=== PATIENT | female | born 1995 | race Caucasian/White ===

== ENCOUNTER 2020-03-28 14:43 | Emergency (ER) | payer OTHER, SELFPAY ==
--- NOTE | ~2020-03-28 | XR_ITS ---
XR wrist LT min 3V DATE: 03/28/2020 15:16 INDICATION: Dropped a couch on wrist yesterday. Diffuse wrist pain, particularly at first carpometaca rpal joint TECHNIQUE: 4 views COMPARISON: None FINDINGS: No fracture or dislocation, periosteal reaction or bone destruction is detected. IMPRESSION: No fracture or dislocation Reviewed, dictated and finalized at location B. IMPRESSION: No fracture or dislocation
--- NOTE | ~2020-03-28 | XR_ITS ---
XR hand LT min 3V DATE: 03/28/2020 15:15 INDICATION: TECHNIQUE: 3 views COMPARISON: None FINDINGS: No fracture or dislocation, periosteal reaction or bone destruction. IMPRESSION: Negative Reviewed, dictated and finalized at location B. IMPRESSION: Negative
[2020-03-28 15:01] VITALS: BP 100/66; PULSE 96; RESP 16; TEMP 37.1; O2SAT 100
--- NOTE | 2020-03-28 15:16 | ED.UPPEXIN ---
HPI - Extremity Injury (Upper) General Chief Complaint: Extremity Injury, Upper Stated Complaint: left hand/wrist injury Time Seen by Provider: 03/28/20 15:16 Source: patient Mode of arrival: ambulatory Limitations: no limitations History of Present Illness HPI narrative: Denise Glasgow is a 24 yo female with PMH of diabetes, migraine, comes to [facility] care with a L wrist/hand injury after dropping a piece of furniture on L hand while moving it yesterday. 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 She has been told she could have pre-hypertension Patient states that the base of the left thumb hurts and it hurts for her to flex and extend her arm fully; pain is localized in wrist to base of thumb Related Data Home Medications Medication Instructions Recorded Confirmed albuterol sulfate [ProAir HFA] 1 inh INHALATION QID PRN 10/03/19 insulin glargine [Lantus U-100 20 unit SUBCUT HS 10/03/19 Insulin] insulin lispro [Admelog SoloStar 1 unit SUBCUT TID 10/03/19 U-100 Insulin] topiramate 25 mg PO HS 10/03/19 lamotrigine 03/28/20 Allergies Allergy/AdvReac Type Severity Reaction Status Date / Time amoxicillin Allergy Rash Verified 10/03/19 09:20 sumatriptan AdvReac BODY FELT Verified 10/03/19 09:21 LIKE IT WAS ON FIRE Review of Systems Review of Systems: Narrative: CONSTITUTIONAL: Denies fever, chills, sweats. EYES: Denies visual changes, redness, discharge. ENT: Denies rhinorrhea, congestion, sore throat, otalgia. CARDIOVASCULAR: Denies chest pain, palpitations, edema. RESPIRATORY: Denies dyspnea, wheezing, cough GASTROINTESTINAL: Denies abdominal pain, nausea, vomiting, diarrhea. GENITOURINARY: Denies dysuria, hematuria, abnormal discharge SKIN: Denies rash or itching. NEUROLOGIC: Denies numbness, or focal weakness. PSYCHIATRIC: Denies anxiety or depression. Extremity: Left wrist and hand pain PMFSH Family History Family History Mother Family history of osteoporosis Family history of mental disorder Hypertension Grandparent Family history of osteoporosis Hypertension Malignant neoplasm of prostate Family history of congestive heart failure Family history of hearing loss Diabetes mellitus Father Depression Hypertension Family history of chronic obstructive pulmonary disease Family history of diabetes mellitus in first degree relative Family history of coronary artery disease Family history of hearing loss Sibling Family history of attention deficit hyperactivity disorder (ADHD) Social History Social History (Updated 03/28/20 @ 15:25 by April Moreno CNP) Smoking packs per day: 1 Smoking cigarettes per day: 20.0 Smoking status: Current every day smoker Alcohol intake: never Comments At time of signature, I agree with nursing past medical, surgical, social and family history. There is no relevant family history pertinent to the presenting complaint. Exam Narrative: Exam Narrative: GENERAL: This is a well-nourished, well-developed patient, in mild distress. HEAD: normocephalic, atraumatic. EYES: Sclera clear/white. Vision is grossly intact. EARS: External ears normal,. Hearing grossly intact. NOSE: External nose normal without nasal discharge, nares without redness, no rhinorrhea. THROAT: Mucous membranes moist, NECK: Neck suppler CARDIOVASCULAR: Regular rate and rhythm without murmurs, gallops, or rubs. RESPIRATORY: Clear to auscultation. Breath sounds equal bilaterally. No wheezes, rales, or rhonchi. GASTROINTESTINAL: Abdomen soft, SKIN: warm, intact with no suspicious lesions or rash, good texture and turgor. NEURO: awake, alert, and oriented to person, place and time. There were no obvious focal neurologic abnormalities. Steady gait EXTREMITIES: Normal range of motion on R; L - pain at base of thumb, good energy finger strength, mild pain on supin
== END 2020-03-28 15:43 | disposition home or self-care (01) ==
PROVIDERS: Emergency Provider Nurse Practitioner; PCP Family Medicine
DX: S63.502A Unspecified sprain of left wrist, initial encounter (principal); S66.912A Strain of unspecified muscle, fascia and tendon at wrist and hand level, left hand, initial encounter; W20.8XXA Other cause of strike by thrown, projected or falling object, initial encounter; E10.9 Type 1 diabetes mellitus without complications; F17.210 Nicotine dependence, cigarettes, uncomplicated
CPT/HCPCS: 73110; 73130; 99213; G0463

== ENCOUNTER 2020-08-11 12:35 | Emergency (ER) | payer OTHER, SELFPAY ==
--- NOTE | ~2020-08-11 | CT_ITS ---
EXAMINATION: CT abdomen pelvis wo con DATE: 08/11/2020 14:18 INDICATION: Left flank pain. Hematuria. TECHNIQUE: Computed tomography (CT) of the abdomen and pelvis was performed without intravenous contr ast. Automated exposure control and iterative reconstruction technique were employed. The dose-length product was 177.49 mGy-cm. COMPARISON: CT abdomen and pelvis 01/30/2018 FINDINGS: The visualized portions of the lung bases demonstrate mild atelectasis. No pleural effusion . The heart size is normal. No pericardial effusion. The liver, gallbladder, spleen, pancreas, and ad renal glands are normal. There is a 2 mm stone in right kidney. There is a 7 mm stone in left kidney. There are no dilated loops of bowel. The appendix is not visualized. There are no pathologically enl arged lymph nodes. There is no free intraperitoneal fluid. The bones are unremarkable. IMPRESSION: 1. Bilateral nonobstructing kidney stones. Reviewed, dictated and finalized at location B. . [employer]
[2020-08-11 13:13] VITALS: BP 128/87; PULSE 105; RESP 16; TEMP 36.4; O2SAT 99
--- NOTE | 2020-08-11 13:24 | ED.FEMALEGU ---
HPI - Female Genitourinary General Chief complaint: Urogenital-Female Stated complaint: HEMATURIA,L FLANK PAIN Time Seen by Provider: 08/11/20 13:22 Source: patient Mode of arrival: ambulatory Limitations: no limitations History of Present Illness HPI Narrative: Patient is a 25-year-old female complaining of left flank pain accompanied by hematuria that started 1 week ago. Patient states her pain is a 6 out of 10 sharp, nonradiating. Patient denies any nausea, vomiting, diarrhea or fever. Patient denies any abdominal pain, chest pain or shortness of breath. Related Data Home Medications Medication Instructions Recorded Confirmed albuterol sulfate [ProAir HFA] 1 inh INHALATION QID PRN 10/03/19 insulin glargine [Lantus U-100 20 unit SUBCUT HS 10/03/19 Insulin] insulin lispro [Admelog SoloStar 1 unit SUBCUT TID 10/03/19 U-100 Insulin] topiramate 25 mg PO HS 10/03/19 lamotrigine 03/28/20 Allergies Allergy/AdvReac Type Severity Reaction Status Date / Time amoxicillin Allergy Rash Verified 10/03/19 09:20 sumatriptan AdvReac BODY FELT Verified 10/03/19 09:21 LIKE IT WAS ON FIRE Review of Systems Review of Systems: All systems reviewed & are unremarkable except as noted in HPI and below Constitutional: Constitutional: Denies body ache(s), Denies chills, Denies excessive sweating, Denies fatigue, Denies fever(s), Denies headache(s), Denies lethargy, Denies malaise, Denies weakness and Denies weight loss Eyes: Eyes: Denies blurry vision, Denies change in vision and Denies loss of vision ENT: Denies dizziness, Denies ear discharge, Denies headache(s), Denies lip swelling, Denies epistaxis, Denies nasal congestion, Denies neck pain, Denies throat swelling and Denies tongue swelling Cardiovascular: Cardiovascular: Denies chest pain, Denies chest pain at rest, Denies chest pain with activity, Denies diaphoresis, Denies rapid heart rate, Denies edema, Denies irregular heart rhythm, Denies lightheadedness, Denies palpitations, Denies dyspnea and Denies dyspnea on exertion Respiratory: Respiratory: Denies chest congestion, Denies cough, Denies hemoptysis, Denies dyspnea and Denies dyspnea on exertion Gastrointestinal: Gastrointestinal: Denies abdominal pain, Denies melena, Denies hematochezia, Denies diarrhea, Denies nausea, Denies vomiting and Denies hematemesis Musculoskeletal: Musculoskeletal: Denies abnormal gait, Denies deformity, Denies joint swelling, Denies limited range of motion, Denies neck pain and Denies numbness Neurologic: Denies Abnormal speech present, Denies abnormal gait, Denies confusion, Denies dizziness, Denies headache(s), Denies focal weakness, Denies loss of vision, Denies numbness, Denies Other visual disturbances, Denies Sensory deficit (Neuro) and Denies weakness Psychiatric: Psychiatric: Denies confusion, Denies depression, Denies auditory hallucinations, Denies homicidal ideation and Denies suicidal ideation Endocrine: Endocrine: Denies cold intolerance, Denies excessive sweating, Denies fatigue, Denies heat intolerance and Denies palpitations Hematologic/Lymphatic: Hematologic/Lymphatic: Denies easy bleeding and Denies easy bruising Allergic/Immunologic: Allergic/Immunologic: Denies lip swelling, Denies throat swelling and Denies tongue swelling [facility] Family History Family History Mother Family history of osteoporosis Family history of mental disorder Hypertension Grandparent Family history of osteoporosis Hypertension Malignant neoplasm of prostate Family history of congestive heart failure Family history of hearing loss Diabetes mellitus Father Depression Hypertension Family history of chronic obstructive pulmonary disease Family history of diabetes mellitus in first degree relative Family history of coronary artery disease Family history of hearing loss Sibling Family history of attention deficit
[2020-08-11 13:45] LABS: Basophils Absolute Auto 0.1 K/mm3 (0.0-0.1); Basophils Percent Auto 1.2 % (0.2-1.2); Eosinophils Absolute Auto 0.2 K/mm3 (0-0.3); Eosinophils Percent Auto 2.4 % (0-4.4); Hematocrit 40.6 % (37.0-47.0); Hemoglobin 13.9 g/dL (12.0-15.0); Immature Granulocyte Absolute 0.04 K/mm3 (0.00-0.031); Immature Granulocyte Percent A 0.5 % (0-0.5); Lymphocytes Absolute Auto 2.82 K/mm3 (0.9-3.2); Lymphocytes Percent Auto 35.2 % (18.3-44.2); Mean Corpuscular HGB Conc 34.2 g/dl (32-36); Mean Corpuscular Hemoglobin 31.7 pg (26-34); Mean Corpuscular Volume 92.5 fl (80-100); Mean Platelet Volume 10.1 fl (7.4-10.4); Monocytes Absolute Auto 0.4 K/mm3 (0.1-0.6); Monocytes Percent Auto 4.5 % (2.6-8.5); Neutrophils Absolute Auto 4.5 K/mm3 (1.3-6.7); Neutrophils Percent Auto 56.2 % (45.5-73.1); Platelet Count Result 372 k/mm3 (150-375); Red Blood Count 4.39 M/mm3 (4.2-5.4); Red Cell Distribution Width 12.6 % (11.5-14.5)
[2020-08-11 13:58] LABS: Anion Gap 7 mmol/L (8-16); Blood Urea Nitrogen 21 mg/dL (7-17); Calcium 9.3 mg/dL (8.4-10.2); Carbon Dioxide 31 mmol/L (22-30); Chloride 100 mmol/L (98-107); Estimated Glomerular Filt Rate > 60; Glucose 248 mg/dL (65-105); Sodium 138 mmol/L (137-145)
[2020-08-11 14:00] LABS: Add Urine Microscopic? YES; Appearance Urine Cloudy (Clear); Bilirubin Urine Negative (Negative); Blood Urine 3+ (Negative); Color Urine Red (Yellow); Glucose Urine UA 3+ mg/dL (Negative); Ketones Urine Negative (Negative); Leukocyte Esterase Ur Negative LEU/UL (Negative); Mucus Urine Few /lpf; Nitrate Urine Negative (Negative); Protein Urine 2+ mg/dL (Negative); RBC Urine >75 /hpf (0-2); Specific Grav Ur 1.028 (1.001-1.035); Squamous Epithelial Cell Urine Few /hpf (Few); Urobilinogen Urine Negative mg/dL (<2.0)
[2020-08-11] MEDS: KETOROLAC 30 MG/ML VIAL (*BKC) IV PUSH (14:01)
[2020-08-11] MEDS: SODIUM CHLORIDE 0.9% IV 1,000 ML 999 ML IV CONT (14:01)
[2020-08-11 16:12] VITALS: BP 119/68; PULSE 72; RESP 16; O2SAT 100
== END 2020-08-11 16:12 | disposition home or self-care (01) ==
PROVIDERS: Emergency Medicine; Emergency Provider Emergency Medicine; PCP Family Medicine
DX: N20.0 Calculus of kidney (principal); E10.65 Type 1 diabetes mellitus with hyperglycemia; F17.210 Nicotine dependence, cigarettes, uncomplicated
CPT/HCPCS: 36415; 74176; 80048; 81001; 81025; 85025; 96361; 96374; 99284; J1885; J7030

== ENCOUNTER 2021-04-22 09:23 | Outpatient (CLI) | payer OTHER, SELFPAY ==
--- NOTE | ~2021-04-22 | XR_ITS ---
EXAMINATION: XR lumbar puncture diagnostic DATE: 04/22/2021 12:06 INDICATION: Multiple sclerosis TECHNIQUE: The procedure including the risks and benefits was discussed with the patient. Risks discu ssed included spinal headache, cerebrospinal fluid leak, bleeding, and infection. The patient underst ood the risks and agreed to proceed. A timeout was performed to verify the patient's name, date of , and procedure to be performed. The skin overlying the L4-L5 level was prepped and draped in usual sterile fashion. Subcutaneous 1% lidocaine was used for local anesthesia. A 22 gauge spinal n eedle was advanced under fluoroscopic guidance. The needle was removed and the entry site was cleaned and dressed. There were no immediate complications. The patient was taken to the nursing area for o bservation. FINDINGS: Real-time fluoroscopy demonstrates the needle at the L4-L5 level. Opening pressure was 12 c m water. (Normal range is variably defined as 6-20 cm water and up to 25 cm water in obese patients. Pressure >25 cm water is one of the modified Dandy criteria for idiopathic intracranial hypertension) . 15 mL of clear, colorless fluid was collected in 4 tubes. IMPRESSION: 1. Successful fluoro-guided lumbar puncture. Reviewed, dictated and finalized at location A.
[2021-04-22 10:12] LABS: Basophils Absolute Auto 0.1 K/mm3 (0.0-0.1); Basophils Percent Auto 1.1 % (0.2-1.2); Eosinophils Absolute Auto 0.2 K/mm3 (0-0.3); Eosinophils Percent Auto 2.1 % (0-4.4); Hematocrit 42.6 % (37.0-47.0); Hemoglobin 14.5 g/dL (12.0-15.0); Immature Granulocyte Absolute 0.05 K/mm3 (0.00-0.031); Immature Granulocyte Percent A 0.5 % (0-0.5); Lymphocytes Absolute Auto 3.29 K/mm3 (0.9-3.2); Mean Platelet Volume 10.3 fl (7.4-10.4); Monocytes Absolute Auto 0.5 K/mm3 (0.1-0.6); Monocytes Percent Auto 5.5 % (2.6-8.5); Neutrophils Absolute Auto 5.2 K/mm3 (1.3-6.7); Neutrophils Percent Auto 55.8 % (45.5-73.1); Platelet Count Result 329 k/mm3 (150-375); Red Blood Count 4.68 M/mm3 (4.2-5.4); White Blood Count 9.4 K/mm3 (4.5-10.0)
[2021-04-22 10:21] LABS: INR 0.8; Prothrombin Time 11.5 Seconds (11.1-14.7)
[2021-04-22 10:45] VITALS: BP 109/71; PULSE 119; RESP 20; O2SAT 100
[2021-04-22 11:28] VITALS: BP 119/80; PULSE 92; RESP 20; O2SAT 100
[2021-04-22 11:45] VITALS: BP 111/78; PULSE 93; RESP 16; O2SAT 98
--- NOTE | 2021-04-22 11:55 | SUR.PHASEII ---
1145 no complaints headache,or blurred vision.
[2021-04-22 12:08] LABS: Glucose Point of Care 135 mg/dl (65-105)
[2021-04-22 12:15] VITALS: BP 108/75; PULSE 98; RESP 16
[2021-04-22 12:45] VITALS: BP 110/76; PULSE 81; RESP 16
[2021-04-22 13:02] LABS: Glucose CSF 152 mg/dL (40-70); Total Protein CSF 49 mg/dL (12-60)
[2021-04-22 13:06] LABS: Appearance CSF Clear (Clear); CSF source CSF; Color CSF Colorless (Colorless); Nucleated Cell CSF 10 /uL (0-5); Red Blood Cell CSF 100 (0-2)
[2021-04-22 13:10] LABS: Lymphocytes CSF 92 % (40-80); Monocytes CSF 8 % (15-45); Neutrophils CSF 0 % (0-6)
[2021-04-22 13:15] VITALS: BP 108/76; PULSE 88; RESP 16
--- NOTE | 2021-04-22 13:20 | SUR.PHASEII ---
1320- Dr. Harris to outpatient room 14 to assess [address] Per Dr[address] Harris patient is OK for discharge home at this time.
--- NOTE | 2021-04-22 13:25 | SUR.PHASEII ---
1325- Reviewed patient's discharge instructions and patient verbalized understanding at this time.
[2021-04-29 04:05] LABS: Albumin, CSF 18.3 mg/dL (8.0-42.0); Albumin, Serum 4.4 g/dL (3.5-5.2); IgG Index, CSF 0.51 (<0.66); IgG, CSF 1.7 mg/dL (0.8-7.7); Immunoglobulin G, Serum 799 mg/dL (600-1640); Myelin Basic Protein, CSF <2.0 mcg/L (2.0-4.0)
== END 2021-04-22 13:30 | disposition home or self-care (01) ==
PROVIDERS: Radiology Diagnostic Radiology; PCP Family Medicine; Visit Provider Psychiatry & Neurology Neurology
DX: G35 Multiple sclerosis (principal)
CPT/HCPCS: 36415; 62328; 82040; 82042; 82784; 82945; 82948; 83873; 83916; 84157; 85025; 85610; 87070; 89051

== ENCOUNTER 2021-11-16 00:19 | Day surgery (SDC) | payer OTHER, SELFPAY ==
[2021-11-13 12:54] VITALS: BMI 21.2
--- NOTE | 2021-11-13 13:00 | PM.HPGS ---
History of Present Illness History of Present Illness Consent: Risks, benefits, and alternatives have been discussed and questions answered. Patient agrees to proceed with procedure. Chief complaint: abdominal pain, bloating Narrative: Denise Glasgow is a 26 year old female who has been troubled by severe diarrhea for about 2 years this is accompanied by weight loss and abdominal discomfort. she often gets sick to her stomach when she eats a meal and then this leads to a bowel movement She has often afraid to eat because she knows that she will have abdominal discomfort and then loose bowels, having up to 8 bowel movements per day.. She has also been anemic although her last blood counts were said to be better. She had had testing for celiac disease with a blood test and she had a colonoscopy a month or so ago that was normal. That was done at [facility] and we are attempting to obtain those results. Although she states that the only did a colonoscopy, she was told after the procedure that they scraped my colon to check for bacteria this would be a specimen for H pylori. She is absolutely certain however that she did not have an EGD and she added that she never did hear results from anybody about the test.There is no family history of digestive diseases except her father had cancer of the colon. She has no history of liver disease pancreatic disease. She has no specific food intolerance is except that red meat seems to give her more difficulty than anything else and dairy will cause more bloating and gas 3 days after consuming it. She has lost about 27 lb in the last year or 2. She was recommended to take Imodium. States she took it for a few days, then caused constipation (so quite using it). She rarely eats breakfast. She recalls our conversation in the office about how it is important the breakfast to try to have regular bowel movements Review of Systems Review of Systems: All systems reviewed & are unremarkable except as noted in HPI and below PMFSH Past Medical History Medical History Anemia Normal colonoscopy Family History Family History Mother Family history of osteoporosis Family history of mental disorder Hypertension Grandparent Family history of osteoporosis Hypertension Malignant neoplasm of prostate Family history of congestive heart failure Family history of hearing loss Diabetes mellitus Father Depression Hypertension Family history of chronic obstructive pulmonary disease Family history of diabetes mellitus in first degree relative Family history of coronary artery disease Family history of hearing loss Sibling Family history of attention deficit hyperactivity disorder (ADHD) Social History Social History Smoking packs per day: 1.5 Smoking cigarettes per day: 30.0 Years smoked: 6 Smoking pack-years: 9.00 Smoking status: Current every day smoker Tobacco type: cigarettes Alcohol intake: never Substance use: never Substance use type: does not use Living arrangements: with family Gender identity (if verbalized by the patient): Female Spiritual care concerns: No Meds Home Medications and Allergies Home Medications Medication Instructions Recorded Confirmed Type insulin lispro 200 unit/mL (3 mL) 30 unit SUBCUT QACBREAK 03/24/21 11/13/21 History subcutaneous pen insulin glargine [Lantus Solostar 14 unit SUBCUT HS 04/23/21 11/13/21 History U-100 Insulin] clonazepam 0.5 mg PO DAILY 11/13/21 11/13/21 History Allergies Allergy/AdvReac Type Severity Reaction Status Date / Time amoxicillin Allergy Rash Verified 11/13/21 12:53 sumatriptan AdvReac BODY FELT Verified 11/13/21 12:53 LIKE IT WAS ON FIRE zolpidem [From Ambien] AdvReac Hallucinati Verified 11/13
[2021-11-16 13:10] VITALS: BP 107/71; PULSE 102; RESP 18; TEMP 36.8; O2SAT 99; BMI 21.3
[2021-11-16] MEDS: LACTATED RINGERS 1,000 ML 150 ML IV CONT (13:19)
[2021-11-16 13:24] LABS: Glucose Point of Care 271 mg/dl (65-105)
--- NOTE | 2021-11-16 13:26 | WPDANESEPPF ---
Anes - Initial Pre Proc Eval Procedure: Operation Date: 11/16/21 14:00 Proposed Procedures p Esophagogastroduodenoscopy - Enrique Coronado MD Date/Time: 11/16/21 13:26 Surgeon: Enrique Coronado MD Pre Op Diagnosis: abdominal pain, bloating Patient Data Age: 26 Gender: F Height: 1.63 m Weight: 56.3 kg Last Vital Signs Temp 36.8 C 11/16/21 13:10 Pulse 102 H 11/16/21 13:10 Resp 18 11/16/21 13:10 BP 107/71 11/16/21 13:10 Pulse Ox 99 11/16/21 13:10 Allergies Allergy/AdvReac Type Severity Reaction Status Date / Time amoxicillin Allergy Rash Verified 11/13/21 12:53 sumatriptan AdvReac BODY FELT Verified 11/13/21 12:53 LIKE IT WAS ON FIRE zolpidem [From Ambien] AdvReac Hallucinati Verified 11/13/21 12:53 ng Home Medications Medication Instructions Recorded Confirmed Type insulin lispro 200 unit/mL (3 mL) 30 unit SUBCUT QACBREAK 03/24/21 11/13/21 History subcutaneous pen insulin glargine [Lantus Solostar 14 unit SUBCUT HS 04/23/21 11/13/21 History U-100 Insulin] clonazepam 0.5 mg PO DAILY 11/13/21 11/13/21 History Laboratory Tests 11/16/21 13:19 POC Capillary Glucose 271 mg/dl H mg/dl (65-105) Patient hx anesthesia problems: none Family hx anesthesia problems: none Results Review: All pre-operative results and documents have been reviewed as part of the pre-operative evaluation. [facility] Past Medical History Medical History (Updated 04/21/21 @ 14:58 by Enrique Coronado MD) Anemia Normal colonoscopy Family History Family History Mother Family history of osteoporosis Family history of mental disorder Hypertension Grandparent Family history of osteoporosis Hypertension Malignant neoplasm of prostate Family history of congestive heart failure Family history of hearing loss Diabetes mellitus Father Depression Hypertension Family history of chronic obstructive pulmonary disease Family history of diabetes mellitus in first degree relative Family history of coronary artery disease Family history of hearing loss Sibling Family history of attention deficit hyperactivity disorder (ADHD) Social History Social History Smoking packs per day: 1.5 Smoking cigarettes per day: 30.0 Years smoked: 6 Smoking pack-years: 9.00 Smoking status: Current every day smoker Tobacco type: cigarettes Alcohol intake: never Substance use: never Substance use type: does not use Living arrangements: with family Gender identity (if verbalized by the patient): Female Spiritual care concerns: No Anes - Eval Final PreProcedure Day of Procedure 11/16/21 13:26 Patient weight: normal Heart: regular rate and rhythm Lungs: clear to auscultation Airway: Mallampati scale class II Neurological: alert and oriented Last oral intake: >/= 8 hours ASA classification: II Emergent: no Anesthetic plan: proceed Anesthesia type and monitoring: general GIVS and standard monitoring Results Review: All pre-operative results and documents have been reviewed as part of the pre-operative evaluation. Informed Consent: The patient's anesthetic plan and its attendant risks and benefits were discussed with the patient/family/POA. Questions were solicited and answers provided to the satisfaction of the patient/family/POA.
[2021-11-16] MEDS: BENZOCAINE (*SP) 60 ML SPRAY CAN (HURRICAINE) 1 SPRAY MUCOUS MEM (13:43)
[2021-11-16 13:54] VITALS: BP 108/69; PULSE 100; RESP 22; O2SAT 99
[2021-11-16 14:04] VITALS: BP 110/70; PULSE 99; RESP 26; O2SAT 99
[2021-11-16 14:07] LABS: Glucose Point of Care 269 mg/dl (65-105)
[2021-11-16 14:14] VITALS: BP 107/74; PULSE 93; RESP 22; O2SAT 96
== END 2021-11-16 14:24 | disposition home or self-care (01) ==
PROVIDERS: Visit Provider Internal Medicine Gastroenterology
PROC: 0DJ08ZZ Inspection of Upper Intestinal Tract, Via Natural or Artificial Opening Endoscopic (ICD-10-PCS; CPT 43235; principal; 2021-11-16 14:00)
DX: R10.9 Unspecified abdominal pain (principal); R14.0 Abdominal distension (gaseous); Z79.4 Long term (current) use of insulin; R63.4 Abnormal weight loss; D64.9 Anemia, unspecified; F17.210 Nicotine dependence, cigarettes, uncomplicated; R19.7 Diarrhea, unspecified
CPT/HCPCS: 43239; 82948; 87081; 88305; J2001; J2704; J7120

== ENCOUNTER 2024-12-30 21:58 | Emergency (ER) | payer OTHER, SELFPAY ==
--- NOTE | ~2024-12-30 | CT_ITS ---
Non-contrast Head CT History: Head injury Technique: Axial non-contrast imaging of the brain was performed. Dose reduction technique was used on this scan by utilizing automated exposure control and iterative reconstruction technique. The dose -length product (DLP) was 605.33 mGy-cm. Findings: There is no evidence of intracranial hemorrhage, mass lesion, or acute infarct. Brain par enchyma appears normal. The ventricles and subarachnoid spaces are normal in size. The calvarium ap pears normal. The visualized paranasal sinuses and mastoid air cells are clear. Impression: No significant abnormality seen. Reviewed, dictated and finalized at location . Impression: No significant abnormality seen.
--- NOTE | ~2024-12-30 | CT_ITS ---
Noncontrast CT scan of the cervical spine Technique: Multiple contiguous axial [address] images of the cervical spine were obtained and rec onstructed in 2D sagittal and coronal planes on the acquisition scanner. Dose reduction technique was used on this scan by utilizing automated exposure control, adjustment of the mA and/or kV according to patient size. The dose-length product (DLP) was 102.34 mGy-cm. Clinical History: C7 tenderness Findings: No fractures or dislocations. Unremarkable visualized bony structures. The intervertebral disc spaces are preserved. No prevertebral soft tissue swelling. Impression: No fracture or subluxation of the cervical spine. Reviewed, dictated and finalized at location . Impression: No fracture or subluxation of the cervical spine.
--- NOTE | ~2024-12-30 | XR_ITS ---
Right Knee Technique: AP, lateral, and oblique views were obtained. Clinical History: Pain Findings: No fracture or dislocation is seen. Osseous alignment is anatomic. Joint spaces are preserv ed without degenerative or erosive change. Soft tissues are unremarkable. No joint effusion is seen. Impression: Unremarkable right knee radiographs. Reviewed, dictated and finalized at [facility]. Impression: Unremarkable right knee radiographs.
[2024-12-30 22:00] VITALS: BP 128/53; PULSE 80; RESP 16; TEMP 36.7; O2SAT 100
--- OUTSIDE RECORDS SUMMARY | 2024-12-30 22:00 | XMS_ITS | Encounter Summary ---
Author Organization [facility] Address [address] [facility] [place] [address] Phone Care Team Providers Care Turning Machine Set Up Operator Name Role Phone Arthur King RHIT, LANDSCAPE NURSERYMAN Primary Care Pr ovider Luzmaria Cates MD Unavailable Henri West MD Unavailable [phone] Maura Lenz RHIT, LANDSCAPE NURSERYMAN Unavailable [phone] Reason for Referral * Radiology Services (Routine) - Authorized Specialty Diagnoses / Procedures Referred By Contac t Referred To Contact Radiology Diagnoses Abnormal mammogram Procedures DOMINIQUE DIAG LEFT UNILATERAL DIGITAL W CAD W RAFFI Suresh Wright MD [address] [address] Phone: tel: fax: Referral ID Status Reason Start Date Expiration Date V isits Requested Visits Authorized [id number] Authorized 11/16/2024 1 1 * Radiology Services (Routine) - Authorized Specialty Diagnoses / Procedures Referred By Contac t Referred To Contact Radiology Diagnoses Abnormal mammogram Procedures DOMINIQUE BREAST LIMITED Suresh Wright MD #[address] [address] Phone: tel: fax: Referral ID Status Reason Start Date Expiration Date V isits Requested Visits Authorized [id number] Authorized 11/16/2024 1 1 Encounter Details Date Type Department Care Team (Late st Contact Info) Description 11/16/2024 Transcribe Orders [facility] [place] [address] Suresh Wright MD [address] [place] [address] [address] Abnormal mammogram (Primary Dx) Social History Tobacco Use Types Packs/Day Years Used Date Smoking Tobacco: Never Smokeless Tobacco: Never Comments:Former cigarette us e; stopped about 07/2023 Currently uses vape Alcohol Use Standard Drinks/Week Comments Not Currently 0 (1 standard drink = 0.6 oz pur e alcohol) [facility] Utilities Answer Date Recorded In the past 12 months has e [employer], gas, oil, or water [employer] threatened to shut off services in your home? Patient declined 11/13/2024 Social Connection and Isolat ion Panel [NHANES] Answer Date Recorded In a typical week, how many times do you talk on the phone with family, friends, or neighbors? More than three times a week 11/13/2024 How often do you get togethe r with friends or relatives? Patient declined 11/13/2024 How often do you attend chur or shinto services? Patient declined 11/13/2024 Do you belong to any clubs o r organizations such as latter-day groups, unions, fraternal or athletic groups, or school groups? Patient declined 11/13/2024 How often do you attend meet ings of the clubs or organizations you belong to? Patient declined 11/13/2024 Are you , , di vorced, , never , or living with a partner? Patient declined 11/13/2024 AUDIT-C Answer Date Recorded Q1: How often do you have a drink containing alc ohol? Patient declined 11/13/2024 Q2: How many drinks containi ng alcohol do you have on a typical day when you are drinking? Patient declined 11/13/2024 Q3: How often do you have si x or more drinks on one occasion? Patient declined 11/13/2024 Overall Financial Resource Strain (CARDIA) Answe r Date Recorded How hard is it for you to pa y for the very basics like food, housing, medical care, and heating? Patient declined 11/13/2024 PHQ-2 Answer Date Recorded Total Score - Questions 1-9 0 08/06 [facility] - Occupational Stress Questionnaire Answer Date Recorded Do you feel stress - tense, restless, nervous, or anxious, or unable to sleep at night because your mind is troubled all the time - these days? Very much 11/13/2024 Exercise Vital Sign Answer Date Recorde d On average, how many days pe r week do you engage in moderate to strenuous exercise (like a brisk walk)? 5 days 11/13/2024 On average, how many minutes do you engage in exercise at this level? 150+ min 11/13/2024 Hunger Vital Sign Answer Date Recorded Within the past 12 months, y ou worried that your food would run out before you got the money to buy more. Patient declined Within the past 12 months, t he food you bought just didn't last and you didn't have money to get more. Patient declined 07/2025 PRAPARE - Transportation Answer Date Re corded In the past 12 months, has l ack of transportation kept you from medical appointments or from getting medications? Patient declined 11/13/2024 In the past 12 months, has l ack of transportation kept you from meetings, work, or from getting things needed for daily living? Patient declined 11/13/2024 Housing Stability Vital Sign Answer Junior e Recorded In the last 12 months, was t here a time when you were not able to pay the mortgage or rent on time? Patient declined 11/14/19 25 In the past 12 months, how m any times have you moved where you were living? 0 11/13/2024 At any time in the past 12 m [facility], were you homeless or living in a jail (including now)? Patient declined 11/13/2024 Education Answer Date Recorded What is the highest level of school you have completed or the highest degree you have received? Some college, no degree 02/23/2023 Sexually Active Control Partners Comments Yes None Male Comments No Sex and Gender Information Value Date Recorded Sex Assigned at Not on file Legal Sex Female 9:41 AM CDT Gender Identity Not on file Sexual Orientation Not on file documented as of this encounter Progress Notes * Suresh Wright MD - 11/16/2024 9:20 AM CDT Pended orders signed. Thanks! documented in this encounter Plan of Treatment Upcoming Encounters Date Type Department Care Team (Late st Contact Info) Description 01/07/2025 9:30 AM CDT Office Visit [facility] - [facility] - [place] #2 [place] [address] Luzmaria Cates MD #[address] [address] 01/11/2025 1:30 PM CDT [facility] 1 [place] [address] Suresh Wright MD #2 [facility] [address] [place] [address] Discharge Disposition: Discharged to home or Selfcare 01/14/2025 8:30 AM CDT Office Visit [facility] - [facility] Medicine [facility] #2 [place] [address] Arthur King APRN, LANDSCAPE NURSERYMAN #2 [facility] [address] [place] [address] Scheduled Orders Name Type Priority Associated Diagnoses Orde r Schedule DOMINIQUE US BREAST LIMITED LT Imaging Routine Abnormal mammogram Expected: 12/17/2024, Expires: 05/19/2025 DOMINIQUE DIAG LEFT UNILATERAL DIGITAL W CAD W RAFFI Imaging Routine Abnormal mammogram Expected: 12/17/2024, Expires: 05/19/2025 documented as of this encounter Visit Diagnoses Diagnosis Abnormal mammogram- Primary Abnormal mammogram, unspecified documented in this encounter Additional Health Concerns Infection Onset Date Last Indicated Resolved Time Respiratory Rule-Out 12/13/2024 12/13/2024 025 10:07 AM CDT COVID - 19 12/13/2024 12/13/2024 12/13/2024 10:0 7 AM CDT Assessment Noted Time PHQ-9 Depression Total Score: 0 08/28/20 8:02 AM INDUSTRIAL CAFETERIA MANAGER documented as of this encounter Care Teams Turning Machine Set Up Operator Relationship Specialty Start Date End Date Arthur King, RHIT, LANDSCAPE NURSERYMAN #2 [facility] [address] [place] [address] PCP - General Advanced Practice Nurse 12/24/22 Luzmaria Cates MD #2 [facility] [address] [place] [address] Consulting Physician Endocrinology 02/20/24 Henri West MD #[address] [address] Consulting Physician General Surgery 07/20/24 Maura Lenz, RHIT, LANDSCAPE NURSERYMAN #2 [place] [address] Nurse Practitioner Advanced Practice Nurse 12/07/24 documented as of this encounter
--- OUTSIDE RECORDS SUMMARY | 2024-12-30 22:00 | XMS_ITS | Encounter Summary ---
Author Organization [facility] Address [address] [facility] [place] [address] Phone Care Team Providers Care Litigation Counsel Name Role Phone Arthur King APRN, ADVERTISEMENT DISTRIBUTOR Primary Care Pr ovider Luzmaria Cates MD Unavailable Henri West MD Unavailable [phone] Maura Lenz APRN, ADVERTISEMENT DISTRIBUTOR Unavailable [phone] Encounter Details Date Type Department Care Team (Late st Contact Info) Description 12/21/2024 Results Follow-Up [facility] - Family Medicine - [place] #2 [place] [address] Arthur King APRN, ADVERTISEMENT DISTRIBUTOR #[address] [address] XR CHEST 2 VIEWS Social History Tobacco Use Types Packs/Day Years Used Date Smoking Tobacco: Never Smokeless Tobacco: Never Comments:Former cigarette us e; stopped about 07/2023 Currently uses vape Alcohol Use Standard Drinks/Week Comments Not Currently 0 (1 standard drink = 0.6 oz pur e alcohol) [facility] Utilities Answer Date Recorded In the past 12 months has [employer], gas, oil, or water [employer] threatened to shut off services in your home? Patient declined 12/12/2024 Social Connection and Isolation Panel [NHANES] A nswer Date Recorded In a typical week, how many times do you talk on the phone with family, friends, or neighbors? Patient declined 12/12/2024 How often do you get togethe r with friends or relatives? Patient declined 12/12/2024 How often do you attend mu-ism or mormon serv ices? Patient declined 12/12/2024 Do you belong to any clubs o r organizations such as mu-ism groups, unions, fraternal or athletic groups, or school groups? Patient declined 12/12/2024 How often do you attend meet ings of the clubs or organizations you belong to? Patient declined 12/12/2024 Are you , , di vorced, , never , or living with a partner? Patient declined 12/12/2024 AUDIT-C Answer Date Recorded Q1: How often do you have a drink containing alc ohol? Patient declined 12/12/2024 Q2: How many drinks containi ng alcohol do you have on a typical day when you are drinking? Patient declined 12/12/2024 Q3: How often do you have si x or more drinks on one occasion? Patient declined 12/12/2024 Overall Financial Resource Strain (CARDIA) Answe r Date Recorded How hard is it for you to pa y for the very basics like food, housing, medical care, and heating? Patient declined 12/12/2024 PHQ-2 Answer Date Recorded Total Score - Questions 1-9 0 08/06 [facility] - Occupational Stress Questionnaire Answer Date Recorded Do you feel stress - tense, restless, nervous, or anxious, or unable to sleep at night because your mind is troubled all the time - these days? Patient declined 12/12/2024 Exercise Vital Sign Answer Date Recorde d On average, how many days pe r week do you engage in moderate to strenuous exercise (like a brisk walk)? 2 days 12/12/2024 On average, how many minutes do you engage in exercise at this level? 150+ min 12/12/2024 Hunger Vital Sign Answer Date Recorded Within the past 12 months, y ou worried that your food would run out before you got the money to buy more. Patient declined Within the past 12 months, t he food you bought just didn't last and you didn't have money to get more. Patient declined 05/2025 PRAPARE - Transportation Answer Date Re corded In the past 12 months, has l ack of transportation kept you from medical appointments or from getting medications? Patient declined 12/12/2024 In the past 12 months, has l ack of transportation kept you from meetings, work, or from getting things needed for daily living? Patient declined 12/12/2024 Housing Stability Vital Sign Answer Junior e Recorded In the last 12 months, was t here a time when you were not able to pay the mortgage or rent on time? Patient declined 12/13/19 25 In the past 12 months, how m any times have you moved where you were living? 0 12/12/2024 At any time in the past 12 m ont, were you homeless or living in a group home (including now)? Patient declined 12/12/2024 Education Answer Date Recorded What is the [...] on file documented as of this encounter Plan of Treatment Upcoming Encounters Date Type Department Care Team (Late st Contact Info) Description 01/07/2025 9:30 AM CDT Office Visit [facility] #2 [place] [address] Luzmaria Cates MD #2 [facility] [address] [place] [address] 01/11/2025 1:30 PM CDT [facility] 1 [place] [address] Suresh Wright MD #2 [facility] [address] [place] [address] Discharge Disposition: Discharged to home or Selfcare 01/14/2025 8:30 AM CDT Office Visit [facility] #2 [place] [address] Arthur King APRN, ADVERTISEMENT DISTRIBUTOR [address] [address] [address] documented as of this encounter Visit Diagnoses Not on filedocumented in this encounter Additional Health Concerns Assessment Noted Time PHQ-9 Depression Total Score: 0 08/28/20 8:02 AM BILINGUAL PATIENT SUPPORT CASEWORKER documented as of this encounter Care Teams Litigation Counsel Relationship Specialty Start Date End Date Arthur King, DIVIDEND CLERK, ADVERTISEMENT DISTRIBUTOR [address] [place] [address] [address] PCP - General Advanced Practice Nurse 12/24/22 Luzmaria Cates MD [address] [address] Consulting Physician Endocrinology 02/20/24 Henri West MD [address] [address] Consulting Physician General Surgery 07/20/24 Maura Lenz APRN, ADVERTISEMENT DISTRIBUTOR #2 [facility] [place] [address] Nurse Practitioner Advanced Practice Nurse 12/07/24 documented as of this encounter
--- OUTSIDE RECORDS SUMMARY | 2024-12-30 22:00 | XMS_ITS | Encounter Summary ---
Author Organization [facility] Address [address] [facility] [place] [address] Phone Care Team Providers Care Belt Operator Name Role Phone Arthur King APRN, TELECOMMUNICATIONS CABLE JOINTER Primary Care Pr ovider Luzmaria Cates MD Unavailable Henri West MD Unavailable [phone] Maura Lenz APRN, TELECOMMUNICATIONS CABLE JOINTER Unavailable [phone] Reason for Visit * Reason Comments Medication Refill Encounter Details Date Type Department Care Team (Late st Contact Info) Description 11/22/2023 Refill [facility] - [place] #2 [place] [address] Arthur King APRN, TELECOMMUNICATIONS CABLE JOINTER #[address] [address] Medication Refill Social History Tobacco Use Types Packs/Day Years Used Date Smoking Tobacco: Never Smokeless Tobacco: Never Alcohol Use Standard Drinks/Week Comments Not Currently 0 (1 standard drink = 0.6 oz pur e alcohol) PHQ-2 Answer Date Recorded Total Score - Questions 1-9 6 12/05 Education Answer Date Recorded What is the highest level of school you have completed or the highest degree you have received? Some college, no degree 02/23/2023 Comments No Sex and Gender Information Value Date Recorded Sex Assigned at Not on file Legal Sex Female 9:41 AM CDT Gender Identity Not on file Sexual Orientation Not on file documented as of this encounter Miscellaneous Notes * Telephone Encounter - Lyn Currie RN - 11/22/2023 12:23 PM CDT [facility] Medication Refill Standing Order for Pediatricand Adult Patients. Requested Prescriptions Pending Prescriptions Disp Refills Continuous Blood Gluc Sensor (Dexcom G6 Sensor) Misc [Pharmacy Med Name: DEXCOM G6 SENSOR] 3 Each 2 Sig: CHANGE SENSOR EVERY 10 DAYS Diabetic Supplies Protocol Passed - 11/22/2023 10:29 AM Passed - Visit with relevant provider in past 6 months Recent Visits Date Type Provider Dept 07/15/23 Office Visit Arthur King APRN, [facility] 06/07/23 Office Visit Arthur King APRN, [facility] Mario Showing recent visits within past 182 days and meeting all other requirements Future Appointments No visits were found meeting these conditions. Showing future appointments within next 90 days and meeting all other requirements documented in this encounter Plan of Treatment Upcoming Encounters Date Type Department Care Team (Late st Contact Info) Description 01/07/2025 9:30 AM CDT Office Visit [facility] Medical [facility] - Endocrinology [facility] #2 [place] [address] Luzmaria Cates MD #2 [facility] [address] [place] [address] 01/11/2025 1:30 PM CDT [facility] 1 [place] [address] Suresh Wright MD #2 [facility] [address] [place] [address] Discharge Disposition: Discharged to home or Selfcare 01/14/2025 8:30 AM CDT Office Visit [facility] Medical [facility] - Family Medicine [facility] #2 [place] [address] Arthur King APRN, TELECOMMUNICATIONS CABLE JOINTER #2 [place] [facility] [address] [place] [address] documented as of this encounter Visit Diagnoses Not on filedocumented in this encounter Additional Health Concerns Infection Onset Date Last Indicated Resolved Time Respiratory Rule-Out 12/13/2024 12/13/2024 025 10:07 AM CDT COVID - 19 12/13/2024 12/13/2024 12/13/2024 10:0 7 AM CDT Assessment Noted Time PHQ-9 Depression Total Score: 6 12/25/19 23 8:32 AM CDT documented as of this encounter Care Teams Belt Operator Relationship Specialty Start Date End Date Arthur King APRN, TELECOMMUNICATIONS CABLE JOINTER #[address] [place] [address] [address] PCP - General Advanced Practice Nurse 12/24/22 Luzmaria Cates MD #[address] [place] [address] [address] Consulting Physician Endocrinology 02/20/24 Henri West MD #[address] [address] [address] Consulting Physician General Surgery 07/20/24 Maura Lenz APRN, TELECOMMUNICATIONS CABLE JOINTER #2 [place] [address] Nurse Practitioner Advanced Practice Nurse 12/07/24 documented as of this encounter
--- OUTSIDE RECORDS SUMMARY | 2024-12-30 22:00 | XMS_ITS | Clinical Summary ---
Author Organization [facility] Address [address] [place] [address] Care Team Providers Care Construction Project Administrator Name Role Phone Unavailable Primary Care Provider Unavailabl e Social History Tobacco Use Types Packs/Day Years Used Date Smoking Tobacco: Never Assessed Comments Unknown Sex and Gender Information Value Date Recorded Sex Assigned at Not on file Legal Sex Female 6:59 PM CDT Gender Identity Not on file Sexual Orientation Not on file Plan of Treatment Health Maintenance Due Date Last Done Comments Cervical Cancer Screening Pa p Smear (Age 30 to 64) Every 3 Years 1993 Annual Physical 1996 Hepatitis C 2011 DTaP, Tdap and Td Vaccines ( 1 - Tdap) 2012 Hepatitis B Vaccines (1 of 3 - 19+ 3-dose series) 2012 Cervical Cancer Screening Pa p with HPV Testing (Age 30 to 64) Every 5 Years 2023 Cervical Cancer Screening with HPV 2023 COVID-19 Vaccine (2023-2 5 season) 2024 HPV Vaccines Aged Out No longer eligi ble based on patient's age to complete this topic Meningococcal B Vaccine Aged Out No l onger eligible based on patient's age to complete this topic Meningococcal Vaccine Aged Out No nila christy eligible based on patient's age to complete this topic Pneumococcal Vaccine: Pediat rics (0 to 5 Years) and At-Risk Patients (6 to 49 Years) Aged Out No longer eligible b ased on patient's age to complete this topic RSV Immunizations Under 20 Months Aged Out No longer eligible based on patient's age to complete this topic
--- OUTSIDE RECORDS SUMMARY | 2024-12-30 22:00 | XMS_ITS | Clinical Summary ---
Author Organization [facility] Address [address] [place] [address] Care Team Providers Care Backwinder Name Role Phone Cami Mata MD Primary Care Provider [phone] Source Comments [facility],non-owned Affiliates and Associated Physician Practices is amultiple site organization consisting of ambulatory clinics and hospital sitesin [place], [place], [place] and [place]. This disclosure is being madepursuant to the Care Everywhere program and may not contain all information available regarding this patient. Last updated 18.[facility] Allergies No known active allergies Medications * Be aware that medications may not be up to date on this document. Alwaysverify current medications with the patient. Vit-Fe Fumarate-FA ( VITAMIN) 28-0.8 MG tabletIndicati ons: Take 1 Tab by mouth once daily. Indications: Active ferrous sulfate 325 (65 FE) MG tablet Take 325 mg by mouth once daily. Active Cholecalcifero l (VITAMIN D) 1000 UNIT capsule Take 1,000 Units by mouth every 30 days. Times two more doses Active blood glucose (FREESTYLE INSULINX TEST) test strip 50 Strip 3 3 Active Lancets Fine 28G [facility] For glucose monitoring. 100 Each 3 3 Active insulin lispro (HUMALOG) injection Inject 0-100 Units subcutaneously 3 times daily before meals. Inject 0-1 mL subcutaneously 3 times daily before meals. .................. .................. ......... BREAKFAST, LUNCH AND DINNER SUPPLEMENTAL INSULIN: Give as AC supplement: ~ ~ ~ ~ ~ ~ ~ ~ ~ Finger Stick Blood Glucose Add 1 unit lispro for every 50 units above 130 130 to 180 give 1 extra unit 181 to 230 give 2 extra units 231-280 give 3 extra units And so on 1 Box 3 3 Active insulin lispro (HUMALOG) injectionIndic ations:Type 1 Diabetes Mellitus Inject 1 Units subcutaneously 3 times daily before meals. Inject 0.01 mL subcutaneously 3 times daily before meals. ............ Sub Q Orders Insulin / CHO Ratio ~ ~ ~ ~ ~ ~ ~ ~ ~ 1 unit for every 10 carbs for meals 1 unit for every 15 carbs for snacks Indications: Insulin-Dependent Diabetes Indications: Insulin-Dependent Diabetes 1 Box 3 3 Active glucagon (GLUCAGON EMERGENCY) injection Inject 1 time for hypoglycemia 1 mg 3 3 Active insulin detemir (LEVEMIR) injection Inject 4 units before breakfast and 6 units before bedtime. 10 mL 3 3 Active insulin syringe-needle (BD ULTRAFINE II) 31G X 5/16 0.5 ML syringe For insulin administration. 100 Syringe 3 3 Active blood glucose (FREESTYLE INSULINX TEST) test strip Use 1 Strip. 3 Box 6 3 Active insulin syringe-needle (B-D INSULIN SYRINGE) 31G X 5/16 0.3 ML syringe 1 Each by Injection route as directed. For insulin qAM/HS and with meals. Addiitonally with SSI 200 Each 6 3 Active insulin glargine (LANTUS SOLOSTAR PEN) INJ injection Take 6units in the morning and 4 units 12 hours later in the evening 2 Pen 5 3 Active Active Problems Patient Care Coordination No te Formatting of this note migh t be different from the original. Diabetic Please ask patient about genetic screening at 19wk visit Problem Noted Date Diagnosed Date Short interval between pregn ancies complicating , antepartum 02/20/2013 History of delivery, currently 02/20/2013 Hx of preeclampsia, prior , currently p regnant 02/20/2013 Teen 02/20/2013 Type 1 diabetes mellitus 02/20/2013 Overview (02/23/2013): Hgb A1c = 9 on 02/20/13 24hr urine 115mg on 02/21/13 Insulin regimen as of 02/23: carbs 1:12 for meals and snacks, additional 1 unit for every 50 over 130. Also Lantus 6 in AM, and 4 before bed Supervision of other high-risk 013 Overview (07/13/2015): Dating by L=6 week documented US (in media) Prenatals: O+/I/-/-, NR PLEASE ASK PATIENT ABOUT GENETIC SCREENING AT APPT AT 19WGA Family History Medical History Relation Name Comments Colon Cancer after age 50 or unknown Father dx'ed at 54 Diabetes Father Heart Disease Father Hypertension Father Diabetes Maternal Grandfather Hypertension Maternal Grandfather Diabetes Maternal Grandmother Hypertension Maternal Grandmother Hypertension Mother Diabetes Paternal Grandfather Diabetes Paternal Grandmother Hypertension Paternal Grandmother Relation Name Status Comments Brother Alive Father Alive Maternal Grandfather Maternal Grandmother Alive Mother Alive Paternal Grandfather Paternal Grandmother Alive Sister Alive Social History Tobacco Use Types Packs/Day Years Used Date Smoking Tobacco: Never Smokeless Tobacco: Never Alcohol Use Standard Drinks/Week Comments No 0 (1 standard drink = 0.6 oz pur e alcohol) Comments No Sex and Gender Information Value Date Recorded Sex Assigned at Not on file 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 Gender Identity Not on file Sexual Orientation Not on file Last Filed Vital Signs Vital Sign Reading Time Taken Comments Blood Pressure 128/83 05/01/2013 3:29 PM CDT Pulse 64 02/28/2013 2:00 PM CDT Temperature 36.9 C (98.5 F) 02/23/2013 8:50 AM CDT Respiratory Rate 18 02/28/2013 2:00 PM CDT Oxygen Saturation 99% 02/21/2013 7:20 AM CDT Inhaled Oxygen Concentration - - Weight 51.3 kg (113 lb 3.2 oz) 05/01/2013 3:29 P M CDT Height 162.6 cm (5' 4 ) 02/28/2013 2:00 PM CDT Body Mass Index 19.43 02/28/2013 2:00 PM CDT Plan of Treatment Health Maintenance Due Date Last Done Comments PAP SMEAR 1993 HIV SCREENING 2008 HEPATITIS C SCREENING 04/18/2011 DTAP/TDAP/TD VACCINES (1 - Tdap) 2012 HEPATITIS B VACCINE (1 of 3 - 19+ 3-dose series) 2012 PNEUMOCOCCAL VACCINE (1 of 2 - PCV) 2012 COVID-19 VACCINE (1 - 2023-2 5 season) 2024 DEPRESSION SCREENING 09/05/2024 INFLUENZA VACCINE (Season Ended) 2025 05/28/20 16 ZOSTER VACCINE (1 of 2) 2043 HIB VACCINE Aged Out No longer eligi ble based on patient's age to complete this topic HPV VACCINE Aged Out No longer eligi ble based on patient's age to complete this topic MENINGOCOCCAL (Group B) VACC INE SHARED DECISION-MAKING Aged Out No longer eligibl e based on patient's age to complete this topic MENINGOCOCCAL GROUPS A/C/Y/W VACCINE Aged Out No longer eligible b ased on patient's age to complete this topic Insurance [facility] MEDICAID - [place] [id number] Advance Directives * FULL RESUSCITATION (Latest Code Status on File) Date Activated Date Inactivated Comments 02/20/2013 8:29 PM 02/23/2013 3:32 PM Care Teams Backwinder Relationship Specialty Start Date End Date Cami Mata MD [address] [place] [phone] PCP - General 10/15/20
--- OUTSIDE RECORDS SUMMARY | 2024-12-30 22:00 | XMS_ITS | Referral Summary ---
Author Organization [facility] Address [address] [place] [address] Care Team Providers Care Supervisor Pipeline Maintenance Name Role Phone Arthur King NP Primary Care Provider Allergies Active Allergy Reactions Criticality Noted Date Comments Amoxicillin Hives,Rash Medium 03/20/2021 Clonazepam Unknown High 03/20/2021 Hydrocodone Headache Low 03/20/2021 Sumatriptan Unknown 09/13/2019 Varenicline Other (See comments) Low 03/20/2021 Zolpidem Unknown 09/13/2019 Medications pen needle, diabetic 32 gauge x 32 needle use with pen needles to inject insulin daily 7 Active glucagon (glucagon) 1 mg kit Use as directed for low blood sugar. 1 kit 3 0 Active acetaminophen-cod eine (TYLENOL with CODEINE #3) 300-30 mg per tablet 0 Active buPROPion XL (WELLBUTRIN XL) 150 mg 24 hr tablet Take 150 mg by mouth daily 1 Active OneTouch Verio test strips strip Use to check blood glucose 4 times day DX E10.65 150 each 11 1 Active escitalopram (LEXAPRO) 10 mg tablet Take 10 mg by mouth every morning 2 Active insulin glargine (insulin glargine) 100 unit/mL (3 mL) pen for injection Inject 15 Units under the skin daily 15 mL 6 2 Active OneTouch Delica Plus Lancet 30 gauge misc Use to monitor glucose levels DX E10.65 150 each 2 2 Active hydrOXYzine (ATARAX) 25 mg tablet TAKE 1 TABLET BY MOUTH THREE TIMES A DAY NEEDED FOR 30 DAYS 2 Active naproxen (NAPROSYN) 500 mg tablet TAKE 1 TABLET BY MOUTH TWICE A DAY WITH MEALS FOR 10 DAYS 2 Active nitrofurantoin monohydrate (MACROBID) 100 mg capsule TAKE 1 CAPSULE BY MOUTH 12 WITH MEALS FOR 5 DAYS 2 Active traZODone (DESYREL) 50 mg tablet TAKE 1 TABLET BY MOUTH EVERY DAY AT BEDTIME NEEDED FOR 30 DAYS 2 Active buPROPion SR (WELLBUTRIN SR) 150 mg 12 hr tablet TAKE 1 TABLET EVERYDAY FOR 3 DAYS THEN TAKE 1 TABLET TWICE A DAY FOR 30 DAYS 2 Active TRUEplus Pen Needle 31 gauge x 3/16 needle USE FOUR TIMES DAILY 2 Active glucagon 1 mg kitIndications:Ty pe 1 diabetes mellitus with hyperglycemia (HCC) Use as directed for low blood sugar. 1 kit 11 3 Active Dexcom G6 Transmitter deviceIndications :Type 1 diabetes mellitus with hyperglycemia (HCC) Dx: E10.65. Change transmitter every 90 days. 1 each 3 3 Active Omnipod 5 G6 Pods, Gen 5, cartridge CHANGE POD EVERY 3 DAYS 30 each 1 4 Active Dexcom G6 Sensor deviceIndications :Type 1 diabetes mellitus with hyperglycemia (HCC) CHANGE EVERY 10 DAYS 9 each 4 Active insulin aspart (NovoLOG) 100 unit/mL vial for injectionIndicati ons:Type 1 diabetes mellitus with hyperglycemia (HCC) INJECT UP TO 50 UNITS PER DAY VIA INSULIN PUMP 50 mL 3 4 Active insulin lispro (HumaLOG, ADMELOG) 100 unit/mL vial for injectionIndicati ons:Type 1 diabetes mellitus with hyperglycemia (HCC) INJECT UP TO 50 UNITS PER DAY VIA INSULIN PUMP 50 mL 2 4 Active Active Problems Problem Noted Date Diagnosed Date BMI 20.0-20.9, adult 10/14/2022 Assessment & Plan (10/14/2022 1:17 PM FACILITY OPERATIONS MANAGER): BMI is acceptable for this patient. Discussed healthy diet and importance of regular physical activity (20- 30min/day, 150min/wk). Physically active at work walking all day. Insulin pump in place 03/18/2022 Assessment & Plan (10/14/2022 1:18 PM FACILITY OPERATIONS MANAGER): Changed CF from 75 to 70. All other settings unchanged. Aware to send [employer] message if seeing patterns of uncontrolled BS. Assessment & Plan (03/18/2022 2:17 PM CDT): BR 0.5 CR 15 Continue same other settings for now. Migraine 09/13/2019 Depression 09/13/2019 Type 1 diabetes mellitus with hyperglycemia 10/07 Assessment & Plan (10/14/2022 1:19 PM FACILITY OPERATIONS MANAGER): Please call to set up diabetic eye exam. Changed CF from 75 to 70. All other settings unchanged. Aware to send [employer] message if seeing patterns of uncontrolled BS. To send update in 1-2 weeks. Current medications: Humalog via Omnipod 5 BR 0.5 CR 15 CF change to 70 Target 110 AIT 4 hrs Assessment & Plan (03/18/2022 3:56 PM CDT): Chronic problem, signficantly improving. Adjust settings per below based on glucose patterns. We reviewed activity mode when needed. Discussed her pump options. Depending on insurance she may have 30 day time frame to return t-slim. She will call [employer] to check on this. Recommend that she also get in touch with [employer] (I gave her the rep's information) and find out what her options are. Either way, recommend she stay on the pump as it has worked much better for her which she agrees with. Assessment & Plan (01/05/2022 4:36 PM CDT): Hba1c was Lab Results Component Value Date HGBA1C 10.9 01/05/2022 today, indicating very poor DM control Goal Hba1c and blood glucose explained Diet and exercise were advised Prevention and treatment of hyypoglcyemia were discussed with the patient Blood glucose monitoring : started on DEXCOM cgm Adjustment to medications: Check your sugar before meals and bedtime Take Lantus, 15 units at bedtime Take Admelog, 4 units before meals For sugars over 150, take 6 units For sugars over 200, take 8 units For sugars over 250, take 10 units For sugars over 300, take 12 units For sugars over 400, take 14 units At bedtime, for sugars under 120 , have Bedtime snack For sugars over 200 at bedtime, take 4 units of Admelog. Will start process for a insulin pump Previous section 11/01/2014 Trichomoniasis, unspecified 11/01/2014 Resolved Problems Problem Noted Date Diagnosed Date Resolved Date History of delivery 11/01/2014 05/06/2022 Hx of preeclampsia, prior pr egnancy, currently 02/20/2013 05/06/2022 Social History Tobacco Use Types Packs/Day Years Used Date Smoking Tobacco: Every Day E-cigarettes Smokeless Tobacco: Never Tobacco Cessation:Ready to Q uit: Not Asked; Counseling Given: Not Answered PHQ-2 Answer Date Recorded PHQ-2 Total Score (If total score is 3 or more points, staff should administer the PHQ-9) 2 01/05/2022 Personal Safety Answer Date Recorded Getting School Help Needed Not on file 09/20 Comments Unknown Sex and Gender Information Value Date Recorded Sex Assigned at Not on file Legal Sex Female 8:13 AM FACILITY OPERATIONS MANAGER Gender Identity Female 01/01/2022 10:11 AM CDT Sexual Orientation Straight 01/01/2022 10 :11 AM CDT Last Filed Vital Signs Vital Sign Reading Time Taken Comments Blood Pressure 102/72 10/14/2022 11:28 AM FACILITY OPERATIONS MANAGER Pulse 99 10/14/2022 11:28 AM FACILITY OPERATIONS MANAGER Temperature - - Respiratory Rate 16 10/14/2022 11:28 AM FACILITY OPERATIONS MANAGER Oxygen Saturation 100% 02/05/2010 6:50 AM CDT Inhaled Oxygen Concentration - - Weight 57 kg (125 lb 10.6 oz) 10/14/2022 11:28 A M FACILITY OPERATIONS MANAGER Height 167.6 cm (5' 5.98 ) 10/14/2022 11:[address] Body Mass Index 20.29 10/14/2022 11:28 AM FACILITY OPERATIONS MANAGER Plan of Treatment Not on file Procedures Procedure Name Priority Date/Time Associated Diagnosis Comments HM DIABETES EYE EXAM Routine 04/01/2023 7:29 AM CDT POCT HEMOGLOBIN A1C Routine 10/14/2022 1 1:39 AM FACILITY OPERATIONS MANAGER Type 1 diabetes mellitus with hyperglycemia (HCC) EGFR Routine 03/18/2022 2:40 PM CDT Type 1 diabetes mellitus with hyperglycemia (HCC) LIPID PANEL Routine 03/18/2022 2:40 PM CDT Type 1 diabetes mellitus with hyperglycemia (HCC) ALBUMIN CREATININE RATIO, URINE Routine 03/18/2022 2:40 PM CDT Type 1 diabetes mellitus with hyperglycemia (HCC) TSH Routine 03/18/2022 2:40 PM CDT Type 1 diabetes mellitus with hyperglycemia (HCC) from Last 3 Months or Most Recently Relevant to Health Maintenance Results * DIABETES EYE EXAM (04/01/2023 7:29 AM CDT) Historical Provider HEALTH MAINTENANCE Edited Result - Final * POCT hemoglobin A1c (10/14/2022 11:39 AM FACILITY OPERATIONS MANAGER) Hemoglobin A1C, POC 6.9 % Blood 10/14/2022 11:3 9 AM FACILITY OPERATIONS MANAGER Carly Murrieta NP POINT OF CARE TEST ORDERA BLES Final Result * eGFR (03/18/2022 2:40 PM CDT) eGFR 130 mL/min/1. 73 m2 [facility] Comment: Interpretive Data Reference Interval Normal >/= 90 mL/min/1.73m2 Mildly decreased* 60 - 89 mL/min/1.73m2 Mildly to moderately decreased 45 - 59 mL/min/1.73m2 Moderately to severely decreased 30 - 44 mL/min/1.73m2 Severely decreased 15 - 29 mL/min/1.73m2 Kidney Failure < 15 mL/min/1.73m2 *Relative to young adult level Estimated glomerular filtration rate is determined by the 2020 CKD-EPI equation recommended by the National Kidney Foundation (A Unifying Approach to GFR Estimation: Recommendations of the NKF-ASK Task Force on Reassessing the Inclusion of Race in Diagnosing Kidney Disease, JASN 2020). The CKD-EPI equation should not be used for patients with unstable renal function and has not been validated in children and those over 70. Current interpretive data was last reviewed 2021. Blood 03/18/2022 2:40 PM CDT 03/18/2022 5:39 PM CDT Result [facility] Alison MIRELES LAB BLOOD ORDERABLES Fi nal Result Performing Organization Address [facility] de Phone Number [facility] [phone] [address] [facility] [place] [address] * Albumin Creatinine Ratio, Urine (03/18/2022 2:40 PM CDT) Albumin Ur 21.7 mg/L [facility] Comment: Interpretive Data No reference range established. Current interpretive data was last revised 2019. Creatinine Ur 232.0 mg/dL [facility] Comment: Interpretive Data No reference range established. Current interpretive data was last revised 2019. Albumin Creatinine Ratio, Ur 9 1 - 29 mg/g [facility] Urine 03/18/2022 2:40 PM CDT 03/18/2022 5:37 PM CDT Result [facility] Al[facility] MIRELES LAB URINE ORDERABLES Fi nal Result Performing Organization Address [facility] Co de Phone Number [facility] [id number] [address] [facility] [place] [address] * TSH (03/18/2022 2:40 PM CDT) Thyroid Stimulating Hormone 0.70 0.30 - 4.20 mcIUnit/mL PHIL Blood 03/18/2022 2:40 PM CDT 03/18/2022 5:37 PM CDT Result [facility] Alison MIRELES LAB BLOOD ORDERABLES Fi nal Result PHIL [id number] [address] Department of Laboratories [place] [phone] * Lipid panel (03/18/2022 2:40 PM CDT) Cholesterol 153 30 - 199 mg/dL [facility] Comment: Interpretive Data Ages < or = 19 years Acceptable: <170 mg/dL Borderline high: 170-199 mg/dL High: >or= 200 mg/dL Ages > or = 20 years Desirable: <200 mg/dL Borderline high: 200-239 mg/dL High: >or= 240 mg/dL Literature References: 1. Expert Panel on Integrated Guidelines for Cardiovascular Health and Risk Reduction in Children and Adolescents. Pediatrics 2011;128:S213 2. NCEP Expert Panel. Circulation 2004;110:227 Current Interpretive Data was last revised on 2018. Triglycerides 51 <=149 mg/dL [facility] Comment: Interpretive Data Ages < or = 9 years Acceptable: <75 mg/dL Borderline high: 75-99 mg/dL High: >or= 100 mg/dL Ages 10 to 20 years Acceptable: <90 mg/dL Borderline high: 90-129 mg/dL High: >or= 130 mg/dL Ages > or = 20 years Desirable: <150 mg/dL Borderline high: 150-199 mg/dL High: 200-499 mg/dL Very high: >or= 499 mg/dL Literature References: 1. Expert Panel on Integrated Guidelines for Cardiovascular Health and Risk Reduction in Children and Adolescents. Pediatrics 2011;128:S213 2. NCEP Expert Panel. Circulation 2004;110:227 Current Interpretive Data was last revised on 2018. HDL 52 >=40 mg/dL [facility] Comment: Interpretive Data Ages < or = 19 years Acceptable: >45 mg/dL Borderline low: 40-45 mg/dL Low: <40 mg/dL Ages > or = 20 years Desirable: >or= 60 mg/dL Low: <40 mg/dL Literature References: 1. Expert Panel on Integrated Guidelines for Cardiovascular Health and Risk Reduction in Children and Adolescents. Pediatrics 2011;128:S213 2. NCEP Expert Panel. Circulation 2004;110:227 Current Interpretive Data was last revised on 2018. LDL, calculated 91 <=129 mg/dL [facility] Comment: Interpretive Data Ages < or = 19 years Acceptable: <110 mg/dL Borderline high: 110-129 mg/dL High: >or= 130 mg/dL Ages > or = 20 years Optimal: <100 mg/dL Near optimal: 100-129 mg/dL Borderline high: 130-159 mg/dL High: >160 mg/dL Literature References: 1. Expert Panel on Integrated Guidelines for Cardiovascular Health and Risk Reduction in Children and Adolescents. Pediatrics 2011;128:S213 2. NCEP Expert Panel. Circulation 2004;110:227 Current Interpretive Data was last revised on 2018. Non-HDL Cholesterol 101 mg/dL [facility] Comment: Interpretive Data Ages < or = 19 years Acceptable: <120 mg/dL Borderline high: 120-144 mg/dL High: >145 mg/dL Ages > or = 20 years When triglycerides are >200 mg/dL, Non-HDL cholesterol is a secondary target of therapy with treatment goals that are 30 mg/dL greater than the LDL cholesterol target. Literature References: 1. Expert Panel on Integrated Guidelines for Cardiovascular Health and Risk Reduction in Children and Adolescents. Pediatrics 2011;128:S213 2. NCEP Expert Panel. Circulation 2004;110:227 Current Interpretive Data was last revised on 2018. Chol/HDL ratio 3 [facility] Blood 03/18/2022 2:40 PM CDT 03/18/2022 5:37 PM CDT Narrative PH[facility] - 03/18/2022 6:14 PM CDT These lab test should be done fasting. This means do not eat or drink for at least 12 hours prior to getting your blood drawn. Alison [facility] LAB BLOOD ORDERABLES Fi nal Result PHIL [id number] [address] Department [place] [address] from Last 3 Months or Most Recently Relevant to Health Maintenance Insurance [facility] Care Teams Supervisor Pipeline Maintenance Relationship Specialty Start Date End Date Arthur King NP [address] [address] PCP - General Nurse Practitioner 02/09/24
--- OUTSIDE RECORDS SUMMARY | 2024-12-30 22:00 | XMS_ITS | Encounter Summary ---
Author Organization [facility] Address [address] [place] [address] Phone Care Team Providers Care Load Tallier Name Role Phone Arthur King APRN, GLASSBLOWER Primary Care Pr ovider Luzmaria Cates MD Unavailable Henri West MD Unavailable [phone] Maura Lenz APRN, GLASSBLOWER Unavailable [phone] Encounter Details Date Type Department Care Team (Late st Contact Info) Description 11/17/2024 Results Follow-Up [facility] - Family Medicine - [place] [address] [facility] [place] [address] Suresh Wright MD #[address] [address] XR HAND 3 OR MORE VIEWS RIGHT Social History Tobacco Use Types Packs/Day Years Used Date Smoking Tobacco: Never Smokeless Tobacco: Never Comments:Former cigarette us e; stopped about 07/2023 Currently uses vape Alcohol Use Standard Drinks/Week Comments Not Currently 0 (1 standard drink = 0.6 oz pur e alcohol) [facility] Utilities Answer Date Recorded In the past 12 months has e eelusion, gas, oil, or water eDabba threatened to shut off services in your [...] 11/13/2024 How often do you attend chur ch or moravian services? Patient declined 11/13/2024 Do you belong to any clubs o r organizations such as adventist groups, unions, fraternal or athletic groups, or [...] Total Score - Questions 1-9 0 08/06 [facility] - Occupational Stress [...] were you homeless or living in a correction (including now)? Patient declined 11/13/2024 Education Answer [...] Description 01/07/2025 9:30 AM CDT Office Visit [facility] - Endocrinology [facility] [address] [place] [address] Luzmaria Cates MD #2 [facility] [address] [place] [address] 01/11/2025 1:30 PM CDT [facility] [address] [place] [address] Suresh Wright MD [address]2 [facility] [address] [place] [address] Discharge Disposition: Discharged to home or Selfcare 01/14/2025 8:30 AM CDT Office Visit [facility] - Family Medicine [facility] [address] [place] [address] Arthur King APRN, GLASSBLOWER [address] [address] [address] documented as of this encounter Visit Diagnoses Not on filedocumented in this encounter Additional Health Concerns Infection Onset Date Last Indicated Resolved Time Respiratory Rule-Out 12/13/2024 12/13/2024 025 10:07 AM CDT COVID - 19 12/13/2024 12/13/2024 12/13/2024 10:0 7 AM CDT Assessment Noted Time PHQ-9 Depression Total Score: 0 08/28/20 8:02 AM 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
--- OUTSIDE RECORDS SUMMARY | 2024-12-30 22:00 | XMS_ITS | Clinical Summary ---
Author Organization [facility] Address [address] [place] [address] Phone Care Team Providers Care Web Production Artist Name Role Phone Arthur King SCOWMAN, SEASONAL DELIVERY DRIVER Primary Care Pr ovider Luzmaria Cates MD Unavailable Henri West MD Unavailable Maura Lenz APRN, SEASONAL DELIVERY DRIVER Unavailable [phone] Allergies Active Allergy Reactions Criticality Noted Date Comments Amoxicillin Rash 12/24/2022 Buspirone Rash High 07/31/2024 Clonazepam Other (see Comments) 02/23/2023 Mood swings Penicillins Rash 12/24/2022 Triptans Itching 12/24/2022 Medications Blood Glucose Monitoring Suppl DeviceIndications :Type 1 diabetes mellitus with hyperglycemia (HCC) Diagnosis: Diabetes type 1 Blood testing frequency: 4-5 times a day E10.65. 1 Each 02/01/20 24 Active Glucose Blood StripIndications: Type 1 diabetes mellitus with hyperglycemia (HCC) Use to test blood glucose 4-5 times daily. E10.65. 200 Strip 02/01/20 24 Active Lancets MiscIndications:T ype 1 diabetes mellitus with hyperglycemia (HCC) Use to test blood glucose 4-5 times daily. E10.65. 200 Lancet 02/01/20 24 Active Alcohol Swabs (Alcohol Prep Pads) 70 % PadsIndications:T ype 1 diabetes mellitus with hyperglycemia (HCC) Use to test blood glucose 4-5 times daily. E10.65. 200 Each 02/01/20 24 Active Insulin Syringe-Needle U-100 (INSULIN SYRINGE .5CC/31GX5/16 ) 31G X 5/16 0.5 ML MiscIndications:T ype 1 diabetes mellitus with hyperglycemia (HCC) Use four times a day. E10.59. 100 Each 2 02/02/20 24 Active insulin lispro (Admelog) 100 UNIT/ML Solution Per insulin pump setting, up to 30 units per day 30 mL 1 02/22/20 24 Active Insulin Pen Needle (BD Pen Needle Cuca U/F) 32G X 4 MM Misc daily 100 Each 1 02/22/20 24 Active Continuous Glucose Transmitter (Dexcom G6 Transmitter) Misc Change transmitter every 90 days 1 Each 3 04/30/20 24 Active Insulin Disposable Pump (Omnipod 5 [id number] Pods Gen 5) Misc CHANGE POD EVERY 3 DAYS 30 Each 1 08/17/20 24 Active risperiDONE (RISPERDAL) 0.5 MG Tablet Take 1 Tablet by mouth 2 times daily. 60 Tablet 1 10/29/19 25 Active hydrOXYzine (ATARAX) 25 MG Tablet Take 25 mg by mouth every 6 hours as needed. Active Continuous Glucose Sensor (Dexcom G6 Sensor) Misc CHANGE SENSOR EVERY 10 DAYS 9 Each 1 11/22/19 25 Active Nutritional Supplements (Glucerna Shake) LiquidIndications :Protein-calorie malnutrition, unspecified severity (HCC) Vanilla Glucerna Protein Smart, 1 shake TID for malnutrition 85369 mL 5 11/22/19 25 Active Continuous Glucose Sensor (Dexcom G6 Sensor) MiscIndications:T ype 1 diabetes mellitus with hyperglycemia (HCC) Change sensor every 10 days. 9 Each 1 11/22/19 25 Active Ostomy Supplies (Skin Tac Adhesive Barrier Wipe) Misc 1 Each by Does not apply route as needed for Other (use as needed prior to applying Dexcom sensor). 50 Each 3 11/24/19 25 Active methocarbamol (ROBAXIN) 500 MG Tablet Take 1 Tablet by mouth 3 times daily as needed (muscle pain/tightness). 30 Tablet 1 12/14/19 25 Active venlafaxine (EFFEXOR-XR) 150 MG CAPSULE SR 24 HRIndications:Bip olar disorder, in partial remission, most recent episode depressed (HCC) Take 1 Capsule by mouth daily. 90 Capsule 3 11/15/19 25 025 Discontin ued(Med List Clean Up) Active Problems Problem Noted Date Diagnosed Date Mood disorder 11/14/2024 Hypotension 11/14/2024 Night sweats 11/14/2024 History of bipolar disorder 11/14/2024 Right hand pain 11/14/2024 Abnormal mammogram 06/28/2024 Noncompliance 05/17/2024 Gastroesophageal reflux disease 05/17/2024 Mass of left breast 05/17/2024 Anxiety 05/17/2024 Elevated LFTs 04/11/2024 Elevated hemoglobin A1c 02/06/2024 Weight loss 02/06/2024 Gross hematuria 02/06/2024 Type 1 diabetes mellitus 12/24/2022 Migraine 12/24/2022 PTSD (post-traumatic stress disorder) 12/24/2022 Bipolar disorder 12/24/2022 Encounters Date Type Department Care Team Description 12/21/2024 Results [place] [facility] [place] [address] Arthur King APRN, SHINE XR CHEST 2 VIEWS 12/20/2024 8:56 AM CDT - 12/20/2024 11:59 PM CDT [facility] [address] [place] [address] Suresh [place] MD Discharge Disposition: Discharged to home or Selfcare 12/19/2024 2:10 PM CDT - 12/19/2024 11:59 PM CDT Hospital Encounter [facility] [address] [place] [address] Arthur King APRN, SHINE Discharge Disposition: Discharged to home or Selfcare 12/19/2024 Travel 12/18/2024 Travel 12/13/2024 10:00 AM CDT Office Visit [facility] [place] [address] Arthur King APRN, SHINE Viral bronchitis (Primary Dx); Myalgia Discharge Disposition: Discharged to home or Selfcare 12/12/2024 Travel 11/25/2024 [facility] [place] [phone] Arthur King APRN, SHINE Medication Refill 11/23/[facility] [place] [place] [phone] Luzmaria Cates MD 11/21/2024 [facility] [place] [phone] Arthur King APRN, SHINE Need Order (/) 11/20/2024 MyChart RX Renewal [facility] [address] [facility] [place] [phone] Luzmaria Cates MD Medication Renewal Request 11/20/2024 MyChart [facility] [place] [phone] Arthur King APRN, SHINE Medication Renewal Declined 11/20/20[facility] [place] [phone] Luzmaria Cates MD Medication Refill 11/19/2024 Telephone [facility] [place] [phone] Arthur King APRN, SEASONAL DELIVERY DRIVER Prior Authorization 11/18/2024 Results Follow-Up [facility] [place] [phone] Suresh [place] MD THYROID STIMULATING HORMONE (TSH), THYROXINE (T4) FREE, CMP (COMPREHENSIVE METABOLIC PANEL), Additional followed-up results: 2 11/17/2024 Results Follow-Up [facility] [place] [address] Suresh [place] MD XR HAND 3 OR MORE VIEWS RIGHT 11/16/2024 Results Follow-Up [facility] [address] [place] [address] Suresh [place] MD EKG 12 LEAD 11/16/2024 Transcribe Orders [facility] [address] [place] [address] Suresh [place] MD Abnormal mammogram (Primary Dx) 11/15/2024 9:31 AM CDT - 11/15/2024 11:59 PM CDT Hospital Encounter [facility] [address] [place] [address] Suresh [place] MD Discharge Disposition: Discharged to home or Selfcare 11/15/2024 9:20 AM CDT - 11/15/2024 9:30 AM CDT Hospital Encounter [facility] [address] [place] [address] Suresh [place] MD Discharge Disposition: Discharged to home or Selfcare 11/15/2024 Travel 11/14/2024 1:45 PM CDT Office Visit [facility] [place] [address] Suresh [place] MD Mood disorder (HCC) (Primary Dx); Right hand pain; PTSD (post-traumatic stress disorder); History of bipolar disorder; Well woman exam; Night sweats; Elevated LFTs; Bradycardia; Hypotension, unspecified hypotension type; Bipolar disorder, in partial remission, most recent episode depressed (HCC) Discharge Disposition: Discharged to home or Selfcare 11/13/2024 Travel 10/15/2024 8:30 AM HYDROLOGICAL TECHNICAL OFFICER Office Visit [facility] [place] [phone] Arthur King APRN, SHINE Bipolar disorder, in partial remission, most recent episode depressed (HCC) (Primary Dx); Difficulty controlling anger Discharge Disposition: Discharged to home or Selfcare 10/15/2024 Travel 10/13/2024 Travel 10/10/2024 10:15 AM HYDROLOGICAL TECHNICAL OFFICER Office Visit [facility] [address] [place] [phone] Luzmaria Cates MD Type 1 diabetes mellitus with hyperglycemia (HCC) (Primary Dx); Insulin pump titration; Hypoglycemia Discharge Disposition: Discharged to home or Selfcare 10/10/2024 Travel 10/03/2024 Travel from Last 3 Months Immunizations Immunization Administration Dates Next Due Covid-19, Mrna, Lnp-s, Pf, 3 0 Mcg/0.3 Ml Dose ([place]) 01/23/2021,01/02/2021 DTAP VACCINE, 5 PERTUSSIS AN TIGENS, VACCINE IM 06/23/1997,1993,1993 HIB Vaccine (PRP-T) 1993,1993,1992 Hepatitis A Vaccine, Pediatr ic/adolescent, 2 Dose Schedule 05/01/2007 Hepatitis B Vaccine, Pediatric/adolescent 1992,1993 Human Papillomavirus Vaccine (HPV), quadrivalent 11/13/2007,07/10/2007,05/01/2007 Inactivated Polio Vaccine 1993,1993 Influenza, Injectable, Quadrivalent 05/28/2016 Meningococcal Vaccine 05/01/2007 TDAP Vaccine 03/27/2015 Td Vaccine (preservative free) 05/20/2003 Family History Medical History Relation Name Comments No Known Problems Brother 1 No Known Problems Brother 2 No Known Problems Daughter 1 No Known Problems Daughter 2 No Known Problems Daughter 3 Cancer Father Steve Colon Cancer Father Steve Diabetes Father Steve Heart Attack Father Steve No Known Problems Maternal Grandfather Hypertension Maternal Grandmother Heart Disease Mother Enlarged heart Hypertension Mother No Known Problems Paternal Grandfather No Known Problems Paternal Grandmother No Known Problems Sister Relation Name Status Comments Brother 1 Alive Brother 2 Alive Daughter 1 Alive Daughter 2 Alive Daughter 3 Alive Father Steve Alive Maternal Grandfather Maternal Grandmother Alive Mother Alive Paternal Grandfather Paternal Grandmother Alive Sister Alive Social History Tobacco Use Types Packs/Day Years Used Date Smoking Tobacco: Never Smokeless Tobacco: Never Tobacco Cessation:Counseling Given: Yes Comments:Former cigarette use; stopped about 07/2023 Currently uses vape Alcohol Use Standard Drinks/Week Comments Not Currently 0 (1 standard drink = 0.6 oz pur e alcohol) [facility] Utilities Answer Date Recorded In the past 12 months has e Fangdd, gas, oil, or water piSociety threatened to shut off services in your home? Patient declined 12/12/2024 Social Connection and Isolation Panel [NHANES] A nswer Date Recorded In a typical week, how many times do you talk on the phone with family, friends, or neighbors? Patient declined 12/12/2024 How often do you get togethe r with friends or relatives? Patient declined 12/12/2024 How often do you attend confucianist or holiness serv ices? Patient declined 12/12/2024 Do you belong to any clubs o r organizations such as confucianist groups, unions, fraternal or athletic groups, or [...] Questions 1-9 0 08/06 [facility] - [facility]ational Stress Questionnaire Answer Date Recorded [...] any time in the past 12 m [facility], were you homeless or living in a snf (including now)? Patient declined 12/12/2024 Education Answer [...] Sign Reading Time Taken Comments Blood Pressure 90/60 12/13/2024 9:46 AM CDT Pulse 100 12/13/2024 9:46 AM CDT Temperature 36.7 C (98 F) 12/13/2024 9:46 AM CDT Respiratory Rate 16 12/13/2024 9:46 AM CDT Oxygen Saturation 99% 12/13/2024 9:46 AM CDT Inhaled Oxygen Concentration - - Weight 49 kg (108 lb) 12/13/2024 9:46 AM CDT Height 162.6 cm (5' 4 ) 12/13/2024 9:46 AM CDT Body Mass Index 18.54 12/13/2024 9:46 AM CDT Plan of Treatment Upcoming Encounters Date Type Department Care Team (Late st Contact Info) Description 01/07/2025 9:30 AM CDT Office Visit [facility] - Endocrinology [facility] [address] [place] [address] Luzmaria Cates MD #[address] [address] 01/11/2025 1:30 PM CDT [facility] [address] [place] [address] Suresh [place] MD #[address] [address] Discharge Disposition: Discharged to home or Selfcare 01/14/2025 8:30 AM CDT Office Visit [facility] - Family Medicine [facility] [address] [place] [address] Arthur King APRN, SEASONAL DELIVERY DRIVER #[address] [address] Health Maintenance Due Date Last Done Comments Diabetes: Foot Exam 1993 Hepatitis C Virus (HCV) Screening 1993 Hepatitis B Immunization (3 of 3 - 3-dose series) 1993 1993, 1993 Pneumococcal Immunization Combined (1 of 2 - PCV) 2012 Pap Smear 2014 Cervical Cancer Screening (CCS) 2023 HPV/Cotest 2023 Diabetes: Eye Exam 04/18/2024 04/18/2023 SARS-COV-2 Immunization ( season) 2024 01/23/2021, 01/02/2021 DTaP/Tdap/Td Immunization (6 - Td or Tdap) 03/27/2025 03/27/2015, 05/20/2003, 06/23/1997, Additional history exists Diabetes: Hemoglobin A1c 04/09/2025 025, 02/07/2024, 10/14/2022 Influenza Immunization (Season Ended) 2025 05/28/2016 Diabetes: Nephropathy Screening 11/15/2025 11/15/2024, 02/07/2024, 07/13/2023, Additional history exists Respiratory Syncytial Virus (RSV) Immunization (Adult) (1 - 1-dose 75+ series) 2068 Meningococcal Immunization (ACWY) Aged Out 05/01/2007 No longer eligible based on patient's age to complete this topic Rotavirus Immunization Aged Out No lo nger eligible based on patient's age to complete this topic Procedures Procedure Name Priority Date/Time Associated Diagnosis Comments ADULT TRANS THORACIC ECHO 2D COMPLETE Routine 12/20/2024 9:33 AM CDT Hypotension, unspecified hypotension type XR CHEST 2 VIEWS Stat with Interpretation 12/19/2024 2:27 PM CDT Cough in adult POC SARS-COV-2 BY MOLECULAR Routine 12/13/2024 10:07 AM CDT Viral bronchitis POC INFLUENZA A AND B BY MOLECULAR Routine 12/13/2024 10:07 AM CDT Viral bronchitis XR HAND 3 OR MORE VIEWS RIGHT Today 11/15/2024 9:41 AM CDT Right hand pain EKG 12 LEAD Routine 11/15/2024 9:26 AM CDT Hypotension, unspecified hypotension type CBC WITH AUTO DIFFERENTIAL Today 11/15/2024 9:21 AM CDT Night sweats CMP (COMPREHENSIVE METABOLIC PANEL) Today 11/15/2024 9:21 AM CDT Elevated LFTs COMPLETE BLOOD COUNT (CBC) WITH DIFF Today 11/15/2024 9:21 AM CDT Night sweats THYROXINE (T4) FREE Today 11/15/2024 9:21 AM CDT Night sweats THYROID STIMULATING HORMONE (TSH) Today 11/15/2024 9:21 AM CDT Night sweats POCT GLYCOSYLATED HEMOGLOBIN Routine 10/10/2024 10:02 AM HYDROLOGICAL TECHNICAL OFFICER Type 1 diabetes mellitus with hyperglycemia (HCC) HM DILATED EYE EXAM 04/18/2023 12:00 AM CDT from Last 3 Months or Most Recently Relevant to Health Maintenance Results * ADULT TRANS THORACIC ECHO 2D COMPLETE (12/20/2024 9:33 AM CDT) AV Peak Grad mmHg 3.79 mmHg RESULTING AGENCY Mean Aortic Valve Gradient (MAVG) 2 mmHg RESULTING AGENCY LV end jayla diam cm 4.4 cm RESULTING AGENCY LV end sys diam cm 3.2 cm RESULTING AGENCY Aortic Root Diam cm 2.3 cm RESULTING AGENCY LA vol index ml/m2 20 ml/m2 RESULTING AGENCY LVOT Peak Javier m/sec [id number] m/sec RESULTING AGENCY AV Peak Javier m/sec [id number] m/sec RESULTING AGENCY MV Mean Grad mmHg 1 mmHg RESULTING AGENCY MVA by PHT cm2 4.15 cm2 RESUL TING AGENCY E/A Ratio 1.71 RESULTING AGENCY TR Javier m/sec 1.76 m/sec RESULTI NG AGENCY E/E' 4 RESULTING AGENCY AV Area (VTI) cm2 2.29 cm2 RESULTING AGENCY SEPTUM DIASTOLIC CM 0.6 cm RESULTING AGENCY PW DIASTOLIC CM 0.8 cm RESULTING AGENCY LA VOLUME 30.8 ml RESULTING AGENCY LV EF(estimated)% 53 RESULTING AGENCY Anatomical Region Laterality Modality CARDIO N/A Ultrasound Narrative 12/20/2024 10:38 PM CDT Transthoracic Echocardiography Report (TTE) Patient name PEE VIRK Janneth Rojas 1995 Patient ID (UPI) [id number] Indications: Hypotension. Study Date12/20/2024 Technical quality: Good visualization Type of Study: TTE procedure: Adult Trans Thoracic Echo 2D Complete. Priority:RoutineHR: 72 bpmBP: 104/70 mmHg Conclusions Summary The left ventricle is normal in size. Wall thickness is normal. LV function is normal. There are no regional wall motion abnormalities. LV EF of 50-55% Normal LV diastolic function. Findings Mitral Valve The mitral valve is normal. There is no evidence of mitral stenosis. There is no significant mitral regurgitation. Aortic Valve The aortic valve is trileaflet with normal leaflet excursion. There is no evidence of aortic valve stenosis. There is no significant aortic valve insufficiency. Tricuspid Valve The tricuspid valve is normal. There is no evidence of tricuspid stenosis. Trace tricuspid valve regurgitation. Insufficient TR jet to estimate PASP. Pulmonic Valve The pulmonic valve structure appears normal. There is no evidence of pulmonic stenosis. There is no significant pulmonic valve regurgitation. Left Atrium The left atrium size is normal. Left Ventricle The left ventricle is normal in size. Wall thickness is normal. LV function is normal. There are no regional wall motion abnormalities. LV EF of 50-55% Normal LV diastolic function. Right Atrium The right atrium size is normal. Right Ventricle Normal right ventricular cavity size and normal systolic function. Pericardial Effusion The pericardium is normal. There is no pericardial effusion visualized. Miscellaneous Aortic root and proximal ascending aorta are normal in size. Atrial septum appears intact. IVC is normal in size and respiratory response. Aortic arch appears normal. Valves Mitral Valve Area (PHT): 4.15 cm^2 Area (continuity): 2.46 cm^2 Peak E-Wave: 0.64 m/s Mean Velocity: 0.44 m/s Peak A-Wave: 0.37 m/s Mean Gradient: 1 mmHg Peak Gradient: 1.65 mmHg Deceleration Time: 181 msec P1/2t: 53 msec Tissue Doppler E' Velocity: 0.08 m/s E/E':4 E/A Ratio: 1.71 E/Lat E': 4 E/Med E':8 Aortic Valve Area (continuity): 2.29 cm^2 Mean Velocity: 0.72 m/s Area (VTI):2.28 cm^2 Mean Gradient: 2 mmHg Peak Velocity: 0.97 m/s AV VTI: 20 cm Peak Gradient: 3.79 mmHg Tricuspid Valve Peak E-Wave: 0.51 m/s Peak Gradient: 1.04 mmHg TR Velocity: 1.76 m/s TR Gradient: 12.39 mmHg Pulmonic Valve Peak Velocity: 0.89 m/s Mean Velocity: 0.65 m/s Peak Gradient: 3.2 mmHg Mean Gradient: 2 mmHg LVOT Peak Velocity: 0.80 m/s Mean Velocity: 0.58 m/s Peak Gradient: 3 mmHg Mean Gradient: 2 mmHg LVOT Diameter: 1.9 cm LVOT VTI: 16.1 cm Stroke Volume: 46 ml Stroke Volume Index: 30.46 ml/m^2 Structures Left Ventricle Diastolic Dimension: 4.4 cm Systolic Dimension: 3.2 cm Septum Diastolic: 0.6 cm Septum Systolic: 0.9 cm PW Diastolic: 0.8 cm PW Systolic: 1 cm Diastolic Length: 22.7 cm Systolic Length: 14.5 cm EF Calculated: 52.82% CI: 2.17 l/min*m^2 CO: 3.28 l/min RWT: 0.36 LV EDV: 53.2 ml FS: 27.27 % LV EDV Index: 35 m^2 LV Length: 6.96 cm LV ESV: 25.1 ml LVOT Diameter: 1.9 cm LV ESV Index: 17 m^2 Right Ventricle RVOT (PLAX) diameter:2.6 cm Tissue Doppler RV S': 10 TAPSE: 1.51 cm Left Atrium LA Systolic Pressure: 7.02 mmHg LA Area: 11.6 cm^2 LA Volume: 30.8 ml LA Index: 20ml/m^2 Right Atrium RA Area: 10.6 cm^2 Great Vessels Aorta Ascending Aorta: 2.4 cm Aorta Root:2.3 cm Ascending Aorta Index:1.59 cm/m^2 Demographics Age 29 Gender Female Race Height 64.02 in. Weight 108.01 lbs. BMI (BSA) 18.53 kg/m^2 (1.51 m^2) Glass Sagger Brandy Covarrubias Interpreting Mario Reyes Physician Valente Physician Procedure Note Valente Martin MD - 12/20/2024 Transthoracic Echocardiography Report (TTE) Patient name PEE Lagunas Crystal 1995 Patient ID (UPI) [id number] Indications: Hypotension. Study Date12/20/2024 Technical quality: Good visualization Type of Study: TTE procedure: Adult Trans Thoracic Echo 2D Complete. Priority:RoutineHR: 72 bpmBP: 104/70 mmHg Conclusions Summary The left ventricle is normal in size. Wall thickness is normal. LV function is normal. There are no regional wall motion abnormalities. LV EF of 50-55% Normal LV diastolic function. Findings Mitral Valve The mitral valve is normal. There is no evidence of mitral stenosis. There is no significant mitral regurgitation. Aortic Valve The aortic valve is trileaflet with normal leaflet excursion. There is no evidence of aortic valve stenosis. There is no significant aortic valve insufficiency. Tricuspid Valve The tricuspid valve is normal. There is no evidence of tricuspid stenosis. Trace tricuspid valve regurgitation. Insufficient TR jet to estimate PASP. Pulmonic Valve The pulmonic valve structure appears normal. There is no evidence of pulmonic stenosis. There is no significant pulmonic valve regurgitation. Left Atrium The left atrium size is normal. Left Ventricle The left ventricle is normal in size. Wall thickness is normal. LV function is normal. There are no regional wall motion abnormalities. LV EF of 50-55% Normal LV diastolic function. Right Atrium The right atrium size is normal. Right Ventricle Normal right ventricular cavity size and normal systolic function. Pericardial Effusion The pericardium is normal. There is no pericardial effusion visualized. Miscellaneous Aortic root and proximal ascending aorta are normal in size. Atrial septum appears intact. IVC is normal in size and respiratory response. Aortic arch appears normal. Valves Mitral Valve Area (PHT): 4.15 cm^2 Area (continuity): 2.46 cm^2 Peak E-Wave: 0.64 m/s Mean Velocity: 0.44 m/s Peak A-Wave: 0.37 m/s Mean Gradient: 1 mmHg Peak Gradient: 1.65 mmHg Deceleration Time: 181 msec P1/2t: 53 msec Tissue Doppler E' Velocity: 0.08 m/s E/E':4 E/A Ratio: 1.71 E/Lat E': 4 E/Med E':8 Aortic Valve Area (continuity): 2.29 cm^2 Mean Velocity: 0.72 m/s Area (VTI):2.28 cm^2 Mean Gradient: 2 mmHg Peak Velocity: 0.97 m/s AV VTI: 20 cm Peak Gradient: 3.79 mmHg Tricuspid Valve Peak E-Wave: 0.51 m/s Peak Gradient: 1.04 mmHg TR Velocity: 1.76 m/s TR Gradient: 12.39 mmHg Pulmonic Valve Peak Velocity: 0.89 m/s Mean Velocity: 0.65 m/s Peak Gradient: 3.2 mmHg Mean Gradient: 2 mmHg LVOT Peak Velocity: 0.80 m/s Mean Velocity: 0.58 m/s Peak Gradient: 3 mmHg Mean Gradient: 2 mmHg LVOT Diameter: 1.9 cm LVOT VTI: 16.1 cm Stroke Volume: 46 ml Stroke Volume Index: 30.46 ml/m^2 Structures Left Ventricle Diastolic Dimension: 4.4 cm Systolic Dimension: 3.2 cm Septum Diastolic: 0.6 cm Septum Systolic: 0.9 cm PW Diastolic: 0.8 cm PW Systolic: 1 cm Diastolic Length: 22.7 cm Systolic Length: 14.5 cm EF Calculated: 52.82% CI: 2.17 l/min*m^2 CO: 3.28 l/min RWT: 0.36 LV EDV: 53.2 ml FS: 27.27 % LV EDV Index: 35 m^2 LV Length: 6.96 cm LV ESV: 25.1 ml LVOT Diameter: 1.9 cm LV ESV Index: 17 m^2 Right Ventricle RVOT (PLAX) diameter:2.6 cm Tissue Doppler RV S': 10 TAPSE: 1.51 cm Left Atrium LA Systolic Pressure: 7.02 mmHg LA Area: 11.6 cm^2 LA Volume: 30.8 ml LA Index: 20ml/m^2 Right Atrium RA Area: 10.6 cm^2 Great Vessels Aorta Ascending Aorta: 2.4 cm Aorta Root:2.3 cm Ascending Aorta Index:1.59 cm/m^2 Demographics Age 29 Gender Female Race Height 64.02 in. Weight 108.01 lbs. BMI (BSA) 18.53 kg/m^2 (1.51 m^2) Glass Sagger Brandy Covarrubias Interpreting Martin Referring YURY Reyes Physician [facility] Physician Suresh [place] MD IMG ECHO ORDERABLES Edite d Result - Final * XR CHEST 2 VIEWS (12/19/2024 2:27 PM CDT) Anatomical Region Laterality Modality Chest N/A Digital Radiogra phy 12/19/2024 6:09 PM CDT Impressions 12/19/2024 6:11 PM CDT IMPRESSION: No acute cardiopulmonary abnormality. Narrative 12/19/2024 6:11 PM CDT EXAM DESCRIPTION: XR CHEST 2 VIEWS REASON FOR STUDY: congestion, cough, chest pain x 2.5 weeks. TECHNIQUE: 2 radiographic view(s) of the chest. COMPARISON: 07/13/2020 FINDINGS: LUNGS: No focal opacity, pleural effusion, or pneumothorax. HEART/MEDIASTINUM: Cardiac silhouette normal in size. Mediastinal and hilar contours appear normal. LINES/TUBES: None. BONES: No acute osseous abnormality. THIS IS AN ELECTRONICALLY VERIFIED FINAL REPORT 12/19/2024 6:09 PM - Electronically signed by Javed MURRAY: TERRI Report ID: [id number] Reading Location: [id number] Procedure Note Javed Reddy MD - 12/19/2024 EXAM DESCRIPTION: XR CHEST 2 VIEWS REASON FOR STUDY: congestion, cough, chest pain x 2.5 weeks. TECHNIQUE: 2 radiographic view(s) of the chest. COMPARISON: 07/13/2020 FINDINGS: LUNGS: No focal opacity, pleural effusion, or pneumothorax. HEART/MEDIASTINUM: Cardiac silhouette normal in size. Mediastinal and hilar contours appear normal. LINES/TUBES: None. BONES: No acute osseous abnormality. THIS IS AN ELECTRONICALLY VERIFIED FINAL REPORT 12/19/2024 6:09 PM - Electronically signed by Javed Reddy M.D. KH: TERRI Report ID: [id number] Reading Location: [id number] IMPRESSION: No acute cardiopulmonary abnormality. Arthur King APRN, CNP IMG DIAGNOSTIC O RDERABLES Final Result * POC SARS-COV-2 BY MOLECULAR (12/13/2024 10:07 AM CDT) SARSCOV2 Negative Negative, INVALID PROCEDURE CONTROL Valid 12/13/2024 10:0 7 AM CDT Arthur King APRN, CNP POINT OF CARE TE STING (MANUAL) Final Result * POC INFLUENZA A AND B BY MOLECULAR (12/13/2024 10:07 AM CDT) INFLUENZA A RNA Negative Negative, Invalid INFLUENZA B RNA Negative Negative, Invalid PROCEDURE CONTROL Valid 12/13/2024 10:0 7 AM CDT Arthur Marcelo Fernando SCOWMAN, SEASONAL DELIVERY DRIVER POINT OF CARE TE STING (MANUAL) Final Result * XR HAND 3 OR MORE VIEWS RIGHT (11/15/2024 9:41 AM CDT) Anatomical Region Laterality Modality UPPER EXTREMITY, hand Right Digital Ra diography 11/15/2024 10:2 2 AM CDT Impressions 11/15/2024 10:25 AM CDT IMPRESSION: Mild soft tissue swelling involving the right hand without definite evidence of acute displaced fracture or dislocation. Narrative 11/15/2024 10:25 AM CDT EXAM DESCRIPTION: XR HAND 3 OR MORE VIEWS RIGHT REASON FOR STUDY: pt c/o pain and swelling to 4th and 5th MCP joint after punch an object 4 weeks ago. no hx of surgery TECHNIQUE: 3 radiographic view(s) of the right hand . COMPARISON: None FINDINGS: There is no definite evidence of acute displaced fracture or dislocation involving the right hand. There is mild soft tissue swelling. THIS IS AN ELECTRONICALLY VERIFIED FINAL REPORT 11/15/2024 10:22 AM - Electronically signed by Jenni Sanches D.O. PS: PS Report ID: [id number] Reading Location: [id number] Procedure Note Jenni Sanches, DO - 11/15/2024 EXAM DESCRIPTION: XR HAND 3 OR MORE VIEWS RIGHT REASON FOR STUDY: pt c/o pain and swelling to 4th and 5th MCP joint after punch an object 4 weeks ago. no hx of surgery TECHNIQUE: 3 radiographic view(s) of the right hand . COMPARISON: None FINDINGS: There is no definite evidence of acute displaced fracture or dislocation involving the right hand. There is mild soft tissue swelling. THIS IS AN ELECTRONICALLY VERIFIED FINAL REPORT 11/15/2024 10:22 AM - Electronically signed by Jenni Sanches D.O. PS: PS Report ID: [id number] Reading Location: [id number] IMPRESSION: Mild soft tissue swelling involving the right hand without definite evidence of acute displaced fracture or dislocation. Suresh Wright MD IMG DIAGNOSTIC ORDERABLES Final Result * EKG 12 LEAD (11/15/2024 9:26 AM CDT) Ventricular Rate 89 BPM EXTERNAL EKG Atrial Rate 89 BPM EXTERNAL EKG P-R Interval 120 ms EXTERNAL EKG QRS Duration 64 ms EXTERNAL EKG Q-T Duration 338 ms EXTERNAL EKG QTC CALCULATION 411 ms EXTERNAL EKG P [place] 65 degrees EXTERNAL EKG R [place] 75 degrees EXTERNAL EKG T [place] 64 degrees EXTERNAL EKG 11/15/2024 9:26 AM CDT Impressions EXTERNAL EKG - 11/16/2024 11:56 AM CDT Normal sinus rhythm Normal ECG When compared with ECG of 13-JUL-2023 09:12, No significant change was found Confirmed by Greg Morgan ([id number]) on 11/16/2024 11:56:11 AM Narrative Procedure Note Greg Morgan MD - 11/16/2024 IMPRESSION: Normal sinus rhythm Normal ECG When compared with ECG of 13-JUL-2023 09:12, No significant change was found Confirmed by Greg Morgan ([id number]) on 11/16/2024 11:56:11 AM Suresh Wright MD IMG ECG ORDERABLES Final Result EXTERNAL EKG * (ABNORMAL) CBC WITH AUTO DIFFERENTIAL (11/15/2024 9:21 AM CDT) Pathologist [facility] WBC 8.77 4.00 - 12.00 10(3)/mcL 11/15/2024 9:56 AM CDT [facility] RBC 3.90 3.80 - 5.30 10(6)/mcL 11/15/2024 9:56 AM CDT [facility] HEMOGLOBIN (HGB) 12.2 12.0 - 15.8 g/dL 11/15/2024 9:56 AM CDT [facility] HEMATOCRIT (HCT) 36.2 36.0 - 47.0 % 11/15/2024 9:56 AM CDT [facility] MCV 92.8 82.0 - 96.0 fL 11/15/2024 9:56 AM CDT [facility] MCH 31.3 26.0 - 34.0 pg 11/15/2024 9:56 AM CDT [facility] MCHC 33.7 31.0 - 36.0 g/dL 11/15/2024 9:56 AM CDT [facility] PLATELET COUNT 375 140 - 440 10(3)/mcL 11/15/2024 9:56 AM CDT [facility] RDW 12.8 11.8 - 15.5 % 11/15/2024 9:56 AM CDT [facility] MPV 9.9 9.7 - 12.4 fL 11/15/2024 9:56 AM CDT [facility] NEUTROPHILS 58.0 47.0 - 73.0 % 11/15/2024 9:56 AM CDT [facility] LYMPHOCYTES 32.5 18.0 - 42.0 % 11/15/2024 9:56 AM CDT [facility] MONOCYTES 5.1 4.0 - 12.0 % 11/15/2024 9:56 AM CDT [facility] EOSINOPHILS 3.3 0.0 - 5.0 % 11/15/2024 9:56 AM CDT [facility] BASOPHILS 1.1(H) 0.0 - 1.0 % 11/15/2024 9:56 AM CDT [facility] ABSOLUTE NEUTROPHILS 5.08 1.60 - 7.70 10(3)/mcL 11/15/2024 9:56 AM CDT [facility] ABSOLUTE LYMPHOCYTES 2.85 1.30 - 3.20 10(3)/mcL 11/15/2024 9:56 AM CDT [facility] ABSOLUTE MONOCYTES 0.45 0.20 - 1.00 10(3)/mcL 11/15/2024 9:56 AM CDT [facility] ABSOLUTE EOSINOPHIL 0.29 0.00 - 0.40 10(3)/mcL 11/15/2024 9:56 AM CDT [facility] ABSOLUTE BASOPHILS 0.10 0.00 - 0.10 10(3)/mcL 11/15/2024 9:56 AM CDT [facility] NRBC PER 100 WBC 0 11/16/19 9:56 AM CDT [facility] Blood Venipuncture / Unknown 11/15/2024 9:21 AM CDT 11/15/2024 9:45 AM CDT Suresh Wright MD HEMATOLOGY ORDERABLES Fin al Result [facility] [address] [place] [address] * THYROXINE (T4) FREE (11/15/2024 9:21 AM CDT) T4 FREE 1.0 0.7 - 1.9 ng/dL 11/15/2024 10:29 AM CDT [facility] Blood Venipuncture / Unknown 11/15/2024 9:21 AM CDT 11/15/2024 9:45 AM CDT Result [facility] Suresh Wright MD CHEMISTRY ORDERABLES Jane l Result [facility] [address] [place] [address] * THYROID STIMULATING HORMONE (TSH) (11/15/2024 9:21 AM CDT) TSH 0.370 0.300 - 5.000 mIU/L 11/15/2024 10:29 AM CDT [facility] Blood Venipuncture / Unknown 11/15/2024 9:21 AM CDT 11/15/2024 9:45 AM CDT Suresh Kirt Wright MD CHEMISTRY ORDERABLES Jane l Result [facility] [address] [place] [address] * (ABNORMAL) CMP (COMPREHENSIVE METABOLIC PANEL) (11/15/2024 9:21 AM CDT) SODIUM 137 136 - 145 mmol/L 11/15/2024 10:14 AM CDT [facility] POTASSIUM 4.4 3.5 - 5.1 mmol/L 11/15/2024 10:14 AM CDT [facility] CHLORIDE 103 98 - 107 mmol/L 11/15/2024 10:14 AM CDT [facility] CO2, VENOUS 25 22 - 30 mmol/L 11/15/2024 10:14 AM CDT [facility] ANION GAP 13.4 <18.0 mmol/L 11/15/2024 10:14 AM CDT [facility] GLUCOSE 208(H) 70 - 99 mg/dL 11/15/2024 10:14 AM CDT [facility] BUN 15 5 - 18 mg/dL 11/15/2024 10:14 AM CDT [facility] CREATININE, BLOOD 0.75 0.60 - 1.00 mg/dL 11/15/2024 10:14 AM CDT [facility] BUN/CREATININE RATIO 20 12 - 20 ratio 11/15/2024 10:14 AM CDT [facility] TOTAL PROTEIN 7.0 6.0 - 8.0 g/dL 11/15/2024 10:14 AM CDT [facility] ALBUMIN 4.1 3.5 - 5.0 g/dL 11/15/2024 10:14 AM CDT [facility] A/G RATIO 1.4 1.0 - 2.2 11/15/2024 10:14 AM CDT [facility] CALCIUM 8.9 8.7 - 10.5 mg/dL 11/15/2024 10:14 AM CDT [facility] T BILI 0.1(L) 0.2 - 1.2 mg/dL 11/15/2024 10:14 AM CDT [facility] SGOT (AST) 18 <43 U/L 11/15/2024 10:14 AM CDT [facility] SGPT (ALT) 10 <56 U/L 11/15/2024 10:14 AM CDT [facility] ALKALINE PHOSPHATASE 79 40 - 150 U/L 11/15/2024 10:14 AM CDT [facility] IS THE PATIENT REQUIRED TO BE FASTING? No 11/15/2024 10:14 AM CDT [facility] GFR, ESTIMATED >60 >=60 11/15/2024 10:14 AM CDT [facility] Comment: Creatinine Clearance is the preferred criteria for selecting drug dose adjustments in renally impaired patients. The GFR is provided as additional pertinent clinical information. GFR is reported in mL/min/1.73 sq m. Calculation based on the Chronic Kidney Disease Epidemiology Collaboration (CKD- EPI) equation refit without adjustment for race. GFR, EST. >60 >=60 025 10:14 AM CDT [facility] GFR, EST. NONAFRICAN >60 >=60 11/15/2024 10:14 AM CDT [facility] Blood Venipuncture / Unknown 11/15/2024 9:21 AM CDT 11/15/2024 9:45 AM CDT us Suresh Wright MD CHEMISTRY ORDERABLES Jane l Result [facility] [address] [place] [address] * (ABNORMAL) POCT GLYCOSYLATED HEMOGLOBIN (10/10/2024 10:02 AM HYDROLOGICAL TECHNICAL OFFICER) HGB-A1C 7.3(A) 4 - 6 % Blood 10/10/2024 10:0 2 AM HYDROLOGICAL TECHNICAL OFFICER Luzmaria Cates MD POINT OF CARE TESTING (MANUAL) F inal Result * HM DILATED EYE EXAM (04/18/2023 12:00 AM CDT) 04/18/2023 us Provider Scan PROCEDURE/MINOR SURGICAL ORDERAB LES Final Result SCAN from Last 3 Months or Most Recently Relevant to Health Maintenance Insurance MEDICAID [employer] Care Teams Web Production Artist Relationship Specialty Start Date End Date Arthur King APRN, CNP [address] [facility] [address] [place] [address] PCP - General Advanced Practice Nurse 12/24/22 Luzmaria Cates MD #2 [facility] [address] [place] [address] Consulting Physician Endocrinology 02/20/24 Henri West MD #2 [facility] [address] [place] [phone] Consulting Physician General Surgery 07/20/24 Maura Lenz, SCOWMAN, SEASONAL DELIVERY DRIVER [address] [place] [address] Nurse Practitioner Advanced Practice Nurse 12/07/24
--- OUTSIDE RECORDS SUMMARY | 2024-12-30 22:00 | XMS_ITS | Clinical Summary ---
Author Organization [facility] Address [address] [place] [address] Care Team Providers Care Retort Unloader Name Role Phone Arthur King NP Primary [...] 10/14/2022 Assessment & Plan (10/14/2022 1:17 PM QUALITY ANALYST): BMI is acceptable for this patient. Discussed healthy diet and importance of regular physical activity (20- 30min/day, 150min/wk). Physically active at work walking all day. Insulin pump in place 03/18/2022 Assessment & Plan (10/14/2022 1:18 PM QUALITY ANALYST): Changed CF from 75 to 70. All other settings unchanged. Aware to send [email or web address] message if seeing patterns of uncontrolled BS. Assessment & Plan (03/18/2022 2:17 PM CDT): BR 0.5 CR 15 Continue same other settings for now. Migraine 09/13/2019 Depression 09/13/2019 Type 1 diabetes mellitus with hyperglycemia 10/07 Assessment & Plan (10/14/2022 1:19 PM QUALITY ANALYST): Please call to set up diabetic eye exam. Changed CF from 75 to 70. All other settings unchanged. Aware to send [employer] message if seeing patterns of uncontrolled BS. [...] preeclampsia, prior pr egnancy, currently 02/20/2013 05/06/2022 Surgical History Surgery Date Site/Laterality Comments SECTION TYMPANOSTOMY TUBE PLACEMENT SECTION Medical History Medical History Date Comments Personal history of other en docrine, nutritional and metabolic disease History of type 1 di abetes mellitus - (Added by TW Conv) Hx of preeclampsia, prior pr egnancy, currently 02/20/2013 History of delivery 11/01/2014 Family History Medical History Relation Name Comments Diabetes Father Diabetes Maternal Grandmother Diabetes Mother's Sister Relation Name Status Comments Father Maternal Grandmother Mother's Sister Social History Tobacco Use Types Packs/Day Years [...] on file Legal Sex Female 8:13 AM QUALITY ANALYST Gender Identity Female 01/01/2022 10:11 AM CDT Sexual Orientation Straight 01/01/2022 10 :11 AM CDT Obstetrics History Last Filed Vital Signs Vital Sign Reading Time Taken Comments Blood Pressure 102/72 10/14/2022 11:28 AM QUALITY ANALYST Pulse 99 10/14/2022 11:28 AM QUALITY ANALYST Temperature - - Respiratory Rate 16 10/14/2022 11:28 AM QUALITY ANALYST Oxygen Saturation 100% 02/05/2010 6:50 AM CDT Inhaled Oxygen Concentration - - Weight 57 kg (125 lb 10.6 oz) 10/14/2022 11:28 A M QUALITY ANALYST Height 167.6 cm (5' 5.98 ) 10/14/2022 11:[address] Body Mass Index 20.29 10/14/2022 11:28 AM QUALITY ANALYST Plan of Treatment Health Maintenance Due Date Last Done Comments Cervical Cancer Screening 1993 Hepatitis C Screening 1993 Varicella Vaccines (1 of 2 - 13+ 2-dose series) 2006 Regular Well Visit/Exam 18-64 2011 Pneumococcal vaccine <65 (1 of 2 - PCV) 2012 Depression Screening 01/05/2023 01/05/2022 Albumin Creatinine Ratio, Urine 03/18/2023 , 05/05/2020 Foot Exam 03/18/2023 03/18/2022, 03/05, 05/05/2020, Additional history exists Lipid Panel 03/18/2023 03/18/2022, 05/05/2020 TSH Level 03/18/2023 03/18/2022 eGFR 03/18/2023 03/18/2022, 05/05/2020 Hemoglobin A1C 04/13/2023 10/14/2022, 03/05, 01/05/2022, Additional history exists DTaP/Tdap/Td Vaccine (6 - Td or Tdap) 03/27/2025 03/27/2015, 05/20/2003, 06/23/1997, Additional history exists Dilated Eye Exam 04/01/2025 04/01/2023, 11/23/2019 Influenza Vaccine (Season Ended) 2025 05/28/20 16 Hepatitis B Screening Completed 1993, 993 HPV Vaccines Completed 11/13/2007, 1101/2007, 05/01/2007 Procedures Procedure Name Priority Date/Time Associated Diagnosis Comments HM DIABETES EYE EXAM Routine 04/01/2023 7:29 AM CDT POCT HEMOGLOBIN A1C Routine 10/14/2022 1 1:39 AM QUALITY ANALYST Type 1 diabetes mellitus with hyperglycemia (HCC) [...] * POCT hemoglobin A1c (10/14/2022 11:39 AM QUALITY ANALYST) Hemoglobin A1C, POC 6.9 % Blood 10/14/2022 11:3 9 AM QUALITY ANALYST Carly Murrieta NP POINT OF CARE TEST [...] 2:40 PM CDT 03/18/2022 5:39 PM CDT [facility] BLOOD ORDERABLES Fi nal Result Performing Organization Address [facility] Co de Phone Number PHIL [phone] [address] [facility] [place] [address] * Albumin Creatinine Ratio, Urine (03/18/2022 2:40 PM CDT) Albumin Ur 21.7 mg/L [facility] Comment: Interpretive Data No reference range established. Current interpretive data was last revised 2019. Creatinine Ur 232.0 mg/dL [facility] Comment: Interpretive Data No reference range established. Current interpretive data was last revised 2019. Albumin Creatinine Ratio, Ur 9 1 - 29 mg/g [facility] Urine 03/18/2022 2:40 PM CDT 03/18/2022 5:37 PM CDT Result [facility] URINE ORDERABLES Fi nal Result Performing Organization Address [facility] Co de Phone Number [facility] [phone] [facility] [place] [address] * TSH (03/18/2022 2:40 PM CDT) Thyroid Stimulating Hormone 0.70 0.30 - 4.20 mcIUnit/mL [facility] Blood 03/18/2022 2:40 PM CDT 03/18/2022 5:37 PM CDT Result [facility] BLOOD ORDERABLES Fi nal Result Performing Organization Address [facility] Co de Phone Number [facility] [phone] [facility] [place] [address] * Lipid panel (03/18/2022 2:40 PM CDT) [...] on 2018. HDL 52 >=40 mg/dL [facility] Comment: Interpretive Data Ages [...] blood drawn. [facility] BLOOD ORDERABLES nal Result PHIL [phone] [facility] [place] [address] from Last 3 Months or Most Recently Relevant to Health Maintenance Insurance [facility] Care Teams Retort Unloader Relationship Specialty Start Date End Date Arthur King NP 2 [facility] [address] [address] PCP - General Nurse Practitioner 02/09/24
--- OUTSIDE RECORDS SUMMARY | 2024-12-30 22:00 | XMS_ITS | Encounter Summary ---
Author Organization [facility] Address [address] [facility] [place] [address] Phone Care Team Providers Care Credit Authorizer Name Role Phone Arthur King CEMETERY WARDEN, AEROSOL LINE OPERATOR Primary Care Pr ovider Luzmaria Cates MD Unavailable Henri West MD Unavailable [phone] Maura Lenz CEMETERY WARDEN, AEROSOL LINE OPERATOR Unavailable [phone] Reason for Referral * Radiology Services (Routine) - Closed Specialty Diagnoses / Procedures Referred By Contac t Referred To Contact Radiology Diagnoses Mass of left breast, unspecified quadrant Procedures DOMINIQUE BREAST SURGICAL SPECIMEN POST BIOPSY Henri West MD [address] [address] Phone: tel: fax: Referral ID Status Reason Start Date Expiration Date Visits Re quested Visits Authorized [id number] Closed 07/26/2024 1 1 [facility] Encounter Details Date Type Department Care Team (Late st Contact Info) Description 07/26/2024 Transcribe [facility] [address] [place] [address] Henri West MD #[address] [address] Mass of left breast, unspecified quadrant (Primary Dx) Social History Tobacco Use Types Packs/Day Years Used Date Smoking Tobacco: Every Day Smokeless Tobacco: Never Comments:Former cigarette us e; stopped about 07/2023 Currently uses vape Alcohol Use Standard Drinks/Week Comments Not Currently 0 (1 standard drink = 0.6 oz pur e alcohol) [facility] Utilities Answer Date Recorded In the past 12 months has e electric, gas, oil, or water company threatened to shut off services in your home? Yes 05/17/2024 Social Connection and Isolat ion Panel [NHANES] Answer Date Recorded In a typical week, how many times do you talk on the phone with family, friends, or neighbors? More than three times a week 05/17/2024 How often do you get togethe r with friends or relatives? Never 05/17/2024 How often do you attend chur ch or episcopalian services? Never 05/17/2024 Do you belong to any clubs o r organizations such as caodaism groups, unions, fraternal or athletic groups, or school groups? No 05/17/2024 How often do you attend meet ings of the clubs or organizations you belong to? Never 05/17/2024 Are you , , di vorced, , never , or living with a partner? 05/17/2024 AUDIT-C Answer Date Recorded Q1: How often do you have a drink containing alcohol? Never 05/17/2024 Q2: How many drinks containi ng alcohol do you have on a typical day when you are drinking? Patient does not drink Q3: How often do you have si x or more drinks on one occasion? Never 05/17/2024 Overall Financial Resource Strain (CARDIA) Answe r Date Recorded How hard is it for you to pa y for the very basics like food, housing, medical care, and heating? Hard 05/17/2024 PHQ-2 Answer Date Recorded Total Score - Questions 1-9 6 12/05 [facility] - Occupational Stress Questionnaire Answer Date Recorded Do you feel stress - tense, restless, nervous, or anxious, or unable to sleep at night because your mind is troubled all the time - these days? Very much 05/17/2024 Exercise Vital Sign Answer Date Recorde d On average, how many days pe r week do you engage in moderate to strenuous exercise (like a brisk walk)? 5 days 05/17/2024 On average, how many minutes do you engage in exercise at this level? 150+ min 05/17/2024 Hunger Vital Sign Answer Date Recorded Within the past 12 months, y ou worried that your food would run out before you got the money to buy more. Never true 05/17/20 24 Within the past 12 months, t he food you bought just didn't last and you didn't have money to get more. Never true 05/17/2024 PRAPARE - Transportation Answer Date Re corded In the past 12 months, has l ack of transportation kept you from medical appointments or from getting medications? No 05/06 In the past 12 months, has l ack of transportation kept you from meetings, work, or from getting things needed for daily living? No 05/17/2024 Housing Stability Vital Sign Answer Junior e Recorded In the last 12 months, was t here a time when you were not able to pay the mortgage or rent on time? No 05/17/2024 In the past 12 months, how m any times have you moved where you were living? 0 05/17/2024 At any time in the past [address] [facility], were you homeless or living in a senior living (including now)? No 05/17/2024 Education Answer Date Recorded What is the [...] Description 01/07/2025 9:30 AM CDT Office Visit [facility] - Endocrinology - [place] [address] [place] [phone] Luzmaria Cates MD [address] [phone] 01/11/2025 1:30 PM CDT Appointment [facility] Ultrasound [address] [place] [phone] Suresh Wright MD #[address] [address] Discharge Disposition: Discharged to home or Selfcare 01/14/2025 8:30 AM CDT Office Visit [facility] - Family Medicine - [place] [address] [place] [phone] Arthur King APRN, AEROSOL LINE OPERATOR #[address] [address] Scheduled Orders Name Type Priority Associated Diagnoses Orde r Schedule DOMINIQUE BREAST SURGICAL SPECIMEN POST BIOPSY Imaging Routine Mass of left breast, unspecified quadrant Expected: 08/25/2024, Expires: 11/23/2024 documented as of this encounter Visit Diagnoses Diagnosis Mass of left breast, unspecified quadrant- Primary documented in this encounter Additional Health Concerns Infection Onset Date Last Indicated Resolved Time Respiratory Rule-Out 12/13/2024 12/13/2024 025 10:07 AM CDT COVID - 19 12/13/2024 12/13/2024 12/13/2024 10:0 7 AM CDT Assessment Noted Time PHQ-9 Depression Total Score: 6 12/25/19 23 8:32 AM CDT documented as of this encounter Care Teams Credit Authorizer Relationship Specialty Start Date End Date Arthur King, CALLY, AEROSOL LINE OPERATOR #[address] [address] PCP - General Advanced Practice Nurse 12/24/22 Luzmaria Cates MD #[address] [phone] Consulting Physician Endocrinology 02/20/24 Henri West MD [address] [address] Consulting Physician General Surgery 07/20/24 Maura Lenz, CEMETERY WARDEN, AEROSOL LINE OPERATOR [address] [place] [address] Nurse Practitioner Advanced Practice Nurse 12/07/24 documented as of this encounter
--- OUTSIDE RECORDS SUMMARY | 2024-12-30 22:00 | XMS_ITS | Encounter Summary ---
Author Organization [facility] Address [address] [facility] [place] [address] Phone Care Team Providers Care Plastic Roller Name Role Phone Arthur King APRN, PULL TAB DEALER Primary Care Pr ovider Luzmaria Cates MD Unavailable Henri West MD Unavailable [phone] Maura Lenz APRN, PULL TAB DEALER Unavailable [phone] Reason for Visit * Reason Comments Medication Refill Encounter Details Date Type Department Care Team (Late st Contact Info) Description 04/06/2023 Refill [facility] - Family Medicine - [place] #2 [place] [address] Arthur King APRN, PULL TAB DEALER #[address] [address] Medication Refill Social History Tobacco Use Types [...] encounter Miscellaneous Notes * Telephone Encounter - Dede Renteria RN - 04/06/2023 1:48 PM CDT Medication failed the protocol, provider to review and approve the medication order if appropriate. Requested Prescriptions Pending Prescriptions Disp Refills amitriptyline (ELAVIL) 25 MG Tablet [Pharmacy Med Name: AMITRIPTYLINE HCL 25 MG TAB] 30 Tablet 1 Sig: Take 1 Tablet by mouth nightly. Not Delegated - Tricyclic Agents Protocol Failed - 04/06/2023 12:06 AM Failed - This refill cannot be delegated Passed - Visit with relevant provider in past 12 months or upcoming 90 days Recent Visits Date Type Provider Dept 02/23/23 Office Visit Arthur King APRN, [facility] [place] 12/24/22 Office Visit Arthur King APRN, [facility] Showing recent visits within past 365 days and meeting all other requirements Future Appointments No visits were found meeting these conditions. Showing future appointments within next 90 days and meeting all other requirements documented in this encounter Plan of Treatment Upcoming Encounters Date Type Department Care Team (Late st Contact Info) Description 01/07/2025 9:30 AM CDT [facility] - [place] #2 [place] [address] Luzmaria Cates MD #2 [facility] [address] [place] [address] 01/11/2025 1:30 PM CDT [facility] 1 [place] [address] Suresh Wright MD #2 [facility] [address] [place] [address] Discharge Disposition: Discharged to home or Selfcare 01/14/2025 8:30 AM CDT [facility] Visit [facility] Family [facility] #2 [place] [address] Arthur King APRN, PULL TAB DEALER #[id number] [address] documented as of this encounter Visit Diagnoses Diagnosis PTSD (post-traumatic stress disorder) Posttraumatic stress disorder documented in this encounter Additional Health Concerns Infection Onset Date Last Indicated Resolved Time Respiratory Rule-Out 12/13/2024 12/13/2024 025 10:07 AM CDT COVID - 19 12/13/2024 12/13/2024 12/13/2024 10:0 7 AM CDT Assessment Noted Time PHQ-9 Depression Total Score: 6 12/25/19 8:32 AM CDT documented as of this encounter Care Teams Plastic Roller Relationship Specialty Start Date End Date Arthur King APRN, PULL TAB DEALER [id number] [address] PCP - General Advanced Practice Nurse 12/24/22 Luzmaria Cates MD #[address] [address] Consulting Physician Endocrinology 02/20/24 Henri West MD #[id number] [address] Consulting Physician General Surgery 07/20/24 Maura Lenz APRN, PULL TAB DEALER #2 [facility] [place] [place] [address] Nurse Practitioner Advanced Practice Nurse 12/07/24 documented as of this encounter
--- OUTSIDE RECORDS SUMMARY | 2024-12-30 22:00 | XMS_ITS | Encounter Summary ---
Author Organization [facility] Address [address] [facility] [address] Phone Care Team Providers Care Doll Maker Name Role Phone Arthur King APRN, HADOOP CONSULTANT Primary Care Pr ovider Luzmaria Cates MD Unavailable Henri West MD Unavailable [phone] Maura Lenz APRN, HADOOP CONSULTANT Unavailable [phone] Encounter Details Date Type Department Care Team (Late st Contact Info) Description 11/18/2024 Results Follow-Up [facility] - Family Medicine - [place] #2 [place] [address] Suresh Wright MD #[address] [address] THYROID STIMULATING HORMONE (TSH), THYROXINE (T4) FREE, CMP (COMPREHENSIVE METABOLIC PANEL), Additional followed-up results: 2 Social History Tobacco Use Types Packs/Day Years Used Date Smoking Tobacco: Never Smokeless Tobacco: Never Comments:Former cigarette us e; stopped about 07/2023 Currently uses vape Alcohol Use Standard Drinks/Week Comments Not Currently 0 (1 standard drink = 0.6 oz pur e alcohol) [facility] Utilities Answer Date Recorded In the [...] How often do you attend chur or amish services? Patient declined 11/13/2024 Do you belong to any clubs o r organizations such as restorationism groups, unions, fraternal or athletic groups, or [...] Total Score - Questions 1-9 0 08/06 [facility] - Occupational Stress Questionnaire Answer Date [...] a group home (including now)? Patient declined 11/13/2024 Education Answer [...] Office Visit [facility] - Endocrinology [facility] #2 [place] [address] Luzmaria Cates MD #2 [facility] [address] [place] [address] 01/11/2025 1:30 PM CDT Appointment [facility] Ultrasound 1 [place] [address] Suresh Wright MD #2 [facility] [address] [place] [address] Discharge Disposition: Discharged to home or Selfcare 01/14/2025 8:30 AM CDT Office Visit [facility] - Family Medicine [facility] #2 [place] [address] Arthur King APRN, HADOOP CONSULTANT #[address] [address] documented as of this encounter Visit Diagnoses Not on filedocumented in this encounter Additional Health Concerns Infection Onset Date Last Indicated Resolved Time Respiratory Rule-Out 12/13/2024 12/13/2024 025 10:07 AM CDT COVID - 19 12/13/2024 12/13/2024 12/13/2024 10:0 7 AM CDT Assessment Noted Time PHQ-9 Depression Total Score: 0 08/28/20 8:02 AM IT SOFTWARE DEVELOPER documented as of this encounter Care Teams Doll Maker Relationship Specialty Start Date End Date Arthur King APRN, HADOOP CONSULTANT #[address] [address] [address] PCP - General Advanced Practice Nurse 12/24/22 Luzmaria Cates MD #[address] [address] Consulting Physician Endocrinology 02/20/24 Henri West MD #[id number] [address] Consulting Physician General Surgery 07/20/24 Maura Lenz APRN, HADOOP CONSULTANT #[facility] [place] [address] Nurse Practitioner Advanced Practice Nurse 12/07/24 documented as of this encounter
--- OUTSIDE RECORDS SUMMARY | 2024-12-30 22:00 | XMS_ITS | Encounter Summary ---
Author Organization [facility] Address [address] [facility] [place] [address] Phone Care Team Providers Care Publications Manager Name Role Phone Arthur King APRN, POLICE PATROL OFFICER Primary Care Pr ovider Luzmaria Cates MD Unavailable Henri West MD Unavailable [phone] Maura Lenz TILT TRAY DRIVER, POLICE PATROL OFFICER Unavailable [phone] Reason for Visit * Reason Comments Medication Refill Encounter Details Date Type Department Care Team (Late st Contact Info) Description 08/10/2023 Refill [facility] - Family Medicine - [place] #2 [place] [address] Vandana Jacques APRN, POLICE PATROL OFFICER #[address] [address] Medication Refill Social History Tobacco Use Types [...] on file Sexual Orientation Not on file COVID-19 Exposure Response Date Recorded In the last 10 days, have yane u been in contact with someone who was confirmed or suspected to have Coronavirus/COVID-19? No / Unsure 07/15/2023 10:17 AM PUTTY MAKER documented as of this encounter Miscellaneous Notes * Telephone Encounter - Lyn Currie RN - 05/18/2024 3:43 PM CDT No refill to cancel [facility]/pharmacy #[id number] - [place], [place] - [address] [facility] [address] [facility] [address] Hours: Not open 24 hours Outpatient Medication Detail Disp Refills Start End buPROPion (WELLBUTRIN) 150 MG XL tablet (Discontinued) 90 Tablet 1 08/10/2023 05/17/2024 Sig: TAKE 1 TABLET BY MOUTH EVERY DAY IN THE MORNING Patient not taking: Reported on 04/20/2024 Sent to pharmacy as: buPROPion HCl ER (XL) 150 MG Oral Tablet Extended Release 24 Hour (WELLBUTRIN) Class: E Prescribe Reason for Discontinue: Med List Clean Up E-Prescribing Status: Receipt confirmed by pharmacy (08/10/2023 10:30 AM PUTTY MAKER) E-Cancel Status: Request denied by pharmacy (05/17/2024 4:18 PM CDT) E-Cancel Status Note: Prescription not found. Contact Pharmacy by other means * Telephone Encounter - Lyn Currie RN - 08/10/2023 8:34 AM CST Medication failed the protocol, provider to review and approve the medication order if appropriate. Requested Prescriptions Pending Prescriptions Disp Refills buPROPion (WELLBUTRIN) 150 MG XL tablet [Pharmacy Med Name: BUPROPION HCL XL 150 MG TABLET] 90 Tablet 1 Sig: TAKE 1 TABLET BY MOUTH EVERY DAY IN THE MORNING Bupropion (6 Month Refill Only) Protocol Failed - 08/10/2023 12:04 AM Failed - Patient has established therapy with Bupropion for at least 6 months Passed - No test in the past 12 months or most recent test was negative Passed - No active on record Passed - Visit with relevant provider in past 6 months or upcoming 90 days Recent Visits Date Type Provider Dept 07/15/23 Office Visit Arthur King APRN, [facility] 06/07/23 Office Visit Arthur King APRN, [facility] 05/12/23 Office Visit Vandana Jacques APRN, [facility] 02/23/23 Office Visit Arthur King APRN, [facility] Showing recent visits within past 182 days and meeting all other requirements Future Appointments No visits were found meeting these conditions. Showing future appointments within next 90 days and meeting all other requirements Passed - Has an encounter in the past 6 months with a depression or anxiety visit diagnosis Y MAKER documented in this encounter Plan of Treatment Upcoming Encounters Date Type Department Care Team (Late st Contact Info) Description 01/07/2025 9:30 AM CDT Office Visit [facility] Medical [facility] - Endocrinology [facility] #2 [place] [address] Luzmaria Cates MD #2 [facility] [address] [place] [address] 01/11/2025 1:30 PM CDT Appointment [facility] Ultrasound 1 [place] [address] Suresh Wright MD #2 [facility] [address] [place] [address] Discharge Disposition: Discharged to home or Selfcare 01/14/2025 8:30 AM CDT Office Visit [facility] Medical [facility] - Family Medicine [facility] #2 [place] [address] Arthur King APRN, [facility] #2 [facility] [address] [place] [address] documented as of this encounter Visit Diagnoses Diagnosis Bipolar affective disorder, currently depressed, moderate (HCC) Bipolar I disorder, most recent episode (or current) depressed, moderate Anxiety Anxiety state, unspecified documented in this encounter Additional Health Concerns Infection Onset Date Last Indicated Resolved Time Respiratory Rule-Out 12/13/2024 12/13/2024 025 10:07 AM CDT COVID - 19 12/13/2024 12/13/2024 12/13/2024 10:0 7 AM CDT Assessment Noted Time PHQ-9 Depression Total Score: 6 12/25/19 23 8:32 AM CDT documented as of this encounter Care Teams Publications Manager Relationship Specialty Start Date End Date Arthur King APRN, POLICE PATROL OFFICER #2 [facility] [address] [place] [address] PCP - General Advanced Practice Nurse 12/24/22 Luzmaria Cates MD #2 [facility] [address] [place] [address] Consulting Physician Endocrinology 02/20/24 Henri West MD #2 [facility] [address] [place] [address] Consulting Physician General Surgery 07/20/24 Maura Lenz TILT TRAY DRIVER, POLICE PATROL OFFICER #2 [place] [address] Nurse Practitioner Advanced Practice Nurse 12/07/24 documented as of this encounter
--- OUTSIDE RECORDS SUMMARY | 2024-12-30 22:00 | XMS_ITS | Encounter Summary ---
Author Organization [facility] Address [address] [facility] [place] [address] Phone Care Team Providers Care Retail Parts Pro Name Role Phone Arthur King APRN, VOLLEYBALL COMMENTATOR Primary Care Pr ovider Luzmaria Cates MD Unavailable Henri West MD Unavailable [phone] Maura Lenz APRN, VOLLEYBALL COMMENTATOR Unavailable [phone] Encounter Details Date Type Department Care Team (Late st Contact Info) Description 11/16/2024 Results Follow-Up [facility] - Family Medicine - [place] #2 [place] [address] Suresh Wright MD #[address] [address] EKG 12 LEAD Social History Tobacco Use Types Packs/Day Years Used Date Smoking Tobacco: Never Smokeless Tobacco: Never Comments:Former cigarette us e; stopped about 07/2023 Currently uses vape Alcohol Use Standard Drinks/Week Comments Not Currently 0 (1 standard drink = 0.6 oz pur e alcohol) [facility] Utilities Answer Date Recorded In the past 12 months has [place], gas, oil, or water [employer] threatened to shut off services in your [...] often do you attend chur ch or religion services? Patient declined 11/13/2024 Do you belong to any clubs o r organizations such as congregation groups, unions, fraternal or athletic groups, or [...] Total Score - Questions 1-9 0 08/06 [facility] of Occupat ional [facility] - Occupational Stress Questionnaire Answer Date [...] were you homeless or living in a residential (including now)? Patient declined 11/13/2024 Education Answer [...] Office Visit [facility] End[facility]in[facility] #2 [place] [address] Luzmaria Cates MD #2 [facility] [address] [place] [address] 01/11/2025 1:30 PM CDT [facility] 1 [place] [address] Suresh Wright MD #2 [facility] [address] [place] [address] Discharge Disposition: Discharged to home or Selfcare 01/14/2025 8:30 AM CDT Office Visit [facility] Family [facility] #2 [place] [address] Arthur King APRN, VOLLEYBALL COMMENTATOR #[address] [address] documented as of this encounter Visit Diagnoses Not on filedocumented in this encounter Additional Health Concerns Infection Onset Date Last Indicated Resolved Time Respiratory Rule-Out 12/13/2024 12/13/2024 025 10:07 AM CDT COVID - 19 12/13/2024 12/13/2024 12/13/2024 10:0 7 AM CDT Assessment Noted Time PHQ-9 Depression Total Score: 0 08/28/20 8:02 AM CERTIFIED NOVELL ENGINEER documented as of this encounter Care Teams Retail Parts Pro Relationship Specialty Start Date End Date Arthur King APRN, VOLLEYBALL COMMENTATOR #[address] [address] PCP - General Advanced Practice Nurse 12/24/22 Luzmaria Cates MD #[address] [address] Consulting Physician Endocrinology 02/20/24 Henri West MD #[address] [address] Consulting Physician General Surgery 07/20/24 Maura Lenz APRN, VOLLEYBALL COMMENTATOR #2 [place] [address] Nurse Practitioner Advanced Practice Nurse 12/07/24 documented as of this encounter
[2024-12-31 01:53] VITALS: BP 129/83; PULSE 85; RESP 18; TEMP 36.6; O2SAT 98
[2024-12-31] MEDS: ACETAMINOPHEN 500 MG TABLET 1000 MG PO (02:10)
--- OUTSIDE RECORDS SUMMARY | 2024-12-31 02:16 | XMS_ITS | Clinical Summary ---
Author Organization [facility] Address [address] [place] [address] Phone Care Team Providers Care Emergency Preparedness Coordinator Name Role Phone Arthur King COGENERATION TECHNICIAN, HIGH SCHOOL FOREIGN LANGUAGE TUTOR Primary Care Pr ovider Luzmaria Cates MD Unavailable Henri West MD Unavailable Maura Lenz APRN, HIGH SCHOOL FOREIGN LANGUAGE TUTOR Unavailable [phone] Allergies Active Allergy Reactions Criticality Noted Date [...] 24 Active Insulin Disposable Pump (Omnipod 5 [id number] Pods Gen 5) Misc CHANGE POD EVERY [...] Protein Smart, 1 shake TID for malnutrition 32279 mL 5 11/22/19 25 Active Continuous Glucose [...] Department Care Team Description 12/21/2024 Results Follow-Up [facility] [address] [place] [address] Arthur King APRN, SHINE XR CHEST 2 VIEWS 12/20/2024 8:56 AM CDT - 12/20/2024 11:59 PM CDT [facility] [address] [place] [address] Suresh Wright MD Discharge Disposition: Discharged to home or Selfcare 12/19/2024 2:10 PM CDT - 12/19/2024 11:59 PM CDT Hospital Encounter [facility] Diagnostic Radiology [address] [place] [address] Arthur King APRN, SHINE Discharge Disposition: Discharged to home or Selfcare 12/19/2024 Travel 12/18/2024 Travel 12/13/2024 10:00 AM CDT Office Visit [facility] [address] [place] [address] Arthur King APRN, SHINE Viral bronchitis (Primary Dx); Myalgia Discharge Disposition: Discharged to home or Selfcare 12/12/2024 Travel 11/25/[facility]24 [facility] [place] [address] Arthur King APRN, SHINE Medication Refill 11/23/2024 [facility] [place] [address] Luzmaria Cates MD 11/21/2024 [facility] [place] [address] Arthur King APRN, SHINE Need Order (/) 11/20/2024 MyChart RX Renewal [facility] [address]2 [place] [phone] Luzmaria Cates MD Medication Renewal Request 11/20/2024 [facility]Chart [facility] [place] [address] Arthur King APRN, SHINE Medication Renewal Declined 11/20/2024 [facility] [place] [phone] Luzmaria Cates MD Medication Refill 11/19/2024 Telephone [facility] [address] [place] [phone] Arthur King APRN, HIGH SCHOOL FOREIGN LANGUAGE TUTOR Prior Authorization 11/18/2024 Results Follow-Up [facility] [address] [place] [phone] Suresh Wright MD THYROID STIMULATING HORMONE (TSH), THYROXINE (T4) FREE, CMP (COMPREHENSIVE METABOLIC PANEL), Additional followed-up results: 2 11/17/2024 Results Follow-Up [facility] [address] [place] [address] Suresh Wright MD XR HAND 3 OR MORE VIEWS RIGHT 11/16/2024 Results Follow-Up [facility] [address] [place] [address] Suresh Wright MD EKG 12 LEAD 11/16/[address] [facility] Mammography [address] [place] [address] Suresh Wright MD Abnormal mammogram (Primary Dx) 11/15/2024 9:31 AM CDT - 11/15/2024 11:59 PM CDT Hospital Encounter [facility] Diagnostic Radiology [address] [place] [address] Suresh Wright MD Discharge Disposition: Discharged to home or Selfcare 11/15/2024 9:20 AM CDT - 11/15/2024 9:30 AM CDT Hospital Encounter [facility] Cardiology Services [address] [place] [address] Suresh Wright MD Discharge Disposition: Discharged to home or Selfcare 11/15/2024 Travel 11/14/2024 1:45 PM CDT Office Visit [facility] [address] [place] [address] Suresh Wright MD Mood disorder (HCC) (Primary Dx); Right hand pain; PTSD (post-traumatic stress disorder); History of bipolar disorder; Well woman exam; Night sweats; Elevated LFTs; Bradycardia; Hypotension, unspecified hypotension type; Bipolar disorder, in partial remission, most recent episode depressed (HCC) Discharge Disposition: Discharged to home or Selfcare 11/13/2024 Travel 10/15/2024 8:30 AM JUKE BOX SERVICER Office Visit [facility] [address] [place] [phone] Arthur King APRN, SHINE Bipolar disorder, in partial remission, most recent episode depressed (HCC) (Primary Dx); Difficulty controlling anger Discharge Disposition: Discharged to home or Selfcare 10/15/2024 Travel 10/13/2024 Travel 10/10/2024 10:15 AM JUKE BOX SERVICER [facility] [address] [place] [phone] Luzmaria Cates MD Type 1 diabetes mellitus with hyperglycemia (HCC) (Primary Dx); Insulin pump titration; Hypoglycemia Discharge Disposition: Discharged to home or Selfcare 10/10/2024 Travel 10/03/2024 Travel from Last 3 Months Immunizations Immunization Administration Dates Next Due Covid-19, Mrna, Lnp-s, Pf, 3 0 Mcg/0.3 Ml Dose (oragenics) 01/23/2021,01/02/2021 DTAP VACCINE, 5 PERTUSSIS AN TIGENS, [...] drink = 0.6 oz pur e alcohol) [facility] Utilities Answer Date Recorded In the past 12 months has e [employer], gas, oil, or water [employer] threatened to shut off services in your home? Patient declined 12/12/2024 Social Connection and Isolation Panel [NHANES] A nswer Date Recorded In a typical week, how many times do you talk on the phone with family, friends, or neighbors? Patient declined 12/12/2024 How often do you get togethe r with friends or relatives? Patient declined 12/12/2024 How often do you attend voodoo or mandaen serv ices? Patient declined 12/12/2024 Do you belong to any clubs o r organizations such as voodoo groups, unions, fraternal or athletic groups, or [...] Total Score - Questions 1-9 0 08/06 [facility] - [facility] Stress Questionnaire Answer Date [...] any time in the past 12 m [facility], were you homeless or living in a senior living (including now)? Patient declined 12/12/2024 Education Answer [...] Description 01/07/2025 9:30 AM CDT Office Visit [facility] - Endocrinology [facility] #2 [place] [address] Luzmaria Cates MD #[address] [address] 01/11/2025 1:30 PM CDT [facility]ointment [facility] Ul[facility] [address] [place] [address] Suresh Wright MD #[address] [address] Discharge Disposition: Discharged to home or Selfcare 01/14/2025 8:30 AM CDT Office Visit [facility] - Family Medicine [facility] #2 [place] [address] Arthur King APRN, HIGH SCHOOL FOREIGN LANGUAGE TUTOR #[address] [address] Health Maintenance Due Date Last Done Comments [...] POCT GLYCOSYLATED HEMOGLOBIN Routine 10/10/2024 10:02 AM JUKE BOX SERVICER Type 1 diabetes mellitus with hyperglycemia (HCC) [...] ml/m2 RESULTING AGENCY LVOT Peak Javier m/sec [id number] m/sec RESULTING AGENCY AV Peak Javier m/sec 0.17882330 [id number] m/sec RESULTING AGENCY MV Mean Grad mmHg [...] VIRK Janneth Rojas 1995 Patient ID (UPI) [id number] Indications: Hypotension. Study Date12/20/2024 Technical quality: Good [...] lbs. BMI (BSA) 18.53 kg/m^2 (1.51 m^2) Word Processing Operator Brandy Covarrubias Interpreting Mario Reyes Physician Valente Physician Procedure Note Valente Martin MD - 12/20/2024 Transthoracic Echocardiography Report (TTE) Patient name PEE Lagunas Crystal 1995 Patient ID (UPI) [id number] Indications: Hypotension. Study Date12/20/2024 Technical quality: Good [...] lbs. BMI (BSA) 18.53 kg/m^2 (1.51 m^2) Word Processing Operator Brandy Covarrubias Interpreting Martin Referring YURY Reyes Physician [facility] Suresh Wright MD IMG ECHO ORDERABLES [...] signed by Javed MURRAY: TERRI Report ID: [id number] Reading Location: [id number] Procedure Note Javed Reddy MD - 12/19/2024 [...] Javed Reddy M.D. KH: TERRI Report ID: [id number] Reading Location: [id number] IMPRESSION: No acute cardiopulmonary abnormality. Arthur King [...] 10:0 7 AM CDT Arthur Marcelo Fernando COGENERATION TECHNICIAN, HIGH SCHOOL FOREIGN LANGUAGE TUTOR POINT OF CARE TE STING (MANUAL) Final [...] Jenni Sanches D.O. PS: PS Report ID: [id number] Reading Location: [id number] Procedure Note Jenni Sanches, DO - 11/15/2024 [...] Jenni Sanches D.O. PS: PS Report ID: [id number] Reading Location: [id number] IMPRESSION: Mild soft tissue swelling involving the [...] QTC CALCULATION 411 ms EXTERNAL EKG P Jasper 65 degrees EXTERNAL EKG R Jasper 75 degrees EXTERNAL EKG T Jasper 64 degrees EXTERNAL EKG 11/15/2024 9:26 AM CDT Impressions EXTERNAL EKG - 11/16/2024 11:56 AM CDT Normal sinus rhythm Normal ECG When compared with ECG of 13-JUL-2023 09:12, No significant change was found Confirmed by Greg Morgan ([id number]) on 11/16/2024 11:56:11 AM Narrative Procedure Note Greg Morgan MD - 11/16/2024 IMPRESSION: Normal sinus rhythm Normal ECG When compared with ECG of 13-JUL-2023 09:12, No significant change was found Confirmed by rGeg Morgan ([id number]) on 11/16/2024 11:56:11 AM Suresh Wright MD IMG ECG ORDERABLES Final Result EXTERNAL EKG * (ABNORMAL) CBC WITH AUTO DIFFERENTIAL (11/15/2024 9:21 AM CDT) Pathologist [facility] WBC 8.77 4.00 - 12.00 10(3)/mcL 11/15/2024 9:56 AM CDT [facility] RBC 3.90 3.80 - 5.30 10(6)/mcL 11/15/2024 9:56 AM CDT [facility] HEMOGLOBIN (HGB) 12.2 12.0 - 15.8 g/dL 11/15/2024 9:56 AM CDT [facility] HEMATOCRIT (HCT) 36.2 36.0 - 47.0 % 11/15/2024 9:56 AM CDT [facility] MCV 92.8 82.0 - 96.0 fL 11/15/2024 9:56 AM CDT [facility] MCH 31.3 26.0 - 34.0 pg 11/15/2024 9:56 AM CDT [facility] MCHC 33.7 31.0 - 36.0 g/dL 11/15/2024 9:56 AM CDT [facility] PLATELET COUNT 375 140 - 440 10(3)/mcL 11/15/2024 9:56 AM CDT [facility] RDW 12.8 11.8 - 15.5 % 11/15/2024 9:56 AM CDT [facility] MPV 9.9 9.7 - 12.4 fL 11/15/2024 9:56 AM CDT [facility] NEUTROPHILS 58.0 47.0 - 73.0 % 11/15/2024 9:56 AM CDT [facility] LYMPHOCYTES 32.5 18.0 - 42.0 % 11/15/2024 9:56 AM CDT [facility] MONOCYTES 5.1 4.0 - 12.0 % 11/15/2024 9:56 AM CDT [facility] EOSINOPHILS 3.3 0.0 - 5.0 % 11/15/2024 9:56 AM CDT [facility] BASOPHILS 1.1(H) 0.0 - 1.0 % 11/15/2024 9:56 AM CDT [facility] ABSOLUTE NEUTROPHILS 5.08 1.60 - 7.70 10(3)/mcL 11/15/2024 9:56 AM CDT [facility] ABSOLUTE LYMPHOCYTES 2.85 1.30 - 3.20 10(3)/mcL 11/15/2024 9:56 AM CDT [facility] ABSOLUTE MONOCYTES 0.45 0.20 - 1.00 10(3)/mcL 11/15/2024 9:56 AM CDT [facility] ABSOLUTE EOSINOPHIL 0.29 0.00 - 0.40 10(3)/mcL 11/15/2024 9:56 AM CDT [facility] ABSOLUTE BASOPHILS 0.10 0.00 - 0.10 10(3)/mcL 11/15/2024 9:56 AM CDT [facility] NRBC PER 100 WBC 0 11/16/19 9:56 AM CDT [facility] Blood Venipuncture / Unknown 11/15/2024 9:21 AM CDT 11/15/2024 9:45 AM CDT Suresh Wright MD HEMATOLOGY ORDERABLES Fin al Result [facility] #[address] [place] [address] * THYROXINE (T4) FREE (11/15/2024 9:21 AM CDT) T4 FREE 1.0 0.7 - 1.9 ng/dL 11/15/2024 10:29 AM CDT [facility] Blood Venipuncture / Unknown 11/15/2024 9:21 AM CDT 11/15/2024 9:45 AM CDT Result [facility] Suresh Wright MD CHEMISTRY ORDERABLES Jane l Result [facility] [address] [place] [address] * THYROID STIMULATING HORMONE (TSH) (11/15/2024 9:21 AM CDT) TSH 0.370 0.300 - 5.000 mIU/L 11/15/2024 10:29 AM CDT [facility] Blood Venipuncture / Unknown 11/15/2024 9:21 AM CDT 11/15/2024 9:45 AM CDT Suresh Kirt Wright MD CHEMISTRY ORDERABLES Jane l Result [facility] [address] [place] [address] * (ABNORMAL) CMP (COMPREHENSIVE METABOLIC PANEL) (11/15/2024 9:21 AM CDT) SODIUM 137 136 - 145 mmol/L 11/15/2024 10:14 AM CDT [facility] POTASSIUM 4.4 3.5 - 5.1 mmol/L 11/15/2024 10:14 AM CDT [facility] CHLORIDE 103 98 - 107 mmol/L 11/15/2024 10:14 AM CDT [facility] CO2, VENOUS 25 22 - 30 mmol/L 11/15/2024 10:14 AM CDT [facility] ANION GAP 13.4 <18.0 mmol/L 11/15/2024 10:14 AM CDT [facility] GLUCOSE 208(H) 70 - 99 mg/dL 11/15/2024 10:14 AM CDT [facility] BUN 15 5 - 18 mg/dL 11/15/2024 10:14 AM CDT [facility] CREATININE, BLOOD 0.75 0.60 - 1.00 mg/dL 11/15/2024 10:14 AM CDT [facility] BUN/CREATININE RATIO 20 12 - 20 ratio 11/15/2024 10:14 AM CDT [facility] TOTAL PROTEIN 7.0 6.0 - 8.0 g/dL 11/15/2024 10:14 AM CDT [facility] ALBUMIN 4.1 3.5 - 5.0 g/dL 11/15/2024 10:14 AM CDT [facility] A/G RATIO 1.4 1.0 - 2.2 11/15/2024 10:14 AM CDT [facility] CALCIUM 8.9 8.7 - 10.5 mg/dL 11/15/2024 10:14 AM CDT [facility] T BILI 0.1(L) 0.2 - 1.2 mg/dL 11/15/2024 10:14 AM CDT [facility] SGOT (AST) 18 <43 U/L 11/15/2024 10:14 AM CDT [facility] SGPT (ALT) 10 <56 U/L 11/15/2024 10:14 AM CDT [facility] ALKALINE PHOSPHATASE 79 40 - 150 U/L 11/15/2024 10:14 AM CDT [facility] IS THE PATIENT REQUIRED TO BE FASTING? No 11/15/2024 10:14 AM CDT [facility] GFR, ESTIMATED >60 >=60 11/15/2024 10:14 AM CDT [facility] Comment: Creatinine Clearance is the preferred criteria for selecting drug dose adjustments in renally impaired patients. The GFR is provided as additional pertinent clinical information. GFR is reported in mL/min/1.73 sq m. Calculation based on the Chronic Kidney Disease Epidemiology Collaboration (CKD- EPI) equation refit without adjustment for race. GFR, EST. >60 >=60 025 10:14 AM CDT [facility] GFR, EST. NONAFRICAN >60 >=60 11/15/2024 10:14 AM CDT [facility] Blood Venipuncture / Unknown 11/15/2024 9:21 AM CDT 11/15/2024 9:45 AM CDT us Suresh Wright MD CHEMISTRY ORDERABLES Jane l Result [facility] [address] [place] [address] * (ABNORMAL) POCT GLYCOSYLATED HEMOGLOBIN (10/10/2024 10:02 AM JUKE BOX SERVICER) HGB-A1C 7.3(A) 4 - 6 % Blood 10/10/2024 10:0 2 AM JUKE BOX SERVICER Luzmaria Cates MD POINT OF CARE TESTING (MANUAL) F inal Result * HM DILATED EYE EXAM (04/18/2023 12:00 AM CDT) 04/18/2023 us Provider Scan PROCEDURE/MINOR SURGICAL ORDERAB LES Final Result SCAN from Last 3 Months or Most Recently Relevant to Health Maintenance Insurance MEDICAID [employer] Care Teams Emergency Preparedness Coordinator Relationship Specialty Start Date End Date Arthur King APRN, CNP #2 [facility] [address] [place] [address] PCP - General Advanced Practice Nurse 12/24/22 Luzmaria Cates MD #2 [facility] [address] [place] [address] Consulting Physician Endocrinology 02/20/24 Henri West MD #2 [facility] [address] [place] [address] Consulting Physician General Surgery 07/20/24 Maura Lenz, COGENERATION TECHNICIAN, HIGH SCHOOL FOREIGN LANGUAGE TUTOR [address] [place] [address] Nurse Practitioner Advanced Practice Nurse 12/07/24
--- OUTSIDE RECORDS SUMMARY | 2024-12-31 02:16 | XMS_ITS | Encounter Summary ---
Author Organization [facility] Address [address] [facility] [place] [address] Phone Care Team Providers Care Production Stage Manager Name Role Phone Arthur King APRN, AUTOMATIC BEADING LATHE OPERATOR Primary Care Pr ovider Luzmaria Cates MD Unavailable Henri West MD Unavailable [phone] Maura Lenz APRN, AUTOMATIC BEADING LATHE OPERATOR Unavailable [phone] Encounter Details Date Type Department Care Team (Late st Contact Info) Description 11/17/2024 Results Follow-Up [facility] - Family Medicine - [place] #2 [facility] [place] [address] Suresh Wright MD #[address] [address] XR HAND 3 OR MORE VIEWS RIGHT Social History Tobacco Use Types Packs/Day Years Used Date Smoking Tobacco: Never Smokeless Tobacco: Never Comments:Former cigarette us e; stopped about 07/2023 Currently uses vape Alcohol Use Standard Drinks/Week Comments Not Currently 0 (1 standard drink = 0.6 oz pur e alcohol) [facility] Utilities Answer Date Recorded In the past 12 months has e [employer], gas, oil, or water [employer] threatened to shut off services in your [...] often do you attend chur ch or uatsdin services? Patient declined 11/13/2024 Do you belong to any clubs o r organizations such as gnosticist groups, unions, fraternal or athletic groups, or [...] Total Score - Questions 1-9 0 08/06 [facility] - [...] were you homeless or living in a mcfp (including now)? Patient declined 11/13/2024 Education Answer [...] Description 01/07/2025 9:30 AM CDT Office Visit [facility] - Endocrinology [facility] #2 [place] [address] Luzmaria Cates MD #2 [facility] [address] [place] [address] 01/11/2025 1:30 PM CDT [facility]ointment [facility] Ul[facility] 1 [place] [address] Suresh Wright MD #2 [facility] [address] [place] [address] Discharge Disposition: Discharged to home or Selfcare 01/14/2025 8:30 AM CDT [facility] Visit [facility] #2 [facility] [address] Arthur King APRN, AUTOMATIC BEADING LATHE OPERATOR #[address] [place] [address] [address] documented as of this encounter Visit Diagnoses Not on filedocumented in this encounter Additional Health Concerns Infection Onset Date Last Indicated Resolved Time Respiratory Rule-Out 12/13/2024 12/13/2024 025 10:07 AM CDT COVID - 19 12/13/2024 12/13/2024 12/13/2024 10:0 7 AM CDT Assessment Noted Time PHQ-9 Depression Total Score: 0 08/28/20 8:02 AM SANDING SUPERVISOR documented as of this encounter Care Teams Production Stage Manager Relationship Specialty Start Date End Date Arthur King APRN, AUTOMATIC BEADING LATHE OPERATOR #[address] [place] [address] [address] PCP - General Advanced Practice Nurse 12/24/22 Luzmaria Cates MD #[address] [place] [address] [address] Consulting Physician Endocrinology 02/20/24 Henri West MD #[address] [place] [address] [address] Consulting Physician General Surgery 07/20/24 Maura Lenz APRN, AUTOMATIC BEADING LATHE OPERATOR #[address] [place] [address] Nurse Practitioner Advanced Practice Nurse 12/07/24 documented as of this encounter
--- OUTSIDE RECORDS SUMMARY | 2024-12-31 02:16 | XMS_ITS | Encounter Summary ---
Author Organization [facility] Address [address] [facility] [place] [address] Phone Care Team Providers Care Grain Picker Name Role Phone Arthur King APRN, PACKAGING DESIGN ENGINEER Primary Care Pr ovider Luzmaria Cates MD Unavailable Henri West MD Unavailable [phone] Maura Lenz APRN, PACKAGING DESIGN ENGINEER Unavailable [phone] Encounter Details Date Type Department Care Team (Late st Contact Info) Description 12/21/2024 Results Follow-Up [facility] - Family Medicine - [place] #2 [place] [address] Arthur King APRN, PACKAGING DESIGN ENGINEER #[address] [address] XR CHEST 2 VIEWS Social History Tobacco Use Types Packs/Day Years Used Date Smoking Tobacco: Never Smokeless Tobacco: Never Comments:Former cigarette us e; stopped about 07/2023 Currently uses vape Alcohol Use Standard Drinks/Week Comments Not Currently 0 (1 standard drink = 0.6 oz pur e alcohol) [facility] Utilities Answer Date Recorded In the past 12 months has [employer], gas, oil, or water [employer] threatened to shut off services in your home? Patient declined 12/12/2024 Social Connection and Isolation Panel [NHANES] A nswer Date Recorded In a typical week, how many times do you talk on the phone with family, friends, or neighbors? Patient declined 12/12/2024 How often do you get togethe r with friends or relatives? Patient declined 12/12/2024 How often do you attend pentecostal or faith serv ices? Patient declined 12/12/2024 Do you belong to any clubs o r organizations such as pentecostal groups, unions, fraternal or athletic groups, or [...] Total Score - Questions 1-9 0 08/06 [facility] ional Health - Occupational [...] were you homeless or living in a longterm (including now)? Patient declined 12/12/2024 Education Answer [...] Office Visit [facility] #2 [place] [address] Luzmaria Cates MD #2 [facility] [address] [place] [address] 01/11/2025 1:30 PM CDT [facility] 1 [place] [address] Suresh Wright MD #2 [facility] [address] [place] [address] Discharge Disposition: Discharged to home or Selfcare 01/14/2025 8:30 AM CDT Office Visit [facility] #2 [place] [address] Arthur King APRN, PACKAGING DESIGN ENGINEER #[address] [place] [address] [address] documented as of this encounter Visit Diagnoses Not on filedocumented in this encounter Additional Health Concerns Assessment Noted Time PHQ-9 Depression Total Score: 0 08/28/20 8:02 AM PAINTING MACHINE OPERATOR documented as of this encounter Care Teams Grain Picker Relationship Specialty Start Date End Date Arthur King, OFFICER LIEUTENANT, PACKAGING DESIGN ENGINEER #[address] [place] [address] [address] PCP - General Advanced Practice Nurse 12/24/22 Luzmaria Cates MD #[address] [address] Consulting Physician Endocrinology 02/20/24 Henri West MD #[address] [address] Consulting Physician General Surgery 07/20/24 Maura Lenz APRN, PACKAGING DESIGN ENGINEER #[address] [place] [address] Nurse Practitioner Advanced Practice Nurse 12/07/24 documented as of this encounter
--- OUTSIDE RECORDS SUMMARY | 2024-12-31 02:16 | XMS_ITS | Encounter Summary ---
Author Organization [facility] Address [address] [facility] [place] [address] Phone Care Team Providers Care Cut Off Machine Helper Name Role Phone Arthur King APRN, SPEEDER TENDER Primary Care Pr ovider Luzmaria Cates MD Unavailable Henri West MD Unavailable [phone] Maura Lenz APRN, SPEEDER TENDER Unavailable [phone] Reason for Visit * Reason Comments Medication Refill Encounter Details Date Type Department Care Team (Late st Contact Info) Description 04/06/2023 Refill [facility] - Family Medicine - [place] #2 [place] [address] Atrhur King APRN, SPEEDER TENDER #[address] [address] Medication Refill Social History Tobacco Use Types [...] 02/23/23 Office Visit Arthur King APRN, SHINE [facility] Mario 12/24/22 Office Visit Arthur King APRN, SHINE [facility] Showing recent visits within past 365 days [...] Visit [facility] - Endocrinology - [place] #2 [place] [address] Luzmaria Cates MD #2 [facility] [address] [place] [address] 01/11/2025 1:30 PM CDT [facility]ointment [facility] Ul[facility]ound 1 [place] [address] Suresh Wright MD #2 [facility] [address] [place] [address] Discharge Disposition: Discharged to home or Selfcare 01/14/2025 8:30 AM CDT Office Visit [facility] - Family [facility] #2 [place] [address] Arthur King APRN, SPEEDER TENDER #[address] [address] documented as of this encounter Visit Diagnoses [...] documented as of this encounter Care Teams Cut Off Machine Helper Relationship Specialty Start Date End Date Arthur King APRN, SPEEDER TENDER #[address] [address] PCP - General Advanced Practice Nurse 12/24/22 Luzmaria Cates MD #[address] [address] Consulting Physician Endocrinology 02/20/24 Henri West MD #[address] [address] Consulting Physician General Surgery 07/20/24 Maura Lenz APRN, SPEEDER TENDER #2 [facility] [place] [address] Nurse Practitioner Advanced Practice Nurse 12/07/24 documented as of this encounter
--- OUTSIDE RECORDS SUMMARY | 2024-12-31 02:16 | XMS_ITS | Encounter Summary ---
Author Organization [facility] Address [address] [facility] [place] [address] Phone Care Team Providers Care Dry Kiln Burner Name Role Phone Arthur King APRN, CARBIDE TOOL MAKER Primary Care Pr ovider Luzmaria Cates MD Unavailable Henri West MD Unavailable [phone] Maura Lenz FLASH OVEN OPERATOR, CARBIDE TOOL MAKER Unavailable [phone] Reason for Visit * Reason Comments Medication Refill Encounter Details Date Type Department Care Team (Late st Contact Info) Description 08/10/2023 Refill [facility] - Family Medicine - [place] #2 [place] [address] Vandana Jacques APRN, CARBIDE TOOL MAKER #[address] [address] Medication Refill Social History Tobacco [...] Coronavirus/COVID-19? No / Unsure 07/15/2023 10:17 AM TUNE UP MECHANIC documented as of this encounter Miscellaneous Notes * Telephone Encounter - Lyn Currie RN - 05/18/2024 3:43 PM CDT No refill to cancel [facility]/pharmacy #[id number] - [place], [place] - [address] [facility] [address] [facility] [address] Hours: Not open 24 hours Outpatient Medication [...] Receipt confirmed by pharmacy (08/10/2023 10:30 AM TUNE UP MECHANIC) E-Cancel Status: Request denied by pharmacy (05/17/2024 [...] 05/12/23 Office Visit Vandana Jacques APRN, CNP [facility] 02/23/23 Office Visit Arthur King APRN, SHINE [facility] Showing recent visits within past 182 days and meeting all other requirements Future Appointments No visits were found meeting these conditions. Showing future appointments within next 90 days and meeting all other requirements Passed - Has an encounter in the past 6 months with a depression or anxiety visit diagnosis UP MECHANIC documented in this encounter Plan of Treatment Upcoming Encounters Date Type Department Care Team (Late st Contact Info) Description 01/07/2025 9:30 AM CDT Office Visit [facility] Medical [facility] - Endocrinology [facility] #2 [place] [address] Luzmaria Cates MD #2 [facility] [address] [place] [address] 01/11/2025 1:30 PM CDT Appointment [facility] Ultrasound 1 [place] [address] Suresh Wright MD #2 [facility] [address] [place] [address] Discharge Disposition: Discharged to home or Selfcare 01/14/2025 8:30 AM CDT Office Visit [facility] Medical [facility] - Family Medicine [facility] #2 [place] [address] Arthur King APRN, SHINE #2 [facility] [address] [place] [address] documented as of this encounter Visit Diagnoses [...] documented as of this encounter Care Teams Dry Kiln Burner Relationship Specialty Start Date End Date Arthur King APRN, CARBIDE TOOL MAKER #2 [facility] [address] [place] [address] PCP - General Advanced Practice Nurse 12/24/22 Luzmaria Cates MD #2 [facility] [address] [place] [address] Consulting Physician Endocrinology 02/20/24 Henri West MD #2 [facility] [address] [place] [address] Consulting Physician General Surgery 07/20/24 Maura Lenz FLASH OVEN OPERATOR, CARBIDE TOOL MAKER #2 [place] [address] Nurse Practitioner Advanced Practice Nurse 12/07/24 documented as of this encounter
--- OUTSIDE RECORDS SUMMARY | 2024-12-31 02:16 | XMS_ITS | Referral Summary ---
Author Organization [facility] Medical Office Building [address] Address [address] [place] [address] Care Team Providers Care Business Team Leader Name Role Phone Arthur King NP Primary [...] 10/14/2022 Assessment & Plan (10/14/2022 1:17 PM RAIL TRACK MAINTAINER): BMI is acceptable for this patient. Discussed healthy diet and importance of regular physical activity (20- 30min/day, 150min/wk). Physically active at work walking all day. Insulin pump in place 03/18/2022 Assessment & Plan (10/14/2022 1:18 PM RAIL TRACK MAINTAINER): Changed CF from 75 to 70. All other settings unchanged. Aware to send [email or web address] message if seeing patterns of uncontrolled BS. Assessment & Plan (03/18/2022 2:17 PM CDT): BR 0.5 CR 15 Continue same other settings for now. Migraine 09/13/2019 Depression 09/13/2019 Type 1 diabetes mellitus with hyperglycemia 10/07 Assessment & Plan (10/14/2022 1:19 PM RAIL TRACK MAINTAINER): Please call to set up diabetic eye exam. Changed CF from 75 to 70. All other settings unchanged. Aware to send [email or web address] message if seeing patterns of uncontrolled BS. [...] on file Legal Sex Female 8:13 AM RAIL TRACK MAINTAINER Gender Identity Female 01/01/2022 10:11 AM CDT Sexual Orientation Straight 01/01/2022 10 :11 AM CDT Last Filed Vital Signs Vital Sign Reading Time Taken Comments Blood Pressure 102/72 10/14/2022 11:28 AM RAIL TRACK MAINTAINER Pulse 99 10/14/2022 11:28 AM RAIL TRACK MAINTAINER Temperature - - Respiratory Rate 16 10/14/2022 11:28 AM RAIL TRACK MAINTAINER Oxygen Saturation 100% 02/05/2010 6:50 AM CDT Inhaled Oxygen Concentration - - Weight 57 kg (125 lb 10.6 oz) 10/14/2022 11:28 A M RAIL TRACK MAINTAINER Height 167.6 cm (5' 5.98 ) 10/14/2022 11:[address] Body Mass Index 20.29 10/14/2022 11:28 AM RAIL TRACK MAINTAINER Plan of Treatment Not on file Procedures Procedure Name Priority Date/Time Associated Diagnosis Comments HM DIABETES EYE EXAM Routine 04/01/2023 7:29 AM CDT POCT HEMOGLOBIN A1C Routine 10/14/2022 1 1:39 AM RAIL TRACK MAINTAINER Type 1 diabetes mellitus with hyperglycemia (HCC) [...] * POCT hemoglobin A1c (10/14/2022 11:39 AM RAIL TRACK MAINTAINER) Hemoglobin A1C, POC 6.9 % Blood 10/14/2022 11:3 9 AM RAIL TRACK MAINTAINER Carly Murrieta NP POINT OF CARE TEST [...] PM CDT 03/18/2022 5:[address] [facility] Alison MIRELES LAB BLOOD ORDERABLES Fi nal Result Performing Organization Address [facility] de Phone Number [facility] [address] [address] [facility] [place] [address] * Albumin Creatinine Ratio, Urine (03/18/2022 2:40 PM CDT) Albumin Ur 21.7 mg/L [facility] Comment: Interpretive Data No reference range established. Current interpretive data was last revised 2019. Creatinine Ur 232.0 mg/dL [facility] Comment: Interpretive Data No reference range established. Current interpretive data was last revised 2019. Albumin Creatinine Ratio, Ur 9 1 - 29 mg/g [facility] Urine 03/18/2022 2:40 PM CDT 03/18/2022 5:[address] [facility] Alison MIRELES LAB URINE ORDERABLES Fi nal Result Performing Organization Address [facility] Co de Phone Number [facility] [address] [address] [facility] [place] [address] * TSH (03/18/2022 2:40 PM CDT) Thyroid Stimulating Hormone 0.70 0.30 - 4.20 mcIUnit/mL PHIL Blood 03/18/2022 2:40 PM CDT 03/18/2022 5:[address] [facility] Alison MIRELES LAB BLOOD ORDERABLES Fi nal Result PHIL [phone] [address] Department of Laboratories [place] [phone] * Lipid panel (03/18/2022 2:40 PM CDT) [...] LAB BLOOD ORDERABLES Fi nal Result PHIL [address] Luc[address] Torres Department [place] [address] from Last 3 Months or Most Recently Relevant to Health Maintenance Insurance [facility] Care Teams Business Team Leader Relationship Specialty Start Date End Date Arthur King NP [address] [address] PCP - General Nurse Practitioner 02/09/24
--- OUTSIDE RECORDS SUMMARY | 2024-12-31 02:16 | XMS_ITS | Encounter Summary ---
Author Organization [facility] Address [address] [place] [address] Phone Care Team Providers Care Accounts Receivable Supervisor Name Role Phone Arthur King APRN, UNLOAD ASSOCIATE Primary Care Pr ovider Luzmaria Cates MD Unavailable Henri West MD Unavailable [phone] Maura Lenz APRN, UNLOAD ASSOCIATE Unavailable [phone] Encounter Details Date Type Department Care Team (Late st Contact Info) Description 11/18/2024 Results Follow-Up [facility] - Family Medicine - [place] #2 [place] [address] Suresh Wright MD #[address] [address] THYROID STIMULATING HORMONE (TSH), THYROXINE (T4) FREE, CMP (COMPREHENSIVE METABOLIC PANEL), Additional followed-up results: 2 Social History Tobacco Use Types Packs/Day Years Used Date Smoking Tobacco: Never Smokeless Tobacco: Never Comments:Former cigarette us e; stopped about 07/2023 Currently uses vape Alcohol Use Standard Drinks/Week Comments Not Currently 0 (1 standard drink = 0.6 oz pur e alcohol) [facility] Utilities Answer Date Recorded In the [...] How often do you attend chur or episcopal services? Patient declined 11/13/2024 Do you belong to any clubs o r organizations such as scientologist groups, unions, fraternal or athletic groups, or [...] Total Score - Questions 1-9 0 08/06 [facility] - Occupational Stress Questionnaire Answer Date [...] time in the past [address] [facility], were you homeless or living in a care home (including now)? Patient declined 11/13/2024 Education [...] Office Visit [facility] - Endocrinology [facility] #2 [place] [address] Luzmaria Cates MD #2 [facility] [address] [place] [address] 01/11/2025 1:30 PM CDT Appointment [facility] Ultrasound 1 [place] [address] Suresh Wright MD #2 [facility] [address] [place] [address] Discharge Disposition: Discharged to home or Selfcare 01/14/2025 8:30 AM CDT Office Visit [facility] - Family Medicine [facility] #[address] [place] [address] Arthur King APRN, UNLOAD ASSOCIATE [address] [address] documented as of this encounter Visit Diagnoses Not on filedocumented in this encounter Additional Health Concerns Infection Onset Date Last Indicated Resolved Time Respiratory Rule-Out 12/13/2024 12/13/2024 025 10:07 AM CDT COVID - 19 12/13/2024 12/13/2024 12/13/2024 10:0 7 AM CDT Assessment Noted Time PHQ-9 Depression Total Score: 0 08/28/20 8:02 AM DOUGH BRAKE MACHINE OPERATOR documented as of this encounter Care Teams Accounts Receivable Supervisor Relationship Specialty Start Date End Date Arthur King APRN, UNLOAD ASSOCIATE #[address] [address] PCP - General Advanced Practice Nurse 12/24/22 Luzmaria Cates MD #[address] [address] [address] Consulting Physician Endocrinology 02/20/24 Henri West MD #[address] [address] Consulting Physician General Surgery 07/20/24 Maura Lenz APRN, UNLOAD ASSOCIATE #2 [facility] [place] [address] Nurse Practitioner Advanced Practice Nurse 12/07/24 documented as of this encounter
--- OUTSIDE RECORDS SUMMARY | 2024-12-31 02:16 | XMS_ITS | Encounter Summary ---
Author Organization [facility] Address [address] [facility] [place] [address] Phone Care Team Providers Care Customer Associate Name Role Phone Arthur King APRN, BOILERMAKER INDUSTRIAL BOILERS Primary Care Pr ovider Luzmaria Cates MD Unavailable Henri West MD Unavailable [phone] Maura Lenz APRN, BOILERMAKER INDUSTRIAL BOILERS Unavailable [phone] Encounter Details Date Type Department Care Team (Late st Contact Info) Description 11/16/2024 Results Follow-Up [facility] - Family Medicine - [place] #2 [place] [address] Suresh Wright MD #[address] [address] EKG 12 LEAD Social History Tobacco Use Types Packs/Day Years Used Date Smoking Tobacco: Never Smokeless Tobacco: Never Comments:Former cigarette us e; stopped about 07/2023 Currently uses vape Alcohol Use Standard Drinks/Week Comments Not Currently 0 (1 standard drink = 0.6 oz pur e alcohol) [facility] Utilities Answer Date Recorded In the past 12 months has [employer], gas, oil, or water [employer] threatened to shut off services in your [...] often do you attend chur ch or baptism services? Patient declined 11/13/2024 Do you belong to any clubs o r organizations such as adventism groups, unions, fraternal or athletic groups, or [...] Total Score - Questions 1-9 0 08/06 [facility] Occupat ional [facility] - Occupational Stress Questionnaire Answer Date Recorded [...] were you homeless or living in a penitentiary (including now)? Patient declined 11/13/2024 Education Answer [...] Office Visit [facility]ocrinology [facility] #2 [place] [address] Luzmaria Cates MD #2 [facility] [address] [place] [address] 01/11/2025 1:30 PM CDT [facility]ointment [facility] Ul[facility]ound 1 [place] [address] Suresh Wright MD #2 [facility] [address] [place] [address] Discharge Disposition: Discharged to home or Selfcare 01/14/2025 8:30 AM CDT [facility] Family Medicine [facility] #2 [place] [address] Arthur King APRN, BOILERMAKER INDUSTRIAL BOILERS #[address] [address] documented as of this encounter Visit Diagnoses Not on filedocumented in this encounter Additional Health Concerns Infection Onset Date Last Indicated Resolved Time Respiratory Rule-Out 12/13/2024 12/13/2024 025 10:07 AM CDT COVID - 19 12/13/2024 12/13/2024 12/13/2024 10:0 7 AM CDT Assessment Noted Time PHQ-9 Depression Total Score: 0 08/28/20 8:02 AM SHELL ASSEMBLER documented as of this encounter Care Teams Customer Associate Relationship Specialty Start Date End Date Arthur King APRN, BOILERMAKER INDUSTRIAL BOILERS #[address] [address] PCP - General Advanced Practice Nurse 12/24/22 Luzmaria Cates MD #[address] [address] Consulting Physician Endocrinology 02/20/24 Henri West MD #[address] [address] Consulting Physician General Surgery 07/20/24 Maura Lenz APRN, BOILERMAKER INDUSTRIAL BOILERS #2 [place] [address] Nurse Practitioner Advanced Practice Nurse 12/07/24 documented as of this encounter
--- OUTSIDE RECORDS SUMMARY | 2024-12-31 02:16 | XMS_ITS | Encounter Summary ---
Author Organization [facility] Address [address] [facility] [place] [address] Phone Care Team Providers Care Junior Administrative Assistant Name Role Phone Arthur King OIL LEASE OPERATOR, AIR TWIST OPERATOR Primary Care Pr ovider Luzmaria Cates MD Unavailable Henri West MD Unavailable [phone] Maura Lenz OIL LEASE OPERATOR, AIR TWIST OPERATOR Unavailable [phone] Reason for Referral * Radiology Services (Routine) - Closed Specialty Diagnoses / Procedures Referred By Contac t Referred To Contact Radiology Diagnoses Mass of left breast, unspecified quadrant Procedures DOMINIQUE BREAST SURGICAL SPECIMEN POST BIOPSY Henri West MD #[address] [address] Phone: tel: fax: Referral ID Status Reason Start Date Expiration Date Visits Re quested Visits Authorized [id number] Closed 07/26/2024 1 1 OLL ANALYST Encounter Details Date Type Department Care Team (Late st Contact Info) Description 07/26/2024 [facility] 1 [place] [address] Henri West MD #[address] [address] Mass of left breast, unspecified quadrant (Primary Dx) Social History Tobacco Use Types Packs/Day Years Used Date Smoking Tobacco: Every Day Smokeless Tobacco: Never Comments:Former cigarette us e; stopped about 07/2023 Currently uses vape Alcohol Use Standard Drinks/Week Comments Not Currently 0 (1 standard drink = 0.6 oz pur e alcohol) [facility] Utilities Answer Date Recorded In the [...] often do you attend chur ch or orthodox services? Never 05/17/2024 Do you belong to any clubs o r organizations such as sikh groups, unions, fraternal or athletic groups, or [...] Total Score - Questions 1-9 6 12/05 [facility] - Occupational [...] any time in the past 12 [facility] were you [facility] or living in a skilled nursing (including now)? No 05/17/2024 Education Answer Date [...] Endocrinology - Mario #[address] [place] [address] Luzmaria Cates MD #2 [address] [place] [address] [address] 01/11/2025 1:30 PM CDT Appointment [facility] Ultrasound 1 [place] [address] Suresh Wright MD #[address] [address] Discharge Disposition: Discharged to home or Selfcare 01/14/2025 8:30 AM CDT [facility] - Family Medicine - [place] #2 [place] [address] Arthur King APRN, AIR TWIST OPERATOR #[address] [address] Scheduled Orders Name Type Priority Associated Diagnoses [...] documented as of this encounter Care Teams Junior Administrative Assistant Relationship Specialty Start Date End Date Arthur King, CALLY, AIR TWIST OPERATOR #[address] [address] PCP - General Advanced Practice Nurse 12/24/22 Luzmaria Cates MD #[address] [address] Consulting Physician Endocrinology 02/20/24 Henri West MD #[address] [place] [address] [address] Consulting Physician General Surgery 07/20/24 Maura Lenz, OIL LEASE OPERATOR, AIR TWIST OPERATOR #2 [place] [address] Nurse Practitioner Advanced Practice Nurse 12/07/24 documented as of this encounter
--- OUTSIDE RECORDS SUMMARY | 2024-12-31 02:16 | XMS_ITS | Clinical Summary ---
Author Organization [facility] Medical Office Building B Address [address] [place] [address] Care Team Providers Care Outdoor Power Equipment Mechanic Name Role Phone Arthur King NP Primary [...] 10/14/2022 Assessment & Plan (10/14/2022 1:17 PM NURSE DISCHARGE PLANNER): BMI is acceptable for this patient. Discussed healthy diet and importance of regular physical activity (20- 30min/day, 150min/wk). Physically active at work walking all day. Insulin pump in place 03/18/2022 Assessment & Plan (10/14/2022 1:18 PM NURSE DISCHARGE PLANNER): Changed CF from 75 to 70. All other settings unchanged. Aware to send [employer] message if seeing patterns of uncontrolled BS. Assessment & Plan (03/18/2022 2:17 PM CDT): BR 0.5 CR 15 Continue same other settings for now. Migraine 09/13/2019 Depression 09/13/2019 Type 1 diabetes mellitus with hyperglycemia 10/07 Assessment & Plan (10/14/2022 1:19 PM NURSE DISCHARGE PLANNER): Please call to set up diabetic eye exam. Changed CF from 75 to 70. All other settings unchanged. Aware to send [employer] message if seeing patterns of uncontrolled BS. [...] on file Legal Sex Female 8:13 AM NURSE DISCHARGE PLANNER Gender Identity Female 01/01/2022 10:11 AM CDT Sexual Orientation Straight 01/01/2022 10 :11 AM CDT Obstetrics History Last Filed Vital Signs Vital Sign Reading Time Taken Comments Blood Pressure 102/72 10/14/2022 11:28 AM NURSE DISCHARGE PLANNER Pulse 99 10/14/2022 11:28 AM NURSE DISCHARGE PLANNER Temperature - - Respiratory Rate 16 10/14/2022 11:28 AM NURSE DISCHARGE PLANNER Oxygen Saturation 100% 02/05/2010 6:50 AM CDT Inhaled Oxygen Concentration - - Weight 57 kg (125 lb 10.6 oz) 10/14/2022 11:28 A M NURSE DISCHARGE PLANNER Height 167.6 cm (5' 5.98 ) 10/14/2022 11:[address] Body Mass Index 20.29 10/14/2022 11:28 AM NURSE DISCHARGE PLANNER Plan of Treatment Health Maintenance Due Date [...] HEMOGLOBIN A1C Routine 10/14/2022 1 1:39 AM NURSE DISCHARGE PLANNER Type 1 diabetes mellitus with hyperglycemia (HCC) [...] * POCT hemoglobin A1c (10/14/2022 11:39 AM NURSE DISCHARGE PLANNER) Hemoglobin A1C, POC 6.9 % Blood 10/14/2022 11:3 9 AM NURSE DISCHARGE PLANNER Carly Murrieta NP POINT OF CARE TEST [...] ORDERABLES Fi nal Result Performing Organization Address [facility] Co de Phone Number PHIL [phone] [facility] [place] [address] * Albumin Creatinine Ratio, Urine (03/18/2022 2:40 PM CDT) Albumin Ur 21.7 mg/L [facility] Comment: Interpretive Data No reference range established. Current interpretive data was last revised 2019. Creatinine Ur 232.0 mg/dL [facility] Comment: Interpretive Data No reference range established. Current interpretive data was last revised 2019. Albumin Creatinine Ratio, Ur 9 1 - 29 mg/g [facility] Urine 03/18/2022 2:40 PM CDT 03/18/2022 5:37 PM CDT Result [facility] Alison [facility] URINE ORDERABLES Fi nal Result Performing Organization Address [facility] Co de Phone Number [facility] [address] [facility] [place] [address] * TSH (03/18/2022 2:40 PM CDT) Thyroid Stimulating Hormone 0.70 0.30 - 4.20 mcIUnit/mL [facility] Blood 03/18/2022 2:40 PM CDT 03/18/2022 5:37 PM CDT Result [facility] Alison [facility] BLOOD ORDERABLES Fi nal Result Performing Organization Address [facility] Co de Phone Number [facility] [address] [facility] [place] [address] * Lipid panel (03/18/2022 2:40 PM CDT) [...] [facility] LAB BLOOD ORDERABLES nal Result PHIL [phone] [address] [place] [address] from Last 3 Months or Most Recently Relevant to Health Maintenance Insurance [facility] Care Teams Outdoor Power Equipment Mechanic Relationship Specialty Start Date End Date Arthur King NP 2 [facility] [place] [address] [address] PCP - General Nurse Practitioner 02/09/24
--- OUTSIDE RECORDS SUMMARY | 2024-12-31 02:16 | XMS_ITS | Encounter Summary ---
Author Organization [facility] Address [address] [facility] [place] [address] Phone Care Team Providers Care Manager City Name Role Phone Arthur King APRN, DENTAL HYGIENE PROFESSOR Primary Care Pr ovider Luzmaria Cates MD Unavailable Henri West MD Unavailable [phone] Maura Lenz APRN, DENTAL HYGIENE PROFESSOR Unavailable [phone] Reason for Visit * Reason Comments Medication Refill Encounter Details Date Type Department Care Team (Late st Contact Info) Description 11/22/2023 Refill [facility] - Family Medicine - [place] [address] [place] [address] Arthur King APRN, DENTAL HYGIENE PROFESSOR #[address] [address] Medication Refill Social History Tobacco Use Types [...] PM CDT Medication(s) refilled and [facility] Chronic Medication Refill Standing Order for Pediatricand [...] 06/07/23 Office Visit Arthur King APRN, [facility] Mario Showing recent visits within past 182 days and meeting all other requirements Future Appointments No visits were found meeting these conditions. Showing future appointments within next 90 days and meeting all other requirements documented in this encounter Plan of Treatment Upcoming Encounters Date Type Department Care Team (Late st Contact Info) Description 01/07/2025 9:30 AM CDT Office Visit [facility] - [facility]2 [place] [address] Luzmaria Ctaes MD #2 [facility] [address] [place] [address] 01/11/2025 1:30 PM CDT [facility] [address] [place] [address] Suresh Wright MD #2 [facility] [address] [place] [address] Discharge Disposition: Discharged to home or Selfcare 01/14/2025 8:30 AM CDT Office Visit [facility] - [facility] [address]2 [place] [address] Arthur King APRN, DENTAL HYGIENE PROFESSOR #2 [facility] [address] [place] [address] documented as of this encounter Visit Diagnoses Not on filedocumented in this encounter Additional Health Concerns Infection Onset Date Last Indicated Resolved Time Respiratory Rule-Out 12/13/2024 12/13/2024 025 10:07 AM CDT COVID - 19 12/13/2024 12/13/2024 12/13/2024 10:0 7 AM CDT Assessment Noted Time PHQ-9 Depression Total Score: 6 12/25/19 23 8:32 AM CDT documented as of this encounter Care Teams Manager City Relationship Specialty Start Date End Date Arthur King APRN, DENTAL HYGIENE PROFESSOR #[address] [place] [address] [address] PCP - General Advanced Practice Nurse 12/24/22 Luzmaria Cates MD #[address] [address] [address] Consulting Physician Endocrinology 02/20/24 Henri West MD #[address] [address] [address] Consulting Physician General Surgery 07/20/24 Maura Lenz APRN, DENTAL HYGIENE PROFESSOR #[address] [place] [address] Nurse Practitioner Advanced Practice Nurse 12/07/24 documented as of this encounter
--- OUTSIDE RECORDS SUMMARY | 2024-12-31 02:16 | XMS_ITS | Encounter Summary ---
Author Organization [facility] Address [address] [facility] [place] [address] Phone Care Team Providers Care Senior Clinical Data Manager Name Role Phone Arthur King OPERATIONS DISPATCHER, SEALER AIRCRAFT Primary Care Pr ovider Luzmaria Cates MD Unavailable Henri West MD Unavailable [phone] Maura Lenz OPERATIONS DISPATCHER, SEALER AIRCRAFT Unavailable [phone] Reason for Referral * Radiology Services (Routine) - Authorized Specialty Diagnoses / Procedures Referred By Contac t Referred To Contact Radiology Diagnoses Abnormal mammogram Procedures DOMINIQUE DIAG LEFT UNILATERAL DIGITAL W CAD W RAFFI Suresh Wright MD [address] [address] Phone: tel: fax: Referral ID Status Reason Start Date Expiration Date V isits Requested Visits Authorized [id number] Authorized 11/16/2024 1 1 * Radiology Services (Routine) - Authorized Specialty Diagnoses / Procedures Referred By Contac t Referred To Contact Radiology Diagnoses Abnormal mammogram Procedures DOMINIQUE BREAST LIMITED Suresh Wright MD #[address] [address] Phone: tel: fax: Referral ID Status Reason Start Date Expiration Date V isits Requested Visits Authorized [id number] Authorized 11/16/2024 1 1 Encounter Details Date Type Department Care Team (Late st Contact Info) Description 11/16/2024 Transcribe Orders [facility] Mammography [address] [facility] [place] [address] Suresh Wright MD #[address] [place] [address] [address] Abnormal mammogram (Primary Dx) Social History Tobacco Use Types Packs/Day Years Used Date Smoking Tobacco: Never Smokeless Tobacco: Never Comments:Former cigarette us e; stopped about 07/2023 Currently uses vape Alcohol Use Standard Drinks/Week Comments Not Currently 0 (1 standard drink = 0.6 oz pur e alcohol) [facility] Utilities Answer Date Recorded In the past 12 months has e [employer], gas, oil, or water [employer] threatened to shut off services in your [...] How often do you attend chur or faith services? Patient declined 11/13/2024 Do you belong to any clubs o r organizations such as jew groups, unions, fraternal or athletic groups, or [...] Total Score - Questions 1-9 0 08/06 [facility] - Occupational Stress Questionnaire Answer Date Recorded [...] any time in the past 12 m [facility], were you homeless or living in a snf (including now)? Patient declined 11/13/2024 Education Answer [...] 9:30 AM CDT Office Visit [facility] - Endocrinology - [place] #2 [place] [address] Luzmaria Cates MD #[address] [address] 01/11/2025 1:30 PM CDT [facility]ment [facility] 1 [place] [address] Suresh Wright MD #2 [facility] [address] [place] [address] Discharge Disposition: Discharged to home or Selfcare 01/14/2025 8:30 AM CDT Office Visit [facility] - Family Medicine [facility] #2 [place] [address] Arthur King APRN, SEALER AIRCRAFT #2 [facility] [address] [place] [address] Scheduled Orders Name Type Priority Associated Diagnoses [...] Depression Total Score: 0 08/28/20 8:02 AM PERSONNEL SCHEDULER documented as of this encounter Care Teams Senior Clinical Data Manager Relationship Specialty Start Date End Date Arthur King, OPERATIONS DISPATCHER, SEALER AIRCRAFT #2 [facility] [address] [place] [address] PCP - General Advanced Practice Nurse 12/24/22 Luzmaria Cates MD #2 [facility] [address] [place] [address] Consulting Physician Endocrinology 02/20/24 Henri West MD #[address] [address] Consulting Physician General Surgery 07/20/24 Maura Lenz, OPERATIONS DISPATCHER, SEALER AIRCRAFT #2 [place] [address] Nurse Practitioner Advanced Practice Nurse 12/07/24 documented as of this encounter
--- OUTSIDE RECORDS SUMMARY | 2024-12-31 02:16 | XMS_ITS | Clinical Summary ---
Author Organization [facility] Address [address] [place] [address] Care Team Providers Care Damage Assessor Name Role Phone Cami Mata MD Primary Care Provider [phone] Source Comments [facility],non-owned Affiliates and Associated Physician Practices is amultiple site organization consisting of ambulatory clinics and hospital sitesin [place], [place] and [place]. This disclosure is being madepursuant to the Care Everywhere program and may not contain all information available regarding this patient. Last updated 18.[facility] Allergies No known active allergies Medications [...] Strip 3 3 Active Lancets Fine 28G [facility] For glucose monitoring. 100 Each 3 3 [...] on file Legal Sex Female 5:35 AM PROVER Gender Identity Not on file Sexual Orientation [...] patient's age to complete this topic Insurance [facility] MEDICAID - [place] [address] Advance Directives * FULL RESUSCITATION (Latest Code Status on File) Date Activated Date Inactivated Comments 02/20/2013 8:29 PM 02/23/2013 3:32 PM Care Teams Damage Assessor Relationship Specialty Start Date End Date Cami Mata MD [address] [place] [address] PCP - General 10/15/20
--- OUTSIDE RECORDS SUMMARY | 2024-12-31 02:16 | XMS_ITS | Clinical Summary ---
Author Organization [facility] Address [address] [place] [address] Care Team Providers Care Toe Laster Name Role Phone Unavailable Primary Care Provider [...]
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
== END 2024-12-31 03:15 | disposition home or self-care (01) ==
PROVIDERS: Emergency Provider Preventive Medicine Aerospace Medicine
DX: S10.83XA Contusion of other specified part of neck, initial encounter (principal); S80.01XA Contusion of right knee, initial encounter; E10.9 Type 1 diabetes mellitus without complications; Y04.8XXA Assault by other bodily force, initial encounter
CPT/HCPCS: 70450; 72125; 73562; 99284; A9270

== ENCOUNTER 2025-03-22 18:35 | Emergency (ER) | payer OTHER, SELFPAY ==
--- OUTSIDE RECORDS SUMMARY | 2025-03-22 18:37 | XMS_ITS | Encounter Summary ---
Author Organization [facility] Address [address] [place] [address] Phone Care Team Providers Care Director Digital Strategy Name Role Phone Arthur King APRN, DANCE MASTER Primary Care Pr ovider Luzmaria Cates MD Unavailable Henri West MD Unavailable [phone] Maura Lenz APRN, DANCE MASTER Unavailable [phone] Reason for Visit * Reason Comments Medication Refill Encounter Details Date Type Department Care Team (Late st Contact Info) Description 04/06/2023 Refill [facility] - Family Medicine - [place] #2 [place] [address] Arthur King APRN, DANCE MASTER #[address] [address] Medication Refill Social History Tobacco Use Types [...] Dept 02/23/23 [facility] Visit [facility] 12[facility]24/22 [facility] Showing recent visits within past 365 days and meeting all other requirements Future Appointments No visits were found meeting these conditions. Showing future appointments within next 90 days and meeting all other requirements documented in this encounter Plan of Treatment Upcoming Encounters Date Type Department Care Team (Late st Contact Info) Description 04/09/2025 9:30 AM CDT Office Visit [facility] Group - Endocrinology - [place] #2 [place] [address] Luzmaria Cates MD #2 [facility] [address] [place] [address] 04/16/2025 8:45 AM CDT Office Visit [facility] - Family Medicine - [place] #2 [place] [address] Arthur King APRN, [facility] #2 [facility] [address] [place] [address] documented as of this encounter Visit Diagnoses [...] documented as of this encounter Care Teams Director Digital Strategy Relationship Specialty Start Date End Date Arthur King APRN, DANCE MASTER #2 [facility] [address] [place] [address] PCP - General Advanced Practice Nurse 12/24/22 Luzmaria Cates MD #2 [facility] [address] [place] [address] Consulting Physician Endocrinology 02/20/24 Henri West MD #2 [facility] [address] [place] [address] Consulting Physician General Surgery 07/20/24 Maura Lenz APRN, DANCE MASTER #2 [facility] [place] [address] Nurse Practitioner Advanced Practice Nurse 12/07/24 documented as of this encounter
--- OUTSIDE RECORDS SUMMARY | 2025-03-22 18:37 | XMS_ITS | Encounter Summary ---
Author Organization [facility] Address [address] [place] [address] Phone Care Team Providers Care Motor Assembly Supervisor Name Role Phone Arthur King APRN, MEASUREMENT ADVISOR Primary Care Pr ovider Lumzaria Cates MD Unavailable Henri West MD Unavailable [phone] Maura Lenz DATA MANAGEMENT MANAGER, MEASUREMENT ADVISOR Unavailable [phone] Reason for Visit * Reason Comments Medication Refill Encounter Details Date Type Department Care Team (Late st Contact Info) Description 08/10/2023 Refill [facility] - Family Medicine - [place] [address] [place] [address] Vandana Jacques APRN, MEASUREMENT ADVISOR #[address] [address] Medication Refill Social History Tobacco [...] Coronavirus/COVID-19? No / Unsure 07/15/2023 10:17 AM LAST REPAIRER documented as of this encounter Miscellaneous Notes * Telephone Encounter - Lyn Currie RN - 05/18/2024 3:43 PM CDT No refill to cancel [facility]/pharmacy #[id number] - [place], [place] - [address] [facility] [address] [facility] [address] Hours: Not open 24 hours Outpatient Medication [...] Receipt confirmed by pharmacy (08/10/2023 10:30 AM LAST REPAIRER) E-Cancel Status: Request denied by pharmacy (05/17/2024 [...] 05/12/23 Office Visit Vandana Jacques APRN, CNP [facility] 02/23/23 Office Visit Arthur King APRN, [facility] [place] Showing recent visits within past 182 days and meeting all other requirements Future Appointments No visits were found meeting these conditions. Showing future appointments within next 90 days and meeting all other requirements Passed - Has an encounter in the past 6 months with a depression or anxiety visit diagnosis REPAIRER documented in this encounter Plan of Treatment Upcoming Encounters Date Type Department Care Team (Late st Contact Info) Description 04/09/2025 9:30 AM CDT Office Visit [facility] - Endocrinology - [place] [address] [place] [address] Luzmaria Cates MD #2 [facility] [address] [place] [address] 04/16/2025 8:45 AM CDT Office Visit [facility] - Family Medicine - [place] [address] [place] [address] Arthur King APRN, [facility] [address]2 [facility] [address] [place] [address] documented as of this encounter Visit Diagnoses [...] documented as of this encounter Care Teams Motor Assembly Supervisor Relationship Specialty Start Date End Date Arthur King APRN, MEASUREMENT ADVISOR #[address] [facility] [address] [place] [address] PCP - General Advanced Practice Nurse 12/24/22 Luzmaria Cates MD #2 [facility] [address] [place] [address] Consulting Physician Endocrinology 02/20/24 Henri West MD #[address] [phone] Consulting Physician General Surgery 07/20/24 Maura Lenz APRN, MEASUREMENT ADVISOR #2 [facility] [place] [address] Nurse Practitioner Advanced Practice Nurse 12/07/24 documented as of this encounter
--- OUTSIDE RECORDS SUMMARY | 2025-03-22 18:37 | XMS_ITS | Encounter Summary ---
Author Organization [facility] Address [address] [facility] [place] [address] Phone Care Team Providers Care Hog Cooler Name Role Phone Arthur King APRN, FERTILIZER SUPERVISOR Primary Care Pr ovider Luzmaria Cates MD Unavailable Henri West MD Unavailable [phone] Maura Lenz APRN, FERTILIZER SUPERVISOR Unavailable [phone] Reason for Visit * Reason Comments Medication Refill Encounter Details Date Type Department Care Team (Late st Contact Info) Description 11/22/2023 Refill [facility] - Family Medicine - [place] [address] [place] [address] Arthur King APRN, FERTILIZER SUPERVISOR #[address] [address] Medication Refill Social History Tobacco Use Types [...] PM CDT Medication[facility]) [facility] Med[facility] Refill Standing Order for Pediatricand [...] 06/07/23 Office Visit Arthur King APRN, CNP [facility] [place] Showing recent visits within past 182 days and meeting all other requirements Future Appointments No visits were found meeting these conditions. Showing future appointments within next 90 days and meeting all other requirements documented in this encounter Plan of Treatment Upcoming Encounters Date Type Department Care Team (Late st Contact Info) Description 04/09/2025 9:30 AM CDT Office Visit [facility] - Endocrinology - [place] [address] [place] [address] Luzmaria Cates MD #2 [facility] [address] [place] [address] 04/16/2025 8:45 AM CDT Office Visit [facility] - Family Medicine - [place] [address] [place] [address] Arthur iKng APRN, CNP #2 [facility] [address] [place] [address] documented as of this encounter Visit Diagnoses Not on filedocumented in this encounter Additional Health Concerns Infection Onset Date Last Indicated Resolved Time Respiratory Rule-Out 12/13/2024 12/13/20242 025 10:07 AM CDT COVID - 19 12/13/2024 12/13/2024 12/13/2024 10:0 7 AM CDT Assessment Noted Time PHQ-9 Depression Total Score: 6 12/25/19 23 8:32 AM CDT documented as of this encounter Care Teams Hog Cooler Relationship Specialty Start Date End Date Arthur King APRN, FERTILIZER SUPERVISOR [address] [facility] [address] [place] [address] PCP - General Advanced Practice Nurse 12/24/22 Luzmaria Cates MD #[address] [address] Consulting Physician Endocrinology 02/20/24 Henri West MD #[address] [address] Consulting Physician General Surgery 07/20/24 Maura Lenz APRN, FERTILIZER SUPERVISOR #2 [facility] [place] [address] Nurse Practitioner Advanced Practice Nurse 12/07/24 documented as of this encounter
--- OUTSIDE RECORDS SUMMARY | 2025-03-22 18:37 | XMS_ITS | Encounter Summary ---
Author Organization [facility] Address [address] [place] [address] Phone Care Team Providers Care Setter Automatic Spinning Lathe Name Role Phone Arthur King WOOL AND PELT GRADER, SUPERVISOR PLATING AND POINT ASSEMBLY Primary Care Pr ovider Luzmaria Cates MD Unavailable Henri West MD Unavailable [phone] Maura Lenz WOOL AND PELT GRADER, SUPERVISOR PLATING AND POINT ASSEMBLY Unavailable [phone] Reason for Referral * Radiology Services (Routine) - Authorized Specialty Diagnoses / Procedures Referred By Contac t Referred To Contact Radiology Diagnoses Abnormal mammogram Procedures DOMINIQUE DIAG LEFT UNILATERAL DIGITAL W CAD W RAFFI Suresh Wright MD [address] [address] Phone: tel: fax: Referral ID Status Reason Start Date Expiration Date V isits Requested Visits Authorized [id number] Authorized 11/16/2024 1 1 * Radiology Services (Routine) - Closed Specialty Diagnoses / Procedures Referred By Contac t Referred To Contact Radiology Diagnoses Abnormal mammogram Procedures DOMINIQUE US BREAST LIMITED LT Suresh Wright MD #[address] [address] Phone: tel: fax: Referral ID Status Reason Start Date Expiration Date Visits Re quested Visits Authorized [id number] Closed 11/16/2024 1 1 Encounter Details Date Type Department Care Team (Late st Contact Info) Description 11/16/2024 Transcribe Orders [facility] M[facility] [address] [facility] [place] [id number] Suresh Wright MD #[address] [facility] [place] [address] [address] Abnormal mammogram (Primary Dx) Social History Tobacco Use Types Packs/Day Years Used Date Smoking Tobacco: Never Smokeless Tobacco: Never Comments:Former cigarette us e; stopped about 07/2023 Currently uses vape Alcohol Use Standard Drinks/Week Comments Not Currently 0 (1 standard drink = 0.6 oz pur e alcohol) [facility] Utilities Answer Date Recorded In the past 12 months has e [employer], gas, oil, or water [employer] threatened to shut off services in your home? Patient declined 11/13/2024 Social Connection and Isolation Panel Answer Date Recorded In a typical week, how many times do you talk on the phone with family, friends, or neighbors? More than three times a week 11/13/2024 How often do you get togethe r with friends or relatives? Patient declined 11/13/2024 How often do you attend chur or mandaen services? Patient declined 11/13/2024 Do you belong [...] Total Score - Questions 1-9 0 08/06 [facility] of Occupat ional [facility] - Occupational Stress Questionnaire Answer Date [...] any time in the past 12 m [facility], were you homeless or living in a nursing home (including now)? Patient declined 11/13/2024 Education [...] Description 04/09/2025 9:30 AM CDT Office Visit [facility] - Endocrinology - [place] [address] [place] [address] Luzmaria Cates MD #2 [facility] [address] [place] [address] 04/16/2025 8:45 AM CDT Office Visit [facility] - Family Medicine - [place] #[address] [place] [address] Arthur King APRN, SUPERVISOR PLATING AND POINT ASSEMBLY #2 [facility] [address] [place] [address] Scheduled Orders Name Type Priority Associated Diagnoses Orde r Schedule DOMINIQUE DIAG LEFT UNILATERAL DIGITAL W CAD W RAFFI Imaging Routine Abnormal mammogram Expected: 12/17/2024, Expires: 05/19/2025 documented as of this encounter Results * [facility] US BREAST LIMITED LT (01/11/2025 2:10 PM CDT) Anatomical Region Laterality Modality breast Left Ultrasound 01/11/2025 1:30 PM CDT Narrative 01/11/2025 2:27 PM CDT - [facility] US BREAST LIMITED LT LIMITED ULTRASOUND OF LEFT BREAST: 01/11/2025 CLINICAL: Patient returns for a 6 month follow-up left breast with ultrasound only. COMPARISONS: Comparison is made to exams dated: 06/14/2024 and 06/14/2024 [facility]. Color flow ultrasound of the left breast was performed on the areas of interest. Marquez scale images of the real-time examination were reviewed. FINDINGS: Targeted left breast ultrasound was performed in the regions of interest. The previously identified mass at the 2 o'clock position has been surgically removed and pathologically confirmed to represent a fibroadenoma. Scanning of the operative bed demonstrates spot scar without evidence of residual mass. At the 9 o'clock position/retroareolar region of the breast there are 3 fibroadenomas identified. These are labeled 1, 2, and 3. The fibroadenoma labeled 1 measures 1.5 by 1.0 x 0.5 cm. This is not significantly changed. There is evidence of color flow. The fibroadenoma labeled 2 measures 5 mm x 4 mm x 8 mm. This is smaller than on the previous study. The fibroadenoma labeled 3 measures 7 mm x 8 mm x 4 mm. All 3 masses are homogeneously hypoechoic and circumscribed. They all demonstrate color flow. They are all probably benign. IMPRESSION: PROBABLY BENIGN Masses at the 9 o'clock position most likely represent fibroadenomas and are probably benign. Interval surgical removal of mass at the 2 o'clock position. A follow-up ultrasound in 6 months is recommended to demonstrate stability. The results and recommendations were discussed with the patient. Electronically signed by: Delfina Shah M.D. ab/:01/11/2025 14:14:21 Meatcutter(s): BERNADINE Jarrett, [facility] letter sent: Birad 3 Followup Reading location: [facility] Ultrasound BI-RADS: Category 3: Probably Benign Procedure Note Delfina Shah MD - 01/11/2025 - [facility] US BREAST LIMITED LT LIMITED ULTRASOUND OF LEFT BREAST: 01/11/2025 CLINICAL: Patient returns for a 6 month follow-up left breast with ultrasound only. COMPARISONS: Comparison is made to exams dated: 06/14/2024 and 06/14/2024 [facility]. Color flow ultrasound of the left breast was performed on the areas of interest. Marquez scale images of the real-time examination were reviewed. FINDINGS: Targeted left breast ultrasound was performed in the regions of interest. The previously identified mass at the 2 o'clock position has been surgically removed and pathologically confirmed to represent a fibroadenoma. Scanning of the operative bed demonstrates spot scar without evidence of residual mass. At the 9 o'clock position/retroareolar region of the breast there are 3 fibroadenomas identified. These are labeled 1, 2, and 3. The fibroadenoma labeled 1 measures 1.5 by 1.0 x 0.5 cm. This is not significantly changed. There is evidence of color flow. The fibroadenoma labeled 2 measures 5 mm x 4 mm x 8 mm. This is smaller than on the previous study. The fibroadenoma labeled 3 measures 7 mm x 8 mm x 4 mm. All 3 masses are homogeneously hypoechoic and circumscribed. They all demonstrate color flow. They are all probably benign. IMPRESSION: PROBABLY BENIGN Masses at the 9 o'clock position most likely represent fibroadenomas and are probably benign. Interval surgical removal of mass at the 2 o'clock position. A follow-up ultrasound in 6 months is recommended to demonstrate stability. The results and recommendations were discussed with the patient. Electronically signed by: Delfina Shah M.D. ab/:01/11/2025 14:14:21 Meatcutter(s): BERNADINE Jarrett, [facility] letter sent: Justin Wan Followup Reading location: [facility] Ultrasound BI-RADS: Category 3: Probably Benign Suresh Wright MD IMG MAMMO ORDERABLES Jane l Result documented in this encounter Visit Diagnoses Diagnosis Abnormal mammogram- Primary Abnormal mammogram, unspecified Abnormal mammogram Abnormal mammogram, unspecified documented in this encounter Additional Health Concerns Infection Onset Date Last Indicated Resolved Time Respiratory Rule-Out 12/13/2024 12/13/2024 025 10:07 AM CDT COVID - 19 12/13/2024 12/13/2024 12/13/2024 10:0 7 AM CDT Assessment Noted Time PHQ-9 Depression Total Score: 0 08/28/20 24 8:02 AM SCAFFOLD SETTER documented as of this encounter Care Teams Setter Automatic Spinning Lathe Relationship Specialty Start Date End Date Arthur King, WOOL AND PELT GRADER, SUPERVISOR PLATING AND POINT ASSEMBLY #[address] [address] PCP - General Advanced Practice Nurse 12/24/22 Luzmaria Cates MD #[address] [address] Consulting Physician Endocrinology 02/20/24 Henri West MD #[address] [address] Consulting Physician General Surgery 07/20/24 Maura Lenz, WOOL AND PELT GRADER, SUPERVISOR PLATING AND POINT ASSEMBLY #2 [place] [address] Nurse Practitioner Advanced Practice Nurse 12/07/24 documented as of this encounter
--- OUTSIDE RECORDS SUMMARY | 2025-03-22 18:37 | XMS_ITS | Encounter Summary ---
Author Organization [facility] Address [address] [facility] [place] [address] Phone Care Team Providers Care Fireworks Display Specialist Name Role Phone Arthur King NUTTER UP, SENIOR GOVERNMENT PROGRAM ANALYST Primary Care Pr ovider Luzmaria Cates MD Unavailable Henri West MD Unavailable [phone] Maura Lenz NUTTER UP, SENIOR GOVERNMENT PROGRAM ANALYST Unavailable [phone] Reason for Referral * Radiology Services (Routine) - Closed Specialty Diagnoses / Procedures Referred By Contac t Referred To Contact Radiology Diagnoses Mass of left breast, unspecified quadrant Procedures DOMINIQUE BREAST SURGICAL SPECIMEN POST BIOPSY Henri West MD #[address] [address] Phone: tel: fax: Referral ID Status Reason Start Date Expiration Date Visits Re quested Visits Authorized [id number] Closed 07/26/2024 1 1 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 Encounter Details Date Type Department Care Team (Late st Contact Info) Description 07/26/2024 [facility] [address] [place] [address] Henri West MD #[address] [address] Mass of left breast, unspecified quadrant (Primary Dx) Social History Tobacco Use Types Packs/Day Years Used Date Smoking Tobacco: Every Day Smokeless Tobacco: Never Comments:Former cigarette us e; stopped about 07/2023 Currently uses vape Alcohol Use Standard Drinks/Week Comments Not Currently 0 (1 standard drink = 0.6 oz pur e alcohol) [facility] Utilities Answer Date Recorded In the past 12 months has e electric, gas, oil, or water company threatened to shut off services in your home? Yes 05/17/2024 Social Connection and Isolation Panel Answer Date Recorded In a typical week, how many times do you talk on the phone with family, friends, or neighbors? More than three times a week 05/17/2024 How often do you get togethe r with friends or relatives? Never 05/17/2024 How often do you attend chur ch or denominational services? Never 05/17/2024 Do you belong to any clubs o r organizations such as orthodoxy groups, unions, fraternal or athletic groups, or [...] Total Score - Questions 1-9 6 12/05 [facility] of Occupat ional Health - Occupational Stress [...] any time in the past 12 m [facility], were you homeless or living in a retirement (including now)? No 05/17/2024 Education Answer Date [...] Description 04/09/2025 9:30 AM CDT Office Visit [facility] - Endocrinology - [place] [address] [place] [address] Luzmaria Cates MD #[address] [address] [address] 04/16/2025 8:45 AM CDT Office Visit [facility] - Family Medicine - [place] #[address] [place] [address] Arthur King APRN, SENIOR GOVERNMENT PROGRAM ANALYST #[address] [address] Scheduled Orders Name Type Priority Associated Diagnoses [...] documented as of this encounter Care Teams Fireworks Display Specialist Relationship Specialty Start Date End Date Arthur King APRN, SENIOR GOVERNMENT PROGRAM ANALYST [facility] [facility] [address] PCP - General Advanced Practice Nurse 12/24/22 Luzmaria Cates MD #[address] [address] Consulting Physician Endocrinology 02/20/24 Henri West MD #[address] [address] Consulting Physician General Surgery 07/20/24 Maura Lenz APRN, SENIOR GOVERNMENT PROGRAM ANALYST #[address] [place] [address] Nurse Practitioner Advanced Practice Nurse 12/07/24 documented as of this encounter
--- OUTSIDE RECORDS SUMMARY | 2025-03-22 18:37 | XMS_ITS | Clinical Summary ---
Author Organization [facility] Address [address] [place] [address] Phone Care Team Providers Care Lab Courier Name Role Phone Arthur King APRN, LEAD CARE MANAGER Primary Care Pr ovider Luzmaria Cates MD Unavailable Henri West MD Unavailable [phone] Maura Lenz APRN, LEAD CARE MANAGER Unavailable [phone] Allergies Active Allergy Reactions Criticality Noted Date [...] glucose 4-5 times daily. E10.65. 200 Strip 11 02/01/20 24 Active Lancets MiscIndications:T ype 1 diabetes mellitus with hyperglycemia (HCC) Use to test blood glucose 4-5 times daily. E10.65. 200 Lancet 02/01/20 24 Active Insulin Syringe-Needle U-100 (INSULIN SYRINGE .5CC/31GX5/16) 31G X 5/16 0.5 ML MiscIndications:T ype 1 diabetes mellitus with hyperglycemia (HCC) Use four times a day. E10.59. 100 Each 2 02/02/20 24 Active Insulin Pen Needle (BD Pen Needle Cuca U/F) 32G X 4 MM Misc daily 100 Each 1 02/22/20 24 Active Continuous Glucose Transmitter (Dexcom G6 Transmitter) Misc Change transmitter every 90 days 1 Each 3 04/30/20 Active Additional Information Patient not taking.Reported on 02/27/2025 Continuous Glucose Sensor (Dexcom G6 Sensor) Misc CHANGE SENSOR EVERY 10 DAYS 9 Each 11/22/19 25 Active Additional Information Patient not taking.Reported on 02/27/2025 Continuous Glucose Sensor (Dexcom G6 Sensor) MiscIndications:T ype 1 diabetes mellitus with hyperglycemia (HCC) Change sensor every 10 days. 9 Each 1 11/22/19 Active Additional Information Patient not taking.Reported on 02/27/2025 Sertraline HCl (ZOLOFT PO) Take by mouth. Act gatito QUEtiapine Fumarate (SEROQUEL PO) Take by mouth. A ctive tiZANidine (ZANAFLEX) 2 MG TabletIndications :Strain of neck muscle, subsequent encounter Take 1 Tablet by mouth 3 times daily as needed for Muscle spasms. 45 Tablet 01/15/20 25 Active Alcohol Swabs (Alcohol Prep Pads) 70 % PadsIndications:T ype 1 diabetes mellitus with hyperglycemia (HCC) Use to test blood glucose 4-5 times daily. E10.65. 200 Each 01/24/20 Active Nutritional Supplements (Glucerna Shake) LiquidIndications :Protein-calorie malnutrition, unspecified severity (HCC) Vanilla Glucerna Protein Smart, 1 shake TID for malnutrition 01433 mL 01/24/20 25 Active insulin lispro (Admelog) 100 UNIT/ML Solution Per insulin pump setting, up to 30 units per day 30 mL 01/24/20 25 Active Ostomy Supplies (Skin Tac Adhesive Barrier Wipe) Misc 1 Each by Does not apply route as needed for Other (use as needed prior to applying Dexcom sensor). 50 Each 3 01/24/20 25 Active Insulin Disposable Pump (Omnipod 5 TdmA4N2 Pods Gen 5) Misc CHANGE POD EVERY 2.5 DAYS 36 Each 1 01/24/20 25 Active Continuous Glucose Sensor (Dexcom G7 Sensor) Misc Every 10 days 9 Each 1 01/24/20 Active Continuous Glucose [employer] (Dexcom G7 [employer]) Device Check blood glucose before each meal and at bedtime 1 Each 01/24/20 25 Active Active Problems Problem Noted Date Diagnosed [...] Encounters Date Type Department Care Team Description 02/27/2025 11:00 AM CDT Office Visit [facility] Endocrinology [facility] [address] [place] [address] Luzmaria Cates MD Type 1 diabetes mellitus with hyperglycemia (HCC) (Primary Dx); Insulin pump titration; Hypoglycemia Discharge Disposition: Discharged to home or Selfcare 02/27/2025 Telephone [facility] [address] [place] [phone] Arthur King APRN, CNP Advice Only 02/26/2025 Travel 01/23/2025 MyChart RX Renewal [facility] Endocrinology [facility] [address] [place] [address] Luzmaria Cates MD Medication Renewal Reviewed 01/23/2025 MyChart RX Renewal [facility] [address] [place] [address] Arthur King APRN, CNP Medication Renewal Reviewed 01/15/2025 Travel 01/14/2025 9:15 AM CDT Office Visit [facility] [address] [place] [address] Arthur King APRN, SHINE Type 1 diabetes mellitus with hyperglycemia (HCC) (Primary Dx); Bipolar disorder, in partial remission, most recent episode mixed (HCC); Strain of neck muscle, subsequent encounter; Screening for cervical cancer Discharge Disposition: Discharged to home or Selfcare 01/12/2025 Results Follow-Up [facility] [address] [place] [address] Suresh Wright MD [facility] US BREAST LIMITED LT 01/11/2025 1:00 PM CDT - 01/11/2025 11:59 PM CDT Hospital Encounter [facility] Ultrasound [address] [place] [address] Suresh Wright MD Discharge Disposition: Discharged to home or Selfcare 01/11/2025 Travel 01/07/2025 9:30 AM CDT Office Visit [facility] Endocrinology [facility] [address] [place] [address] Luzmaria Cates MD Type 1 diabetes mellitus with hyperglycemia (HCC) (Primary Dx); Insulin pump titration; Hypoglycemia Discharge Disposition: Discharged to home or Selfcare 01/05/2025 Travel 12/21/2024 Results Follow-Up [facility] [address] [place] [address] Arthur King APRN, SHINE XR CHEST 2 VIEWS from Last 3 Months Immunizations Immunization Administration Dates Next Due Covid-19, Mrna, Lnp-s, Pf, 3 0 Mcg/0.3 Ml Dose (Pfizer) 01/23/2021,01/02/2021 DTAP VACCINE, 5 PERTUSSIS AN TIGENS, [...] drink = 0.6 oz pur e alcohol) [facility] Utilities Answer Date Recorded In the past 12 months has [employer] electric, gas, oil, or water [facility] threatened to shut off services in your home? Patient declined 12/12/2024 Social Connection and Isolation Panel Answer Date Recorded In a typical week, how many times do you talk on the phone with family, friends, or neighbors? Patient declined 12/12/2024 How often do you get togethe r with friends or relatives? Patient declined 12/12/2024 How often do you attend yarsanism or anabaptist serv ices? Patient declined 12/12/2024 Do you belong to any clubs o r organizations such as yarsanism groups, unions, fraternal or athletic groups, or [...] Score - Questions 1-9 0 08/06 [facility] of Occupat ional [facility] - Occupational Stress Questionnaire Answer Date [...] any time in the past 12 m [facility], were you homeless or living in a intermediate (including now)? Patient declined 12/12/2024 Education Answer [...] Sign Reading Time Taken Comments Blood Pressure 116/78 02/27/2025 11:02 AM CDT Pulse 82 02/27/2025 11:02 AM CDT Temperature 36.6 C (97.9 F) 02/27/2025 11:02 AM CDT Respiratory Rate 22 02/27/2025 11:02 AM CDT Oxygen Saturation 99% 02/27/2025 11:02 AM CDT Inhaled Oxygen Concentration - - Weight 51.1 kg (112 lb 9.6 oz) 02/27/2025 11:02 AM CDT Height 162.6 cm (5' 4) 01/14/2025 9:14 AM CDT Body Mass Index 19.33 01/14/2025 9:14 AM CDT Plan of Treatment Upcoming Encounters Date Type Department Care Team (Late st Contact Info) Description 04/09/2025 9:30 AM CDT Office Visit [facility] - Endocrinology [facility] [address] [place] [address] Luzmaria Cates MD [address] [facility] [address] [place] [address] 04/16/2025 8:45 AM CDT Office Visit [facility] Medical [facility] - Family Medicine [facility] [address] [place] [address] Arthur King APRN, LEAD CARE MANAGER [address] [facility] [address] [place] [address] Health Maintenance Due Date Last Done Comments Hepatitis C Virus (HCV) Screening 1993 Hepatitis B Immunization (3 of 3 - 3-dose series) 1993 1993, 1993 Pap Smear 2014 Cervical Cancer Screening (CCS) 2023 HPV/Cotest 2023 SARS-COV-2 Immunization ( season) 2024 01/23/2021, 01/02/2021 DTaP/Tdap/Td Immunization (6 - Td or Tdap) 03/27/2025 03/27/2015, 05/20/2003, 06/23/1997, Additional history exists Influenza Immunization (#1) 2025 05/28/2016 Diabetes: Hemoglobin A1c 07/10/2025 025, 10/10/2024, 02/07/2024, Additional history exists Diabetes: Nephropathy Screening 11/15/2025 11/15/2024, 02/07/2024, 07/13/2023, Additional history exists Diabetes: Eye Exam 01/01/2026 01/01/2025, 04/18/2023 Diabetes: Foot Exam 01/07/2026 01/07/2025 Respiratory Syncytial Virus (RSV) Immunization (Adult) (1 - 1-dose 75+ series) 2068 Meningococcal Immunization (ACWY) Aged Out 05/01/2007 No longer eligible based on patient's age to complete this topic Human Papillomavirus (HPV) Immunization Completed 11/13/2007, 07/10/2007, 05/01/2007 Pneumococcal Immunization Combined Discontinued Rotavirus Immunization Aged Out No lo nger eligible based on patient's age to complete this topic Procedures Procedure Name Priority Date/Time Associated Diagnosis Comments DOMINIQUE US BREAST LIMITED LT Routine 01/11/2025 2:10 PM CDT Abnormal mammogram POCT GLYCOSYLATED HEMOGLOBIN Routine 01/07/2025 9:28 AM CDT Type 1 diabetes mellitus with hyperglycemia (HCC) HM DILATED EYE EXAM 01/01/2025 1 2:00 AM CDT CMP (COMPREHENSIVE METABOLIC PANEL) Today 11/15/2024 9:21 AM CDT Elevated LFTs from Last 3 Months or Most Recently Relevant to Health Maintenance Results * [facility] US BREAST LIMITED LT (01/11/2025 2:10 PM CDT) Anatomical Region Laterality Modality breast Left Ultrasound 01/11/2025 1:30 PM CDT Narrative 01/11/2025 2:27 PM CDT - [facility] US BREAST LIMITED LT LIMITED ULTRASOUND OF LEFT BREAST: 01/11/2025 CLINICAL: Patient returns for a 6 month follow-up left breast with ultrasound only. COMPARISONS: Comparison is made to exams dated: 06/14/2024 and 06/14/2024 [facility]. Color flow ultrasound of the left breast [...] signed by: Delfina Shah M.D. ab/:01/11/2025 14:14:21 Producer Assistant(s): BERNADINE Jarrett, [facility] letter sent: Justin Wan Followup Reading location: [facility] Ultrasound BI-RADS: Category 3: Probably Benign Procedure Note Delfina Shah MD - 01/11/2025 - [facility] US BREAST LIMITED LT LIMITED ULTRASOUND OF LEFT BREAST: 01/11/2025 CLINICAL: Patient returns for a 6 month follow-up left breast with ultrasound only. COMPARISONS: Comparison is made to exams dated: 06/14/2024 and 06/14/2024 [facility]. Color flow ultrasound of the left breast [...] signed by: Delfina Shah M.D. ab/:01/11/2025 14:14:21 Producer Assistant(s): BERNADINE Jarrett, [facility] letter sent: Justin Wan Followup Reading location: [facility] Ultrasound BI-RADS: Category 3: Probably Benign us Suresh Wright MD IMG MAMMO ORDERABLES Jane l Result * (ABNORMAL) POCT GLYCOSYLATED HEMOGLOBIN (01/07/2025 9:28 AM CDT) Pathologist [facility] HGB-A1C 7.4(A) 4 - 6 % Blood 01/07/2025 9:28 AM CDT Luzmaria Cates MD POINT OF CARE TESTING (MANUAL) F inal Result * HM DILATED EYE EXAM (01/01/2025 12:00 AM CDT) 01/01/2025 us Provider Scan PROCEDURE/MINOR SURGICAL ORDERAB LES Final Result SCAN * (ABNORMAL) CMP (COMPREHENSIVE METABOLIC PANEL) (11/15/2024 9:21 AM CDT) [facility] SODIUM 137 136 - 145 mmol/L 11/15/2024 10:14 AM CDT [facility] POTASSIUM 4.4 3.5 - 5.1 mmol/L 11/15/2024 10:14 AM CDT [facility] CHLORIDE 103 98 - 107 mmol/L 11/15/2024 10:14 AM CDT [facility] CO2, VENOUS 25 22 - 30 mmol/L 11/15/2024 10:14 AM CDT [facility] ANION GAP 13.4 <18.0 mmol/L 11/15/2024 10:14 AM CDT [facility] GLUCOSE 208(H) 70 - 99 mg/dL 11/15/2024 10:14 AM CDT [facility] BUN 15 5 - 18 mg/dL 11/15/2024 10:14 AM CDT [facility] CREATININE, BLOOD 0.75 0.60 - 1.00 mg/dL 11/15/2024 10:14 AM CDT [facility] BUN/CREATININE RATIO 20 12 - 20 ratio 11/15/2024 10:14 AM CDT [facility] TOTAL PROTEIN 7.0 6.0 - 8.0 g/dL 11/15/2024 10:14 AM CDT [facility] ALBUMIN 4.1 3.5 - 5.0 g/dL 11/15/2024 10:14 AM CDT [facility] A/G RATIO 1.4 1.0 - 2.2 11/15/2024 10:14 AM CDT [facility] CALCIUM 8.9 8.7 - 10.5 mg/dL 11/15/2024 10:14 AM CDT [facility] T BILI 0.1(L) 0.2 - 1.2 mg/dL 11/15/2024 10:14 AM CDT [facility] SGOT (AST) 18 <43 U/L 11/15/2024 10:14 AM [facility] SGPT (ALT) 10 <56 U/L 11/15/2024 10:14 AM [facility] ALKALINE PHOSPHATASE 79 40 - 150 U/L 11/15/2024 10:14 AM [facility] IS THE PATIENT REQUIRED TO BE FASTING? No 11/15/2024 10:14 AM CDT [facility] GFR, ESTIMATED >60 >=60 11/15/2024 10:14 AM [facility] Comment: Creatinine Clearance is the preferred criteria for selecting drug dose adjustments in renally impaired patients. The GFR is provided as additional pertinent clinical information. GFR is reported in mL/min/1.73 sq m. Calculation based on the Chronic Kidney Disease Epidemiology Collaboration (CKD- EPI) equation refit without adjustment for race. GFR, EST. >60 >=60 025 10:14 AM CDT [facility] GFR, EST. NONAFRICAN >60 >=60 11/15/2024 10:14 AM [facility] Blood Venipuncture / Unknown 11/15/2024 9:21 AM CDT 11/15/2024 9:45 AM CDT Suresh Wright MD CHEMISTRY ORDERABLES Jane l Result [facility] #1 [facility] [place] [address] from Last 3 Months or Most Recently Relevant to Health Maintenance Insurance MEDICAID [facility] Care Teams Lab Courier Relationship Specialty Start Date End Date Arthur King APRN, LEAD CARE MANAGER [address] [facility] [address] [place] [address] PCP - General Advanced Practice Nurse 12/24/22 Luzmaria Cates MD #[address] [facility] [address] [place] [phone] Consulting Physician Endocrinology 02/20/24 Henri West MD #2 [facility] [address] [place] [phone] Consulting Physician General Surgery 07/20/24 Maura Lenz APRN, LEAD CARE MANAGER [address] [place] [address] Nurse Practitioner Advanced Practice Nurse 12/07/24
--- OUTSIDE RECORDS SUMMARY | 2025-03-22 18:37 | XMS_ITS | Clinical Summary ---
Author Organization [facility] Address [address] [place] [id number] Care Team Providers Care Bleach Boiler Filler Name Role Phone Unavailable Primary Care Provider [...]
[2025-03-22 18:40] VITALS: BP 112/78; PULSE 83; RESP 18; TEMP 37; O2SAT 100
--- NOTE | 2025-03-22 18:49 | PC.NURSE ---
Pt ambulates to the intake desk and stated she was going to urgent care. Pt ambulated out of ER with steady gait.
--- OUTSIDE RECORDS SUMMARY | 2025-03-22 23:08 | XMS_ITS | Encounter Summary ---
Author Organization [facility] Address [address] [place] [address] Phone Care Team Providers Care Cell Builder Name Role Phone Arthur King CASING MAN, DRAG OUT MAN Primary Care Pr ovider Luzmaria Cates MD Unavailable Henri West MD Unavailable [phone] Maura Lenz CASING MAN, DRAG OUT MAN Unavailable [phone] Reason for Referral * Radiology Services (Routine) - Authorized Specialty Diagnoses / Procedures Referred By Contac t Referred To Contact Radiology Diagnoses Abnormal mammogram Procedures DOMINIQUE DIAG LEFT UNILATERAL DIGITAL W CAD W RAFFI Suresh Wright MD [address] [address] Phone: tel: fax: Referral ID Status Reason Start Date Expiration Date V isits Requested Visits Authorized [id number] Authorized 11/16/2024 1 1 * Radiology Services (Routine) - Closed Specialty Diagnoses / Procedures Referred By Contac t Referred To Contact Radiology Diagnoses Abnormal mammogram Procedures DOMINIQUE US BREAST LIMITED LT Suresh Wright MD #[address] [address] Phone: tel: fax: Referral ID Status Reason Start Date Expiration Date Visits Re quested Visits Authorized [id number] Closed 11/16/2024 1 1 Encounter Details Date Type Department Care Team (Late st Contact Info) Description 11/16/2024 Transcribe Orders [facility] Mammography 1 [facility] [place] [phone] Suresh Wright MD #[address] [place] [address] [address] Abnormal mammogram (Primary Dx) Social History Tobacco Use Types Packs/Day Years Used Date Smoking Tobacco: Never Smokeless Tobacco: Never Comments:Former cigarette us e; stopped about 07/2023 Currently uses vape Alcohol Use Standard Drinks/Week Comments Not Currently 0 (1 standard drink = 0.6 oz pur e alcohol) [facility] Utilities Answer Date Recorded In the past 12 months has e [employer], gas, oil, or water [employer] threatened to shut off services in your [...] How often do you attend chur or christianity services? Patient declined 11/13/2024 Do you belong to any clubs o r organizations such as samaritan groups, unions, fraternal or athletic groups, or [...] Score - Questions 1-9 0 08/06 [facility] of Occupat ional [facility] - Occupational Stress Questionnaire Answer Date [...] any time in the past 12 m [facility], were you homeless or living in a long term (including now)? Patient declined 11/13/2024 Education Answer [...] Description 04/09/2025 9:30 AM CDT Office Visit [facility] - Endocrinology - [place] #2 [place] [address] Luzmaria Cates MD #2 [facility] [address] [place] [address] 04/16/2025 8:45 AM CDT Office Visit [facility] Medical [facility] - Family Medicine - [place] #2 [place] [address] Arthur King APRN, DRAG OUT MAN #2 [facility] [address] [place] [address] Scheduled Orders Name Type Priority Associated Diagnoses Orde r Schedule DOMINIQUE DIAG LEFT UNILATERAL DIGITAL W CAD W RAFFI Imaging Routine Abnormal mammogram Expected: 12/17/2024, Expires: 05/19/2025 documented as of this encounter Results * [facility] US BREAST LIMITED LT (01/11/2025 2:10 PM CDT) Anatomical Region Laterality Modality breast Left Ultrasound 01/11/2025 1:30 PM CDT Narrative 01/11/2025 2:27 PM CDT - [facility] US BREAST LIMITED LT LIMITED ULTRASOUND OF LEFT BREAST: 01/11/2025 CLINICAL: Patient returns for a 6 month follow-up left breast with ultrasound only. COMPARISONS: Comparison is made to exams dated: 06/14/2024 and 06/14/2024 [facility]. Color flow ultrasound of the left breast [...] signed by: Delfina Shah M.D. ab/:01/11/2025 14:14:21 Filter Operator(s): BERNADINE Jarrett, [facility] letter sent: Birad 3 Followup Reading location: [facility] Ultrasound BI-RADS: Category 3: Probably Benign Procedure Note Delfina Shah MD - 01/11/2025 - [facility] US BREAST LIMITED LT LIMITED ULTRASOUND OF LEFT BREAST: 01/11/2025 CLINICAL: Patient returns for a 6 month follow-up left breast with ultrasound only. COMPARISONS: Comparison is made to exams dated: 06/14/2024 and 06/14/2024 [facility]. Color flow ultrasound of the left breast [...] signed by: Delfina Shah M.D. ab/:01/11/2025 14:14:21 Filter Operator(s): BERNADINE Jarrett, [facility] letter sent: Justin Wan Followup Reading location: [facility] Ultrasound BI-RADS: Category 3: Probably Benign Suresh [...] Total Score: 0 08/28/20 24 8:02 AM WILDLAND FIREFIGHTER documented as of this encounter Care Teams Cell Builder Relationship Specialty Start Date End Date Arthur King, CASING MAN, DRAG OUT MAN #[address] [address] PCP - General Advanced Practice Nurse 12/24/22 Luzmaria Cates MD #[address] [address] Consulting Physician Endocrinology 02/20/24 Henri West MD #[address] [address] Consulting Physician General Surgery 07/20/24 Maura Lenz, CASING MAN, DRAG OUT MAN #2 [place] [address] Nurse Practitioner Advanced Practice Nurse 12/07/24 documented as of this encounter
--- OUTSIDE RECORDS SUMMARY | 2025-03-22 23:08 | XMS_ITS | Encounter Summary ---
Author Organization [facility] Address [address] [facility] [place] [address] Phone Care Team Providers Care Marketing Development Representative Name Role Phone Arthur King WOOD LATHE OPERATOR, PRINTING PRESSMAN Primary Care Pr ovider Luzmaria Cates MD Unavailable Henri West MD Unavailable [phone] Maura Lenz WOOD LATHE OPERATOR, PRINTING PRESSMAN Unavailable [phone] Reason for Referral * Radiology Services (Routine) - Closed Specialty Diagnoses / Procedures Referred By Contac t Referred To Contact Radiology Diagnoses Mass of left breast, unspecified quadrant Procedures DOMINIQUE BREAST SURGICAL SPECIMEN POST BIOPSY Henri West MD #[address] [address] Phone: tel: fax: Referral ID Status Reason Start Date Expiration Date Visits Re quested Visits Authorized [id number] Closed 07/26/2024 1 1 ER SETTER Encounter Details Date Type Department Care Team (Late st Contact Info) Description 07/26/2024 [facility] 1 [place] [address] Henri West MD #[address] [address] Mass of left breast, unspecified quadrant (Primary Dx) Social History Tobacco Use Types Packs/Day Years Used Date Smoking Tobacco: Every Day Smokeless Tobacco: Never Comments:Former cigarette us e; stopped about 07/2023 Currently uses vape Alcohol Use Standard Drinks/Week Comments Not Currently 0 (1 standard drink = 0.6 oz pur e alcohol) [facility] Utilities Answer Date Recorded In the [...] often do you attend chur ch or episcopal services? Never 05/17/2024 Do you belong to [...] Total Score - Questions 1-9 6 12/05 [facility] of Occupat ional Health - Occupational Stress [...] any time in the past 12 m [facility], were you homeless or living in a group home (including now)? No 05/17/2024 Education Answer Date [...] Endocrinology - [place] [address] [place] [address] Luzmaria Cates MD #[address] [address] [address] 04/16/2025 8:45 AM CDT Office Visit [facility] - Family Medicine - [place] #[address] [place] [address] Arthur King APRN, PRINTING PRESSMAN #[address] [address] Scheduled Orders Name Type Priority Associated Diagnoses [...] documented as of this encounter Care Teams Marketing Development Representative Relationship Specialty Start Date End Date Arthur King APRN, PRINTING PRESSMAN [address] [facility] [address] PCP - General Advanced Practice Nurse 12/24/22 Luzmaria Cates MD #[address] [address] Consulting Physician Endocrinology 02/20/24 Henri West MD #[address] [address] Consulting Physician General Surgery 07/20/24 Maura Lenz APRN, PRINTING PRESSMAN #2 [place] [address] Nurse Practitioner Advanced Practice Nurse 12/07/24 documented as of this encounter
--- OUTSIDE RECORDS SUMMARY | 2025-03-22 23:09 | XMS_ITS | Encounter Summary ---
Author Organization [facility] Address [address] [facility] [address] Phone Care Team Providers Care Supervisor Intelligence Analyst Name Role Phone Arthur King APRN, POSTAL INSPECTOR Primary Care Pr ovider Luzmaria Cates MD Unavailable Henri West MD Unavailable [phone] Maura Lenz APRN, POSTAL INSPECTOR Unavailable [phone] Reason for Visit * Reason Comments Medication Refill Encounter Details Date Type Department Care Team (Late st Contact Info) Description 11/22/2023 Refill [facility] - Family Medicine - [place] #2 [place] [address] Arthur King APRN, POSTAL INSPECTOR #[address] [address] Medication Refill Social History Tobacco Use Types [...] PM CDT Medication(s) refilled and signed per [facility] Chronic Medication Refill Standing Order for [...] 06/07/23 Office Visit Arthur King APRN, CNP [facility] [place] Showing recent visits within past 182 days and meeting all other requirements Future Appointments No visits were found meeting these conditions. Showing future appointments within next 90 days and meeting all other requirements documented in this encounter Plan of Treatment Upcoming Encounters Date Type Department Care Team (Late st Contact Info) Description 04/09/2025 9:30 AM CDT Office Visit [facility] Medical [facility] - Endocrinology - [place] #2 [place] [address] Luzmaria Cates MD #2 [facility] [address] [place] [address] 04/16/2025 8:45 AM CDT Office Visit [facility] - Family Medicine - [place] #2 [place] [address] Arthur King APRN, CNP #2 [facility] [address] [place] [address] documented as of this encounter Visit Diagnoses Not on filedocumented in this encounter Additional Health Concerns Infection Onset Date Last Indicated Resolved Time Respiratory Rule-Out 12/13/2024 12/13/20242 025 10:07 AM CDT COVID - 19 12/13/2024 12/13/2024 12/13/2024 10:0 7 AM CDT Assessment Noted Time PHQ-9 Depression Total Score: 6 12/25/19 23 8:32 AM CDT documented as of this encounter Care Teams Supervisor Intelligence Analyst Relationship Specialty Start Date End Date Arthur King APRN, POSTAL INSPECTOR #[address] [facility] [address] [place] [address] PCP - General Advanced Practice Nurse 12/24/22 Luzmaria Cates MD #[address] [address] Consulting Physician Endocrinology 02/20/24 Henri West MD #[address] [address] Consulting Physician General Surgery 07/20/24 Maura Lenz APRN, POSTAL INSPECTOR #2 [facility] [place] [address] Nurse Practitioner Advanced Practice Nurse 12/07/24 documented as of this encounter
--- OUTSIDE RECORDS SUMMARY | 2025-03-22 23:09 | XMS_ITS | Clinical Summary ---
Author Organization [facility] Address [address] [place] [address] Care Team Providers Care Informatics Analyst Name Role Phone Unavailable Primary Care Provider [...]
--- OUTSIDE RECORDS SUMMARY | 2025-03-22 23:09 | XMS_ITS | Encounter Summary ---
Author Organization [facility] Address [address] [place] [address] Phone Care Team Providers Care Truck Loader Overhead Crane Name Role Phone Arthur King APRN, BEAM BUILDER HELPER Primary Care Pr ovider Luzmaria Cates MD Unavailable Henri West MD Unavailable [phone] Maura Lenz RENEWABLE ENERGY DIVISION MANAGER, BEAM BUILDER HELPER Unavailable [phone] Reason for Visit * Reason Comments Medication Refill Encounter Details Date Type Department Care Team (Late st Contact Info) Description 08/10/2023 Refill [facility] - Family Medicine - [place] #2 [place] [address] Vandana Jacques APRN, BEAM BUILDER HELPER #[address] [address] Medication Refill Social History Tobacco [...] Coronavirus/COVID-19? No / Unsure 07/15/2023 10:17 AM RETAIL MERCHANDISING MANAGER documented as of this encounter Miscellaneous Notes * Telephone Encounter - Lyn Currie RN - 05/18/2024 3:43 PM CDT No refill to cancel [facility]pharmacy #[id number] - [place], [place] - [address] [facility] [address] [facility] [address] Hours: Not open 24 hours Outpatient Medication [...] Receipt confirmed by pharmacy (08/10/2023 10:30 AM RETAIL MERCHANDISING MANAGER) E-Cancel Status: Request denied by pharmacy (05/17/2024 [...] 02/23/23 Office Visit Arthur King APRN, [facility] [place] Showing recent visits within past 182 days and meeting all other requirements Future Appointments No visits were found meeting these conditions. Showing future appointments within next 90 days and meeting all other requirements Passed - Has an encounter in the past 6 months with a depression or anxiety visit diagnosis [place] MERCHANDISING MANAGER documented in this encounter Plan of Treatment Upcoming Encounters Date Type Department Care Team (Late st Contact Info) Description 04/09/2025 9:30 AM CDT Office Visit [facility] Medical Group - Endocrinology - [place] #2 [place] [address] Luzmaria Cates MD #2 [facility] [address] [place] [address] 04/16/2025 8:45 AM CDT Office Visit [facility] - Family Medicine - [place] #2 [place] [address] Arthur King APRN, SHINE #2 [facility] [address] [place] [address] documented as of this encounter Visit Diagnoses [...] documented as of this encounter Care Teams Truck Loader Overhead Crane Relationship Specialty Start Date End Date Arthur King APRN, BEAM BUILDER HELPER #2 [address] [facility] [address] [place] [address] PCP - General Advanced Practice Nurse 12/24/22 Luzmaria Cates MD #2 [facility] [address] [place] [address] Consulting Physician Endocrinology 02/20/24 Henri West MD #[address] [phone] Consulting Physician General Surgery 07/20/24 Maura Lenz APRN, BEAM BUILDER HELPER #2 [facility] [place] [address] Nurse Practitioner Advanced Practice Nurse 12/07/24 documented as of this encounter
--- OUTSIDE RECORDS SUMMARY | 2025-03-22 23:09 | XMS_ITS | Encounter Summary ---
Author Organization [facility] Address [address] [facility] [place] [place] [address] Phone Care Team Providers Care Tax Evaluator Name Role Phone Arthur King APRN, PCB DESIGN ENGINEER Primary Care Pr ovider Luzmaria Cates MD Unavailable Henri West MD Unavailable [phone] Maura Lenz APRN, PCB DESIGN ENGINEER Unavailable [phone] Reason for Visit * Reason Comments Medication Refill Encounter Details Date Type Department Care Team (Late st Contact Info) Description 04/06/2023 Refill [facility] - Family Medicine - [place] #2 [place] [address] Arthur King APRN, PCB DESIGN ENGINEER #[address] [address] Medication Refill Social History Tobacco Use Types [...] 02/23/23 [facility] Visit [facility] 12/24/22 Office Visit Arthur King APRN, [facility] Showing recent visits within past 365 days and meeting all other requirements Future Appointments No visits were found meeting these conditions. Showing future appointments within next 90 days and meeting all other requirements documented in this encounter Plan of Treatment Upcoming Encounters Date Type Department Care Team (Late st Contact Info) Description 04/09/2025 9:30 AM CDT Office Visit [facility] Medical Group - Endocrinology - [place] #2 [place] [address] Luzmaria Cates MD #2 [facility] [address] [place] [address] 04/16/2025 8:45 AM CDT Office Visit [facility] - Family Medicine - [place] #[address] [place] [address] Arthur King APRN, SHINE #2 [facility] [address] [place] [address] documented as of this encounter Visit Diagnoses [...] documented as of this encounter Care Teams Tax Evaluator Relationship Specialty Start Date End Date Arthur King APRN, PCB DESIGN ENGINEER #2 [facility] [address] [place] [address] PCP - General Advanced Practice Nurse 12/24/22 Luzmaria Cates MD #2 [facility] [address] [place] [address] Consulting Physician Endocrinology 02/20/24 Henri West MD #2 [facility] [address] [place] [address] Consulting Physician General Surgery 07/20/24 Maura Lenz APRN, PCB DESIGN ENGINEER #2 [facility] [place] [address] Nurse Practitioner Advanced Practice Nurse 12/07/24 documented as of this encounter
--- OUTSIDE RECORDS SUMMARY | 2025-03-22 23:09 | XMS_ITS | Clinical Summary ---
Author Organization [facility] Address [address] [place] [address] Phone Care Team Providers Care Examiner Rating Clerk Name Role Phone Arthur King APRN, SALES PROJECT COORDINATOR Primary Care Pr ovider Luzmaria Cates MD Unavailable Henri West MD Unavailable Maura Lenz APRN, SALES PROJECT COORDINATOR Unavailable [phone] Allergies Active Allergy Reactions Criticality Noted Date [...] Protein Smart, 1 shake TID for malnutrition 78492 mL 01/24/20 25 Active insulin lispro (Admelog) 100 UNIT/ML Solution Per insulin pump setting, up to 30 units per day 30 mL 01/24/20 25 Active Ostomy Supplies (Skin Tac Adhesive Barrier Wipe) Misc 1 Each by Does not apply route as needed for Other (use as needed prior to applying Dexcom sensor). 50 Each 3 01/24/20 25 Active Insulin Disposable Pump (Omnipod 5 TkoT0C1 Pods Gen 5) Misc CHANGE POD EVERY 2.5 DAYS 36 Each 1 01/24/20 25 Active Continuous Glucose Sensor (Dexcom G7 Sensor) Misc Every 10 days 9 Each 1 01/24/20 Active Continuous Glucose Office Cashier (Dexcom G7 Office Cashier) Device Check blood glucose before each meal [...] Description 02/27/2025 11:00 AM CDT Office Visit [facility] [address] [place] [address] Luzmaria Cates MD Type 1 diabetes mellitus with hyperglycemia (HCC) (Primary Dx); Insulin pump titration; Hypoglycemia Discharge Disposition: Discharged to home or Selfcare 02/27/2025 Telephone [facility] [address] [place] [phone] Arthur King APRN, CNP Advice Only 02/26/2025 Travel 01/23/2025 MyChart RX Renewal [facility] [address] [place] [address] Luzmaria Cates MD Medication Renewal Reviewed 01/23/2025 MyChart RX Renewal [facility] [address] [place] [address] Arthur King APRN, CNP Medication Renewal Reviewed 01/15/2025 Travel 01/14/2025 9:15 AM CDT Office Visit [facility] [address] [place] [address] Arthur King APRN, SHINE Type 1 diabetes mellitus with hyperglycemia (HCC) (Primary Dx); Bipolar disorder, in partial remission, most recent episode mixed (HCC); Strain of neck muscle, subsequent encounter; Screening for cervical cancer Discharge Disposition: Discharged to home or Selfcare 01/12/2025 Results Follow-Up [facility] [address] [place] [address] Suresh Wright MD [facility] US BREAST LIMITED LT 01/11/2025 1:00 PM CDT - 01/11/2025 11:59 PM CDT Hospital Encounter [facility] Ultrasound [address] [place] [address] Suresh Wright MD Discharge Disposition: Discharged to home or Selfcare 01/11/2025 Travel 01/07/2025 9:30 AM CDT Office Visit [facility] [address] [place] [address] Luzmaria Cates MD Type 1 diabetes mellitus with hyperglycemia (HCC) (Primary Dx); Insulin pump titration; Hypoglycemia Discharge Disposition: Discharged to home or Selfcare 01/05/2025 Travel 12/21/2024 Results Follow-Up [facility] [address] [place] [address] Arthur King APRN, SHINE XR CHEST 2 [...] drink = 0.6 oz pur e alcohol) [facility] Utilities Answer Date Recorded In the past 12 months has [employer] electric, gas, oil, or water [employer] threatened to shut off services in your home? Patient declined 12/12/2024 Social Connection and Isolation Panel Answer Date Recorded In a typical week, how many times do you talk on the phone with family, friends, or neighbors? Patient declined 12/12/2024 How often do you get togethe r with friends or relatives? Patient declined 12/12/2024 How often do you attend confucianism or scientology serv ices? Patient declined 12/12/2024 Do you belong to any clubs o r organizations such as confucianism groups, unions, fraternal or athletic groups, or [...] Total Score - Questions 1-9 0 08/06 [facility] - Occupational Stress Questionnaire Answer Date [...] any time in the past 12 m [facility], were you homeless or living in [...] Description 04/09/2025 9:30 AM CDT Office Visit [facility] - Endocrinology [facility] [address] [place] [address] Luzmaria Cates MD [facility] [address] [place] [address] 04/16/2025 8:45 AM CDT Office Visit [facility] - Family Medicine [facility] [address] [place] [address] Arthur King APRN, SALES PROJECT COORDINATOR [facility] [address] [place] [address] Health Maintenance Due Date Last Done Comments [...] Recently Relevant to Health Maintenance Results * [facility] US BREAST LIMITED LT (01/11/2025 2:10 PM CDT) Anatomical Region Laterality Modality breast Left Ultrasound 01/11/2025 1:30 PM CDT Narrative 01/11/2025 2:27 PM CDT - [facility] US BREAST LIMITED LT LIMITED ULTRASOUND OF LEFT BREAST: 01/11/2025 CLINICAL: Patient returns for a 6 month follow-up left breast with ultrasound only. COMPARISONS: Comparison is made to exams dated: 06/14/2024 and 06/14/2024 [facility]. Color flow ultrasound of the left [...] signed by: Delfina Shah M.D. ab/:01/11/2025 14:14:21 Food Science Technician(s): BERNADINE Jarrett, [facility] letter sent: Justin Wan Followup Reading location: [facility] Ultrasound BI-RADS: Category 3: Probably Benign Procedure Note Delfina Shah MD - 01/11/2025 - [facility] US BREAST LIMITED LT LIMITED ULTRASOUND OF LEFT BREAST: 01/11/2025 CLINICAL: Patient returns for a 6 month follow-up left breast with ultrasound only. COMPARISONS: Comparison is made to exams dated: 06/14/2024 and 06/14/2024 [facility]. Color flow ultrasound of the left [...] signed by: Delfina Shah M.D. ab/:01/11/2025 14:14:21 Food Science Technician(s): BERNADINE Jarrett, [facility] letter sent: Justin Wan Followup Reading location: [facility] Ultrasound BI-RADS: Category 3: Probably Benign us Suresh Wright MD IMG MAMMO ORDERABLES Jane l Result * (ABNORMAL) POCT GLYCOSYLATED HEMOGLOBIN (01/07/2025 9:28 AM CDT) Pathologist [facility] HGB-A1C 7.4(A) 4 - 6 % Blood 01/07/2025 9:28 AM CDT Luzmaria Cates MD POINT OF CARE TESTING (MANUAL) F inal Result * HM DILATED EYE EXAM (01/01/2025 12:00 AM CDT) 01/01/2025 us Provider Scan PROCEDURE/MINOR SURGICAL ORDERAB LES Final Result SCAN * (ABNORMAL) CMP (COMPREHENSIVE METABOLIC PANEL) (11/15/2024 9:21 AM CDT) [facility] SODIUM 137 136 - 145 mmol/L 11/15/2024 10:14 AM CDT [facility] POTASSIUM 4.4 3.5 - 5.1 mmol/L 11/15/2024 10:14 AM CDT [facility] CHLORIDE 103 98 - 107 mmol/L 11/15/2024 10:14 AM CDT [facility] CO2, VENOUS 25 22 - 30 mmol/L 11/15/2024 10:14 AM CDT [facility] ANION GAP 13.4 <18.0 mmol/L 11/15/2024 10:14 AM CDT [facility] GLUCOSE 208(H) 70 - 99 mg/dL 11/15/2024 10:14 AM CDT [facility] BUN 15 5 - 18 mg/dL 11/15/2024 10:14 AM CDT [facility] CREATININE, BLOOD 0.75 0.60 - 1.00 mg/dL 11/15/2024 10:14 AM CDT [facility] BUN/CREATININE RATIO 20 12 - 20 ratio 11/15/2024 10:14 AM CDT [facility] TOTAL PROTEIN 7.0 6.0 - 8.0 g/dL 11/15/2024 10:14 AM CDT [facility] ALBUMIN 4.1 3.5 - 5.0 g/dL 11/15/2024 10:14 AM CDT [facility] A/G RATIO 1.4 1.0 - 2.2 11/15/2024 10:14 AM CDT [facility] CALCIUM 8.9 8.7 - 10.5 mg/dL 11/15/2024 10:14 AM CDT [facility] T BILI 0.1(L) 0.2 - 1.2 mg/dL 11/15/2024 10:14 AM CDT [facility] SGOT (AST) 18 <43 U/L 11/15/2024 10:14 AM [facility] SGPT (ALT) 10 <56 U/L 11/15/2024 10:14 AM [facility] ALKALINE PHOSPHATASE 79 40 - 150 U/L 11/15/2024 10:14 AM [facility] IS THE PATIENT REQUIRED TO BE FASTING? No 11/15/2024 10:14 AM CDT [facility] GFR, ESTIMATED >60 >=60 11/15/2024 10:14 AM [facility] Comment: Creatinine Clearance is the preferred criteria for selecting drug dose adjustments in renally impaired patients. The GFR is provided as additional pertinent clinical information. GFR is reported in mL/min/1.73 sq m. Calculation based on the Chronic Kidney Disease Epidemiology Collaboration (CKD- EPI) equation refit without adjustment for race. GFR, EST. >60 >=60 025 10:14 AM CDT [facility] GFR, EST. NONAFRICAN >60 >=60 11/15/2024 10:14 AM [facility] Blood Venipuncture / Unknown 11/15/2024 9:21 AM CDT 11/15/2024 9:45 AM CDT Suresh Wright MD CHEMISTRY ORDERABLES Jane l Result [facility] [address] [facility] [place] [address] from Last 3 Months or Most Recently Relevant to Health Maintenance Insurance MEDICAID [facility] Care Teams Examiner Rating Clerk Relationship Specialty Start Date End Date Arthur King APRN, SALES PROJECT COORDINATOR [facility] [address] [place] [address] PCP - General Advanced Practice Nurse 12/24/22 Luzmaria Cates MD [facility] [address] [place] [phone] Consulting Physician Endocrinology 02/20/24 Henri West MD [facility] [address] [place] [phone] Consulting Physician General Surgery 07/20/24 Maura Lenz APRN, SALES PROJECT COORDINATOR [address] [place] [address] Nurse Practitioner Advanced Practice Nurse 12/07/24
== END 2025-03-22 23:32 | disposition left against medical advice (07) ==
DX: S69.91XA Unspecified injury of right wrist, hand and finger(s), initial encounter (principal)
CPT/HCPCS: 99199

== ENCOUNTER 2025-03-22 19:06 | Emergency (ER) | payer OTHER, SELFPAY ==
--- NOTE | ~2025-03-22 | XR_ITS ---
EXAM: XR hand RT min 3V DATE: 03/22/2025 19:22 HISTORY: punch wall/hand pain- bruise over 4th/5th metacarp . COMPARISON: None available. FINDINGS: Normal mineralization. Oblique fracture of the distal shaft of the right fifth metacarpal, with 18 degrees anterior angulation. No lytic or blastic lesion. Joint spaces are maintained. No ero marta or periosteal change. Soft tissues within normal limits. IMPRESSION: Angulated boxer's type fracture of the right fifth metacarpal. Reviewed, dictated and finalized at location K.
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
[2025-03-22 19:23] VITALS: BP 165/84; PULSE 88; RESP 16; TEMP 36.8; O2SAT 99
[2025-03-22] MEDS: IBUPROFEN 600 MG TABLET PO (19:37)
== END 2025-03-22 19:45 | disposition home or self-care (01) ==
PROVIDERS: Emergency Provider Nurse Practitioner Family
DX: S62.356A Nondisplaced fracture of shaft of fifth metacarpal bone, right hand, initial encounter for closed fracture (principal); W22.09XA Striking against other stationary object, initial encounter; F17.210 Nicotine dependence, cigarettes, uncomplicated; F17.290 Nicotine dependence, other tobacco product, uncomplicated; F12.90 Cannabis use, unspecified, uncomplicated
CPT/HCPCS: 29125; 73130; 99214; A4565; A9270; G0463